=== PATIENT | male | born 1930 | race Caucasian/White ===

== ENCOUNTER 2016-10-24 12:21 | Inpatient (IN) ==
[2016-10-24] MEDS ORDERED: Ipratropium/Albuterol Neb 3 ML IH ONE (12:23)
--- NOTE | 2016-10-24 12:29 | Emergency Department Note ---
Disposition Clinical Impression: Community acquired pneumonia, Hypoxia Disposition: Admitted As Inpatient Condition: Fair Referrals: Erica Bennett MD [Primary Care Provider] - Forms: ED Satisfaction Letter Time of Disposition: 14:21 SOB HPI - General Chief Complaint: ED Shortness of Breath/Dyspnea Stated Complaint: weakness/cough Time Seen by Provider: 10/24/16 12:22 Source: patient, EMS Mode of arrival: EMS Limitations: no limitations Nursing Notes Reviewed: Yes Vital Signs Reviewed: Yes - History of Present Illness 86-year-old with progressive generalized weakness for last couple days has been falling and has had a productive cough. When squad arrived his pulse ox was in the mid 80s. Squad indicates that there is concern by the patient and family of pneumonia. Pt Subjective Complaint: shortness of breath, cough Context: recent illness Severity: moderate Consistency/Duration: constant Improves with: nothing Worsens with: exertion Associated symptoms: Reports: cough, wheezing Treatment prior to arrival: oxygen, bronchodilator Cough present: Yes Cough Description: Involuntary Cough Frequency: Intermittent Sputum production: Yes Sputum Color: Yellow, Green - Related Data Home Medications Medication Instructions Recorded Confirmed Alprazolam [Xanax 0.25 MG Tablet] 0.25 mg PO BID 02/27/16 02/27/16 Amlodipine [Norvasc] 10 mg PO DAILY 02/27/16 02/27/16 Atorvastatin [Lipitor] 10 mg PO HS 02/27/16 02/27/16 Clopidogrel [Plavix] 75 mg PO DAILY 02/27/16 02/27/16 Cyanocobalamin (B-12) [Vitamin B12] 1,000 mcg IM QMONTH 02/27/16 02/27/16 Gabapentin [Neurontin] 600 mg PO BID 02/27/16 02/27/16 Glimepiride [Amaryl] 4 mg PO DAILY 02/27/16 02/27/16 Lisinopril [Zestril] 20 mg PO DAILY 02/27/16 02/27/16 Metformin [Glucophage] 1,000 mg PO BIDWM 02/27/16 02/27/16 Pramipexole [Mirapex] 0.25 mg PO DAILY 02/27/16 02/27/16 Ranitidine HCl [Zantac 75] 150 mg PO BID 02/27/16 02/27/16 Tamsulosin [Flomax] 0.8 mg PO DAILY 02/27/16 02/27/16 Allergies Allergy/AdvReac Type Severity Reaction Status Date / Time Sulfa (Sulfonamide Allergy Rash Verified 02/27/16 07:55 Antibiotics) carbidopa AdvReac Gastrointestinal Verified 02/27/16 07:55 Upset clonazepam AdvReac Gastrointestinal Verified 02/27/16 07:55 Upset clotrimazole AdvReac Gastrointestinal Verified 02/27/16 07:55 Upset fexofenadine [From Brandy] AdvReac Gastrointestinal Verified 02/27/16 07:55 Upset guaifenesin [From Robitussin] AdvReac Gastrointestinal Verified 02/27/16 07:55 Upset hydrochlorothiazide AdvReac Rash Verified 02/27/16 07:55 levodopa [From Sinemet] AdvReac Gastrointestinal Verified 02/27/16 07:55 Upset pioglitazone [From Actos] AdvReac Gastrointestinal Verified 02/27/16 07:55 Upset ropinirole [From Requip] AdvReac Gastrointestinal Verified 02/27/16 07:55 Upset sertraline [From Zoloft] AdvReac Drowsy Verified 02/27/16 07:55 tamsulosin [From Flomax] AdvReac Gastrointestinal Verified 02/27/16 07:55 Upset Constitutional: Denies: fever, chills, weakness, weight change Eyes: Denies: eye pain, eye discharge, vision change ENT ED: Denies: ear pain, throat pain, dental pain, hearing loss, epistaxis, congestion, dysphagia Cardiovascular: Denies: chest pain, palpitations, dyspnea on exertion, edema, syncope Respiratory: Reports: cough, dyspnea, wheezes. Denies: hemoptysis, stridor Gastrointestinal: Denies: abdominal pain, nausea, vomiting, diarrhea, constipation, hematemesis, melena, hematochezia Genitourinary: Denies: urgency, dysuria, frequency, hematuria Musculoskeletal: Denies: back pain, neck pain, arthralgia, myalgia Integumentary: Denies: rash, abrasion, lesions Neurological: Denies: headache, weakness, numbness, paresthesias, confusion, abnormal gait, vertigo Psychiatric: Denies: anxiety, depression, suicidal thoughts, homicidal thoughts , auditory hallucinations, visual hallucinations Endocrine: Denies: fatigue Hematological/Lymphatic: Denies: easy bleeding, easy bruising Allergic/Immunologic: Denies: facial swelling, urticaria Past Medical History - Past Medical History Medical history: Reports: diabetes, glaucoma, hyperlipidemia, hypertension, renal disease, valvular heart disease Surgical history: Reports: cholecystectomy Psychiatric history: Reports: no psych history - Social History Smoking Status: Never smoker Alcohol use: Reports: none Drug use: Reports: none Physical Exam - General Limitations: no limitations General appearance: alert, in distress (Mild) - Head Head exam: atraumatic, normocephalic, normal inspection - Eye Eye exam: Present: normal appearance, PERRL, EOMI - ENT ENT exam: normal exam, normal oropharynx, mucous membranes moist - Neck Neck exam: Present: normal inspection, full ROM, trachea midline - Chest Chest inspection: Present: normal inspection, symmetric chest wall rise - Respiratory Respiratory exam: Present: wheezes, prolonged expiratory phase - Cardiovascular Cardiovascular exam: Present: regular rate, normal rhythm, normal heart sounds - Abdominal Exam Abdominal exam: Present: soft, Non-Tender. Absent: tenderness, distention, guarding, rebound, rigidity - Extremities Exam Extremities exam: Present: normal inspection, full ROM. Absent: tenderness, pedal edema - Expanded Lower Extremity Exam Neurovascular/Tendon exam: Absent: motor deficit, sensory deficit, tendon deficit Gait: not tested/not observed - Back Exam Back exam: Present: normal inspection, full ROM. Absent: tenderness - Neurological Exam Neurological exam: Present: alert, oriented X3 - Psychiatric Psychiatric exam: Present: normal affect, normal mood - Skin Skin exam: Present: warm, dry, intact, normal color Course - Reevaluation(s) Reevaluation #1: 86-year-old comes in with cough congestion. Patient was hypoxic. Chest x-ray shows pneumonia. Will admit for further evaluation and treatment. Time: 14:34 - Consultations Consultation #1: Discussed with , admit. Time: 14:33 Vital Signs Temperature 98.2 F 10/24/16 12:28 Pulse Rate 93 10/24/16 12:28 Respiratory Rate 20 10/24/16 12:28 Blood Pressure 106/57 10/24/16 12:28 O2 Sat by Pulse Oximetry 90 L 10/24/16 12:28 Temperature 98.2 F 10/24/16 12:28 Pulse Rate 76 10/24/16 14:03 Respiratory Rate 16 10/24/16 14:03 Blood Pressure 105/52 10/24/16 14:03 O2 Sat by Pulse Oximetry 96 10/24/16 14:03 Oxygen Delivery Oxygen Delivery Nasal Cannula Shortness of Breath/Dyspnea - Lab Data Result diagrams: 10/24/16 13:02 10/24/16 13:02 Lab Results 10/24/16 10/24/16 10/24/16 Range/Units 12:51 13:02 13:02 WBC 5.6 (4.3-11.1) K/mcL RBC 4.15 L (4.19-5.50) M/mcL Hgb 13.4 (12.9-16.9) g/dL Hct 41.1 (37.5-50.1) % MCV 99.0 (83.0-100.0) fL MCH 32.3 (28.0-33.3) pg MCHC 32.6 (31.6-35.5) g/dL RDW 12.7 (11.5-14.5) % Plt Count 137 L (140-400) K/mcL MPV 9.1 L (9.4-12.4) fL Immature Gran % 0.4 (0-4) % Seg Neutrophils % 75.5 % Lymphocytes % 14.2 % Monocytes % 7.7 % Eosinophils % 1.8 % Basophils % 0.4 % Neutrophils # 4.2 (1.6-8.9) K/mcL Lymphocytes # 0.8 (0.6-4.6) K/mcL Monocytes # 0.4 (0.0-1.3) K/mcL Eosinophils # 0.1 (0.0-0.6) K/mcL Basophils # 0.0 (0.0-0.2) K/mcL ABG pH 7.40 (7.32-7.45) pH Units ABG pCO2 44 (35-45) mmHg ABG pO2 66 L (85-104) mmHg ABG HCO3 27.3 H (21-27) mEQ/L ABG Total CO2 28.7 H (20-26) mEq/L ABG O2 Saturation 93 L (95-98) % ABG Base Excess 2.1 (-2.0 to 3.0) mEq/L Blood Gas Modality NC Inspired O2 26 % Sodium 139 (136-145) mEq/L Potassium 4.8 H (3.5-4.5) mEq/L Chloride 104 (98-109) mEq/L Carbon Dioxide 26 (19-29) mEq/L BUN 40 H (8-26) mg/dL Creatinine 1.45 H (0.72-1.25) mg/dL Est GFR ( Amer) 56 L (> 60) Est GFR (Non-Af Amer) 46 L (> 60) BUN/Creatinine Ratio 28 H (6-26) Glucose 144 H (70-99) mg/dL Calculated Osmolality 300 (280-300) Lactic Acid (0.5-2.2) mmol/L Calcium 9.3 (8.6-10.8) mg/dL Troponin I (0-0.03) ng/mL B-Natriuretic Peptide (0-100) pg/mL Specimen Rejected 10/24/16 10/24/16 10/24/16 Range/Units 13:02 13:02 13:02 WBC (4.3-11.1) K/mcL RBC (4.19-5.50) M/mcL Hgb (12.9-16.9) g/dL Hct (37.5-50.1) % MCV (83.0-100.0) fL MCH (28.0-33.3) pg MCHC (31.6-35.5) g/dL RDW (11.5-14.5) % Plt Count (140-400) K/mcL MPV (9.4-12.4) fL Immature Gran % (0-4) % Seg Neutrophils % % Lymphocytes % % Monocytes % % Eosinophils % % Basophils % % Neutrophils # (1.6-8.9) K/mcL Lymphocytes # (0.6-4.6) K/mcL Monocytes # (0.0-1.3) K/mcL Eosinophils # (0.0-0.6) K/mcL Basophils # (0.0-0.2) K/mcL ABG pH (7.32-7.45) pH Units ABG pCO2 (35-45) mmHg ABG pO2 (85-104) mmHg ABG HCO3 (21-27) mEQ/L ABG Total CO2 (20-26) mEq/L ABG O2 Saturation (95-98) % ABG Base Excess (-2.0 to 3.0) mEq/L Blood Gas Modality Inspired O2 % Sodium (136-145) mEq/L Potassium (3.5-4.5) mEq/L Chloride (98-109) mEq/L Carbon Dioxide (19-29) mEq/L BUN (8-26) mg/dL Creatinine (0.72-1.25) mg/dL Est GFR ( Amer) (> 60) Est GFR (Non-Af Amer) (> 60) BUN/Creatinine Ratio (6-26) Glucose (70-99) mg/dL Calculated Osmolality (280-300) Lactic Acid 1.7 (0.5-2.2) mmol/L Calcium (8.6-10.8) mg/dL Troponin I 0.04 H* (0-0.03) ng/mL B-Natriuretic Peptide 98 (0-100) pg/mL Specimen Rejected 10/24/16 Range/Units 14:02 WBC (4.3-11.1) K/mcL RBC (4.19-5.50) M/mcL Hgb (12.9-16.9) g/dL Hct (37.5-50.1) % MCV (83.0-100.0) fL MCH (28.0-33.3) pg MCHC (31.6-35.5) g/dL RDW (11.5-14.5) % Plt Count (140-400) K/mcL MPV (9.4-12.4) fL Immature Gran % (0-4) % Seg Neutrophils % % Lymphocytes % % Monocytes % % Eosinophils % % Basophils % % Neutrophils # (1.6-8.9) K/mcL Lymphocytes # (0.6-4.6) K/mcL Monocytes # (0.0-1.3) K/mcL Eosinophils # (0.0-0.6) K/mcL Basophils # (0.0-0.2) K/mcL ABG pH (7.32-7.45) pH Units ABG pCO2 (35-45) mmHg ABG pO2 (85-104) mmHg ABG HCO3 (21-27) mEQ/L ABG Total CO2 (20-26) mEq/L ABG O2 Saturation (95-98) % ABG Base Excess (-2.0 to 3.0) mEq/L Blood Gas Modality Inspired O2 % Sodium (136-145) mEq/L Potassium (3.5-4.5) mEq/L Chloride (98-109) mEq/L Carbon Dioxide (19-29) mEq/L BUN (8-26) mg/dL Creatinine (0.72-1.25) mg/dL Est GFR ( Amer) (> 60) Est GFR (Non-Af Amer) (> 60) BUN/Creatinine Ratio (6-26) Glucose (70-99) mg/dL Calculated Osmolality (280-300) Lactic Acid (0.5-2.2) mmol/L Calcium (8.6-10.8) mg/dL Troponin I (0-0.03) ng/mL B-Natriuretic Peptide (0-100) pg/mL Specimen Rejected Labelling - EKG Data EKG attestation: Yes I reviewed and interpreted this EKG. EKG shows normal: Reports: sinus rhythm Rate: Reports: normal Rhythm: Reports: NSR [place]/QRS: Reports: IVCD Heart block present: Reports: 1st Degree When compared to previous EKG there are: no significant changes (02/27/2016) Interpretation: Reports: no acute changes
[2016-10-24 12:58] LABS: ABG Base Excess 2.1 mEq/L (-2.0 to 3.0); ABG HCO3 27.3 mEQ/L (21-27); ABG Oxygen Saturation 93 % (95-98); ABG PCO2 44 mmHg (35-45); ABG PO2 66 mmHg (85-104); ABG TCO2 28.7 mEq/L (20-26); Blood Gas FiO2 26 %
[2016-10-24 13:10] LABS: Basophils % 0.4 %; Eosinophils # 0.1 K/mcL (0.0-0.6); Eosinophils % 1.8 %; Hematocrit 41.1 % (37.5-50.1); Hemoglobin 13.4 g/dL (12.9-16.9); Immature Granulocytes % 0.4 % (0-4); Lymphocytes # 0.8 K/mcL (0.6-4.6); Lymphocytes % 14.2 %; Mean Corpuscular HGB Conc 32.6 g/dL (31.6-35.5); Mean Corpuscular Hemoglobin 32.3 pg (28.0-33.3); Mean Platelet Volume 9.1 fL (9.4-12.4); Monocytes # 0.4 K/mcL (0.0-1.3); Monocytes % 7.7 %; Neutrophils # 4.2 K/mcL (1.6-8.9); Platelet Count 137 K/mcL (140-400); Red Blood Count 4.15 M/mcL (4.19-5.50); Red Cell Distribution Width 12.7 % (11.5-14.5); Segmented Neutrophils % 75.5 %
[2016-10-24 13:24] LABS: Calcium 9.3 mg/dL (8.6-10.8); Potassium 4.8 mEq/L (3.5-4.5)
[2016-10-24] MEDS ORDERED: Levofloxacin 750 MG/150 ML 750 MG/150 ML BAG IVPB ONE (13:53)
[2016-10-24] MEDS ORDERED: Ondansetron 4 MG/2 ML VIAL IVP PRN (15:01)
[2016-10-24] MEDS ORDERED: Naloxone 0.4 MG/ML INJ IVP PRN (15:01)
[2016-10-24] MEDS ORDERED: Acetaminophen 325 MG TABLET PO PRN (15:01)
[2016-10-24] MEDS ORDERED: D5% in Water 1,000 ML IV PRN (15:05)
[2016-10-24] MEDS ORDERED: Dextrose Gel 15 GM PO PRN ×2 (15:05)
[2016-10-24] MEDS ORDERED: *HR* Dextrose 50 % in Water (Syg) 50 ML SYRINGE IVP PRN (15:05)
--- NOTE | 2016-10-24 15:08 | Internal Med History&Physical ---
Date of Encounter: 10/24/16 Time of Encounter: 14:35 Internal Medicine - H&P: HPI Chief complaint: Shortness of breath, cough x 7 weeks, fall x 1 day Admitted From: Emergency Dept Plans for Post Hospital Care: Home History of present illness: Mr. Crowder is a 86 year old male with medical history significant for DM2, hyperlipidemia, hypertension, CKDIII, valvular heart disease, BPH, presents with cough of 7 weeks duration, progressive SOB and generalized weekness. He fell yesterday and had to crawl to get to the closest seat. He was brought by EMS. He COUGH IS INTERMITTENT PRODUCTIVE OF clear mucus. He reports lower chest wall and upper abdominal pain. No orthopnea, no PND, no leg swelling. No fever, no other constitutional symptoms. No reported history of heart failure. He had a loop monitor placed by Dr Velasquez to evaluate for arrhythmia, given a history of recurrent falls in the past. His falls resolved after institution of once month vitamin B12 SHOTS. EMS reports he was hypoxic (80s) in transit. The family had concern for pneumonia. He is FULL CODE as per discussion. He has a living will. He nominates his , Argelia Crowder as his NOK/POA ([phone]) . Medical history: Reports: DM2, glaucoma, hyperlipidemia, hypertension, CKDIII, valvular heart disease, BPH, carotid artery disease, RLS, GERD Surgical history: Reports: cholecystectomy Psychiatric history: Reports: anxiety Smoking Status: Never smoker Alcohol use: Reports: none Drug use: Reports: none Family history: Father: Parkinson's disease, mother: heart failure, son: multiple myeloma, brother: HTN ROS: Cough, abdominal soreness, chest pain from coughing, lethargy, SOB/FORRESTER, positive, he denies orthopea, PND, no hemoptysis, unchaged urinary symptoms ( poor urine streaming). no GI symptoms, no new-onset neurological symptoms. No constitutional symptoms. A 10-point ROS was performed, positives and relevant negatives are detailed, system-symptom not mentioned assumed negative unless otherwise stated. Vital Signs Temperature 98.2 F 10/24/16 12:28 Pulse Rate 93 10/24/16 12:28 Respiratory Rate 20 10/24/16 12:28 Blood Pressure 106/57 10/24/16 12:28 O2 Sat by Pulse Oximetry 90 L 10/24/16 12:28 Temperature 98.2 F 10/24/16 12:28 Pulse Rate 76 10/24/16 14:03 Respiratory Rate 16 10/24/16 14:03 Blood Pressure 105/52 10/24/16 14:03 O2 Sat by Pulse Oximetry 96 10/24/16 14:03 O/E: Not in distress,wearing oxygen, saturating at 95%. 2-3L/min HEENT: Not pale, anicteric, afebrile, acyanotic, no JND Chest: Bibasilar fine crackles., otherwise clear Heart: RRR, HS1/2, no murmur Abdomen: soft, mild distension (chronic), non-tender, no masses. 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 Lab Results 10/24/16 10/24/16 10/24/16 Range/Units 12:51 13:02 13:02 WBC 5.6 (4.3-11.1) K/mcL RBC 4.15 L (4.19-5.50) M/mcL Hgb 13.4 (12.9-16.9) g/dL Hct 41.1 (37.5-50.1) % MCV 99.0 (83.0-100.0) fL MCH 32.3 (28.0-33.3) pg MCHC 32.6 (31.6-35.5) g/dL RDW 12.7 (11.5-14.5) % Plt Count 137 L (140-400) K/mcL MPV 9.1 L (9.4-12.4) fL Immature Gran % 0.4 (0-4) % Seg Neutrophils % 75.5 % Lymphocytes % 14.2 % Monocytes % 7.7 % Eosinophils % 1.8 % Basophils % 0.4 % Neutrophils # 4.2 (1.6-8.9) K/mcL Lymphocytes # 0.8 (0.6-4.6) K/mcL Monocytes # 0.4 (0.0-1.3) K/mcL Eosinophils # 0.1 (0.0-0.6) K/mcL Basophils # 0.0 (0.0-0.2) K/mcL ABG pH 7.40 (7.32-7.45) pH Units ABG pCO2 44 (35-45) mmHg ABG pO2 66 L (85-104) mmHg ABG HCO3 27.3 H (21-27) mEQ/L ABG Total CO2 28.7 H (20-26) mEq/L ABG O2 Saturation 93 L (95-98) % ABG Base Excess 2.1 (-2.0 to 3.0) mEq/L Blood Gas Modality NC Inspired O2 26 % Sodium 139 (136-145) mEq/L Potassium 4.8 H (3.5-4.5) mEq/L Chloride 104 (98-109) mEq/L Carbon Dioxide 26 (19-29) mEq/L BUN 40 H (8-26) mg/dL Creatinine 1.45 H (0.72-1.25) mg/dL Est GFR ( Amer) 56 L (> 60) Est GFR (Non-Af Amer) 46 L (> 60) BUN/Creatinine Ratio 28 H (6-26) Glucose 144 H (70-99) mg/dL Calculated Osmolality 300 (280-300) Lactic Acid (0.5-2.2) mmol/L Calcium 9.3 (8.6-10.8) mg/dL Troponin I (0-0.03) ng/mL B-Natriuretic Peptide (0-100) pg/mL Specimen Rejected 10/24/16 10/24/16 10/24/16 Range/Units 13:02 13:02 13:02 WBC (4.3-11.1) K/mcL RBC (4.19-5.50) M/mcL Hgb (12.9-16.9) g/dL Hct (37.5-50.1) % MCV (83.0-100.0) fL MCH (28.0-33.3) pg MCHC (31.6-35.5) g/dL RDW (11.5-14.5) % Plt Count (140-400) K/mcL MPV (9.4-12.4) fL Immature Gran % (0-4) % Seg Neutrophils % % Lymphocytes % % Monocytes % % Eosinophils % % Basophils % % Neutrophils # (1.6-8.9) K/mcL Lymphocytes # (0.6-4.6) K/mcL Monocytes # (0.0-1.3) K/mcL Eosinophils # (0.0-0.6) K/mcL Basophils # (0.0-0.2) K/mcL ABG pH (7.32-7.45) pH Units ABG pCO2 (35-45) mmHg ABG pO2 (85-104) mmHg ABG HCO3 (21-27) mEQ/L ABG Total CO2 (20-26) mEq/L ABG O2 Saturation (95-98) % ABG Base Excess (-2.0 to 3.0) mEq/L Blood Gas Modality Inspired O2 % Sodium (136-145) mEq/L Potassium (3.5-4.5) mEq/L Chloride (98-109) mEq/L Carbon Dioxide (19-29) mEq/L BUN (8-26) mg/dL Creatinine (0.72-1.25) mg/dL Est GFR ( Amer) (> 60) Est GFR (Non-Af Amer) (> 60) BUN/Creatinine Ratio (6-26) Glucose (70-99) mg/dL Calculated Osmolality (280-300) Lactic Acid 1.7 (0.5-2.2) mmol/L Calcium (8.6-10.8) mg/dL Troponin I 0.04 H* (0-0.03) ng/mL B-Natriuretic Peptide 98 (0-100) pg/mL Specimen Rejected 10/24/16 Range/Units 14:02 WBC (4.3-11.1) K/mcL RBC (4.19-5.50) M/mcL Hgb (12.9-16.9) g/dL Hct (37.5-50.1) % MCV (83.0-100.0) fL MCH (28.0-33.3) pg MCHC (31.6-35.5) g/dL RDW (11.5-14.5) % Plt Count (140-400) K/mcL MPV (9.4-12.4) fL Immature Gran % (0-4) % Seg Neutrophils % % Lymphocytes % % Monocytes % % Eosinophils % % Basophils % % Neutrophils # (1.6-8.9) K/mcL Lymphocytes # (0.6-4.6) K/mcL Monocytes # (0.0-1.3) K/mcL Eosinophils # (0.0-0.6) K/mcL Basophils # (0.0-0.2) K/mcL ABG pH (7.32-7.45) pH Units ABG pCO2 (35-45) mmHg ABG pO2 (85-104) mmHg ABG HCO3 (21-27) mEQ/L ABG Total CO2 (20-26) mEq/L ABG O2 Saturation (95-98) % ABG Base Excess (-2.0 to 3.0) mEq/L Blood Gas Modality Inspired O2 % Sodium (136-145) mEq/L Potassium (3.5-4.5) mEq/L Chloride (98-109) mEq/L Carbon Dioxide (19-29) mEq/L BUN (8-26) mg/dL Creatinine (0.72-1.25) mg/dL Est GFR ( Amer) (> 60) Est GFR (Non-Af Amer) (> 60) BUN/Creatinine Ratio (6-26) Glucose (70-99) mg/dL Calculated Osmolality (280-300) Lactic Acid (0.5-2.2) mmol/L Calcium (8.6-10.8) mg/dL Troponin I (0-0.03) ng/mL B-Natriuretic Peptide (0-100) pg/mL Specimen Rejected Labelling CXR: Cardiomegaly with perihilar and interstitial prominence consistent with congestive heart failure vs interstitial pneumonia. No definitive infiltrates. EKG: NSR, first degree heart block, IVCD, no significant when compared to EKG of 02/27/2016. IMP Interstitial pneumonia vs decompensated diastolic heart failure, (failed out- patient treatment). Hypoxic respiratory failure related to the above Fall related to hypoxia and or deconditioning Marginal elevation of troponin likely related to diastolic heart failure Chronic morbidities HTN HLD Carotid artery disease CKDIII BPH Anxiety disorder Restless leg syndrome. PLAN Admit Obtain CT chest and 2D ECHO Lasix IVP 40 mg stat, then 20mg QD Urine for legionella antigen, rapid influenza test, serum for mycoplasma IgG & M. Levaquin IV 500 MG QD Oxygen supplentation by nasal cannula to keep pulse ox>94% Trend troponin Levonox 30mg SC for DVT prophylaxis Ranitidine 150mg po BID for GERD and GI prophylaxis Hold Glimepride and Metformin Low dose insulin sliding scale, accuchecks QAC/HS Hold Lisinopril Continue other medications of chronic morbidities I discussed my findings and assessment with the patient, his and his son are at bedside, they verbalized understanding and are agreeable to admission. He is admitted toto failed out-patient treatment, hypoxia. He needs further evaluation. Past Med Surg Social Fam HX - Past Medical History Medical history: diabetes, glaucoma, hyperlipidemia, hypertension, renal disease , valvular heart disease Psychiatric history: no psych history - Past Surgical History Surgical History: cholecystectomy - Social History Smoking Status: Never smoker Alcohol use: none Drug use: none Internal Medicine - H&P: Meds Alprazolam [Xanax 0.25 MG Tablet] 0.25 mg PO BID 02/27/16 [History] Amlodipine [Norvasc] 10 mg PO DAILY 02/27/16 [History] Atorvastatin [Lipitor] 10 mg PO HS 02/27/16 [History] Clopidogrel [Plavix] 75 mg PO DAILY 02/27/16 [History] Cyanocobalamin (B-12) [Vitamin B12] 1,000 mcg IM QMONTH 02/27/16 [History] Gabapentin [Neurontin] 600 mg PO BID 02/27/16 [History] Glimepiride [Amaryl] 4 mg PO DAILY 02/27/16 [History] Lisinopril [Zestril] 20 mg PO DAILY 02/27/16 [History] Metformin [Glucophage] 1,000 mg PO BIDWM 02/27/16 [History] Pramipexole [Mirapex] 0.25 mg PO DAILY 02/27/16 [History] Ranitidine HCl [Zantac 75] 150 mg PO BID 02/27/16 [History] Tamsulosin [Flomax] 0.8 mg PO DAILY 02/27/16 [History] Allergies Sulfa (Sulfonamide Antibiotics) Allergy (Verified 02/27/16 07:55) Rash carbidopa Adverse Reaction (Verified 02/27/16 07:55) Gastrointestinal Upset clonazepam Adverse Reaction (Verified 02/27/16 07:55) Gastrointestinal Upset clotrimazole Adverse Reaction (Verified 02/27/16 07:55) Gastrointestinal Upset fexofenadine [From Brandy] Adverse Reaction (Verified 02/27/16 07:55) Gastrointestinal Upset guaifenesin [From Robitussin] Adverse Reaction (Verified 02/27/16 07:55) Gastrointestinal Upset hydrochlorothiazide Adverse Reaction (Verified 02/27/16 07:55) Rash levodopa [From Sinemet] Adverse Reaction (Verified 02/27/16 07:55) Gastrointestinal Upset pioglitazone [From Actos] Adverse Reaction (Verified 02/27/16 07:55) Gastrointestinal Upset ropinirole [From Requip] Adverse Reaction (Verified 02/27/16 07:55) Gastrointestinal Upset sertraline [From Zoloft] Adverse Reaction (Verified 02/27/16 07:55) Drowsy tamsulosin [From Flomax] Adverse Reaction (Verified 02/27/16 07:55) Gastrointestinal Upset All Systems PM: A 10-system review of systems was performed and is negative for pertinent findings except as documented above in the HPI. - Constitutional Vitals: Temp Pulse Resp BP Pulse Ox 98.2 F 76 16 105/52 96 10/24/16 12:28 10/24/16 14:03 10/24/16 14:03 10/24/16 14:03 10/24/16 14:03 Internal Med - H&P Results - Labs CBC & Chem 7: 10/24/16 13:02 10/24/16 13:02 Labs: Short CBC 10/24/16 Range/Units 13:02 WBC 5.6 (4.3-11.1) K/mcL Hgb 13.4 (12.9-16.9) g/dL Hct 41.1 (37.5-50.1) % Plt Count 137 L (140-400) K/mcL Neutrophils # 4.2 (1.6-8.9) K/mcL BMP 10/24/16 13:02 Sodium 139 Potassium 4.8 H Chloride 104 Carbon Dioxide 26 BUN 40 H Creatinine 1.45 H Glucose 144 H Calcium 9.3 Cardiac Enzymes 10/24/16 Range/Units 13:02 Troponin I 0.04 H* (0-0.03) ng/mL - ABG Interpretation ABG results: 10/24/16 12:51 ABG pH 7.40 ABG pCO2 44 ABG pO2 66 L ABG HCO3 27.3 H ABG Total CO2 28.7 H ABG O2 Saturation 93 L ABG Base Excess 2.1 - Impressions ITS Impressions Chest X-Ray 10/24/16 12:23 IMPRESSION: Findings are most consistent with mild congestive heart failure. Superimposed basilar pneumonia is not excluded. D/ / Edgar Ramsey MD / Edgar Ramsey MD Interpreting Provider: Edgar Ramsey MD
[2016-10-24] MEDS ORDERED: Furosemide 40 MG/4 ML VIAL IVP ONE (15:16)
[2016-10-24] MEDS: Albuterol 2.5 MG/3 ML NEBULIZER IH SCH ×2 (15:49→22:09)
[2016-10-24] MEDS: Benzonatate 100 MG CAPSULE PO SCH ×2 (17:38→20:50)
[2016-10-24] MEDS: Insulin LISPRO 300 UNITS/3 ML VIAL SQ SCH ×2 (17:58→20:51)
[2016-10-24 19:55] LABS: Hemoglobin A1C 8.2 %
[2016-10-24] MEDS: ALPRAZolam 0.25 MG TABLET PO SCH (20:50)
[2016-10-24] MEDS: Famotidine 20 MG TABLET PO SCH (20:50)
[2016-10-24] MEDS: Gabapentin 300 MG CAPSULE PO SCH (20:50)
[2016-10-24] MEDS: Finasteride 5 MG TABLET PO SCH (20:50)
[2016-10-24] MEDS ORDERED: Budesonide/Formoterol 160/4.5 MDI IH SCH (22:00)
[2016-10-25] MEDS: Albuterol 2.5 MG/3 ML NEBULIZER IH SCH ×4 (04:42→23:18)
[2016-10-25 05:52] LABS: Calcium 8.8 mg/dL (8.6-10.8); Potassium 4.6 mEq/L (3.5-4.5)
[2016-10-25] MEDS ORDERED: *HR* Enoxaparin 40 MG/0.4 ML SYRINGE SQ SCH ×2 (06:00→09:38)
[2016-10-25] MEDS: Insulin LISPRO 300 UNITS/3 ML VIAL SQ SCH ×4 (08:03→20:14)
[2016-10-25] MEDS: Furosemide 20 MG/2 ML VIAL IVP SCH (08:04)
[2016-10-25] MEDS: Famotidine 20 MG TABLET PO SCH ×2 (08:04→20:14)
[2016-10-25] MEDS: Gabapentin 300 MG CAPSULE PO SCH ×2 (08:06→20:12)
[2016-10-25] MEDS: Benzonatate 100 MG CAPSULE PO SCH ×3 (08:06→20:13)
[2016-10-25] MEDS: ALPRAZolam 0.25 MG TABLET PO SCH ×2 (08:06→20:13)
[2016-10-25] MEDS: amLODIPine 5 MG TABLET PO SCH (08:08)
[2016-10-25] MEDS ORDERED: Finasteride 5 MG TABLET PO SCH (09:00)
[2016-10-25] MEDS: GuaiFENesin/Codeine Oral Soln 5 ML UDC PO PRN ×2 (09:30→18:20)
--- NOTE | 2016-10-25 09:52 | Internal Med Progress Note ---
Date of Encounter: 10/25/16 Time of Encounter: 09:49 - Assessment and plan (1) Acute respiratory failure with hypoxia Current Visit: Yes Status: Acute Assessment and plan: Chest x-ray is suggestive of mild cardiomegaly and pulmonary vascular condition along with bibasilar infiltrates. Likely secondary to pneumonia. Continue IV antibiotics and low-dose IV Lasix. Echocardiogram shows preserved ejection fraction, mild left ventricular diastolic dysfunction, mild pulmonary and tricuspid regurgitation along with mild pulmonary hypertension. Continue supplemental oxygen, improving oxygen requirements. (2) Community acquired pneumonia Current Visit: Yes Status: Acute Assessment and plan: Plan as above. Patient appears weak, physical and occupational therapy evaluation. (3) Essential hypertension Current Visit: Yes Status: Chronic (4) BPH (benign prostatic hyperplasia) Current Visit: Yes Status: Chronic Qualifiers: Prostatic enlargement morphology: unspecified morphology Lower urinary tract symptom presence: presence of symptoms unspecified Qualified Code(s): N40.0 - Benign prostatic hyperplasia without lower urinary tract symptoms (5) Diabetes mellitus Current Visit: Yes Status: Chronic Assessment and plan: Hemoglobin A1c noted to be 8.2%. Continue Accu-Chek blood glucose monitoring with sliding scale insulin. Diabetic diet. Qualifiers: Diabetes mellitus type: type 2 Diabetes mellitus complication status: with kidney complications Diabetes mellitus complication detail: with chronic kidney disease Diabetes mellitus termite 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 helper insulin use: without termite 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 helper use Chronic kidney disease stage: stage 3 (moderate) Qualified Code(s): E11.22 - Type 2 diabetes mellitus with diabetic chronic kidney disease; N18.3 - Chronic kidney disease, stage 3 (moderate) (6) CKD (chronic kidney disease) Current Visit: Yes Status: Chronic Assessment and plan: Patient noted to have acute on chronic renal failure likely related to underlying infection along with the use of IV diuretics. Serum creatinine currently trending down to his baseline. Continue to monitor, dose antibiotics according to current GFR. Qualifiers: Chronic kidney disease stage: stage 3 (moderate) Qualified Code(s): N18.3 - Chronic kidney disease, stage 3 (moderate) - Subjective Interval history: Noted to have hacking cough, mostly non-productive, with associated shortness of breath; no chest pain, palpitations, dizziness, nausea or vomiting; has implantable loop recorder in place for almost an year for unexplained syncope, which has been uneventful so far; - Constitutional Vitals: Temp Pulse Resp BP Pulse Ox 97.6 F 63 18 95/57 92 L 10/25/16 07:19 10/25/16 07:19 10/25/16 07:19 10/25/16 07:19 10/25/16 07:19 General appearance: Present: mild distress, A&O X 3, answers questions appropriately - Head Head exam: Present: atraumatic, normocephalic - Neck Neck exam general surgery: Present: supple, trachea midline. Absent: lymphadenopathy - Respiratory Respiratory exam: Present: rales (bibasal crepts+). Absent: accessory muscle use, rhonchi, wheezes - Cardiovascular Cardiovascular exam: Present: RRR, +S1, +S2. Absent: diastolic murmur, gallop, rubs, systolic murmur - GI/Abdominal GI/Abdominal exam: Present: normal bowel sounds, soft, no peritoneal signs. Absent: distended, tenderness - Extremities Exam Extremities exam: Present: full ROM, pedal edema (trace), warm, radial pulses palpable and symetrical. Absent: calf tenderness, cyanotic - Neurological Exam Neurological exam: Present: CN II-XII intact, oriented X3, no focal deficits. Absent: pronater drift, facial droop, speech deficit - Skin Skin exam: Present: dry, intact Internal Medicine: Result - Labs CBC & Chem 7: 10/24/16 13:02 10/25/16 04:31 Labs: BMP 10/25/16 04:31 Sodium 142 Potassium 4.6 H Chloride 104 Carbon Dioxide 28 BUN 37 H Creatinine 1.39 H Glucose 55 L Calcium 8.8 Cardiac Enzymes 10/24/16 10/25/16 Range/Units 19:39 04:31 Troponin I 0.03 0.03 (0-0.03) ng/mL - ABG Interpretation ABG results: ABG ABG pH 7.40 pH Units (7.32-7.45) 10/24/16 12:51 ABG pCO2 44 mmHg (35-45) 10/24/16 12:51 ABG pO2 66 mmHg (85-104) L 10/24/16 12:51 ABG O2 Saturation 93 % (95-98) L 10/24/16 12:51 Consult Discharge Plan - Plan Referrals: Erica Bennett MD [Primary Care Provider] -
--- NOTE | 2016-10-25 13:38 | ECHO - Doppler Report ---
Echocardiogram Name: Michael Crowder Date of Study: 10/25/2016 Date: 1930 Ht: 63.0 in Medical Record#: [id number] Age: 86 Wt: 143.0 lb Gender: Male BSA: 1.68 Order #: [id number] Location: [facility] Room #: 2A23 Reading Physician: Sagar Gomez DO, WILLIAM, EMILEE PARRA Medical Field Representative: [place] RDCS Ordering Physician: Chris Dunne MD Primary Physician: None Indications: Diastolic heart failure, Shortness of breath Impressions: LVEF 65%. Normal LV chamber size, wall thickness and function. Mild left ventricular diastolic dysfunction. Normal right ventricular structure and function. Mild tricuspid regurgitation. Mild pulmonic regurgitation. Borderline mild pulmonary hypertension. Estimated RVSP is 36 mmHg. No evidence of PFO with agitated saline contrast. Left Ventricular Wall Motion: Rest Echo Findings All wall segments showed normal motion. Findings: Study Quality * Technically adequate exam. ECG Findings * Normal sinus rhythm. Left Ventricle * LVEF 65%. * Normal LV chamber size, wall thickness and function. * Mild left ventricular diastolic dysfunction. Right Ventricle * Normal right ventricular structure and function. Left Atrium * Mildly dilated left atrium. Right Atrium * Normal right atrial size. Interatrial Septum * No evidence of PFO by color Doppler. * No evidence of PFO with agitated saline contrast. Aortic Valve * Trileaflet aortic valve. * Mildly sclerotic aortic valve leaflets. * No aortic regurgitation. * No aortic stenosis. Mitral Valve * Mildly thickened mitral valve leaflets. * Trace mitral regurgitation. * No mitral stenosis. Tricuspid Valve * Normal tricuspid valve structure. * Mild tricuspid regurgitation. * Borderline mild pulmonary hypertension. * Estimated RVSP is 36 mmHg. * Estimated RA pressure is 5 mmHg. Pulmonic Valve * Normal pulmonic valve structure. * Mild pulmonic regurgitation. Aorta * Normally sized aortic root. Pericardium * There is a trivial pericardial effusion present. IVC * Normal IVC dimensions and inspiratory collapse. Device lead * Device listed in history, but leads not well visualized. History Hypertension Diabetes Hypercholesteremia Family History of CAD History of CAD/PTCA Pacer/ICD Implant 01/28/16 a Previous Echo was performed. Measurements: BP: 95/ 57 2D Normal Values RVIDd: 2.70 cm <2.7 cm IVSd: .80 cm 0.6 - 1.0 cm LVIDd: 4.40 cm 3.7 - 5.6 cm LVPWd: 1.00 cm 0.6 - 1.1 cm LVIDs: 2.20 cm 1.5 - 3.6 cm AO: 2.70 cm < 4.0 cm LA: 3.50 cm 2.0 - 4.0cm %FS: 50.00 cm >25 % LA volume: 50 Mitral Valve Peak E:.77 m/sec Peak A:.89 m/sec E/A Ratio:0.9 Peak E' Lat Umair:5.07 cm/s Peak E' Med Umair:4.87 cm/s E/E' Lat Ratio:15.2 E/E' Med Ratio:15.8 Tricuspid Valve TV Regurg Peak Grad: 31.00mmHg TV Regurg Peak Umair: 2.79m/sec Updated by Sagar Gomez DO, WILLIAM, EMILEE PARRA on 10/25/2016 1:33:07 PM electronically signed on 10/25/2016 1:33:58 PM with status of Final Wall Motion Richter: 1=Normal, 2=Hypokinesis, 3=Akinesis, 4=Dyskinesis, 5=Aneurysmal, 6=Hyperkinetic, X=Not Visualized (Blank)=Missing
[2016-10-25 17:17] LABS: Bilirubin,Urine Negative (Negative); Blood,Urine Negative (Negative); Clarity,Urine Clear (Clear); Color,Urine Yellow (Yellow); Glucose,Urine (UA) Normal (Normal); Ketones,Urine Negative (Negative); Leukocyte Esterase,Urine Negative (Negative); Nitrite,Urine Negative (Negative); PH,Urine 5.5 pH Units (5.0-8.0); Protein,Urine Negative (Neg-Trace); Specific Gravity,Urine 1.016 (1.010-1.025); Urobilinogen,Urine Normal (Normal)
[2016-10-25] MEDS: *HR* Heparin 5,000 UNIT/ML VIAL SQ SCH (18:17)
--- NOTE | 2016-10-25 20:00 | Electrocardiograph Report ---
[facility] Test Date: 2016-10-24 Pat Name: Michael Crowder Department: 103 Room: 2A23 Gender: M Pay Station Collector: CARLYLE : 1930 Requested By: Sudhakar Yan Order Number: [id number] Reading MD: Sagar Gomez DO Measurements Intervals [place] Rate: 81 P: 62 MS: 262 QRS: -55 QRSD: 119 T: 28 QT: 347 QTc: 384 Interpretive Statements SINUS RHYTHM WITH FIRST DEGREE AV BLOCK MARKED LEFT AXIS DEVIATION INTRAVENTRICULAR CONDUCTION DELAY Electronically Signed On 10-25-16 19:59:54 EST by Sagar Gomez DO
[2016-10-25] MEDS: Finasteride 5 MG TABLET PO SCH (20:13)
[2016-10-26 05:13] LABS: Calcium 8.6 mg/dL (8.6-10.8); Potassium 4.5 mEq/L (3.5-4.5)
[2016-10-26] MEDS: Albuterol 2.5 MG/3 ML NEBULIZER IH SCH ×2 (05:58→10:21)
[2016-10-26] MEDS: *HR* Heparin 5,000 UNIT/ML VIAL SQ SCH ×2 (06:10→19:23)
[2016-10-26] MEDS: Insulin LISPRO 300 UNITS/3 ML VIAL SQ SCH ×4 (08:00→20:46)
[2016-10-26] MEDS: ALPRAZolam 0.25 MG TABLET PO SCH ×2 (08:38→20:44)
[2016-10-26] MEDS: amLODIPine 5 MG TABLET PO SCH (08:38)
[2016-10-26] MEDS: Furosemide 20 MG/2 ML VIAL IVP SCH (08:39)
[2016-10-26] MEDS: Benzonatate 100 MG CAPSULE PO SCH ×3 (08:39→20:43)
[2016-10-26] MEDS: Gabapentin 300 MG CAPSULE PO SCH ×2 (08:39→20:43)
[2016-10-26] MEDS: Famotidine 20 MG TABLET PO SCH ×2 (08:39→20:44)
[2016-10-26] MEDS ORDERED: Levofloxacin 750 MG/150 ML 750 MG/150 ML BAG IVPB SCH (09:00)
--- NOTE | 2016-10-26 09:08 | Internal Med Progress Note ---
Date of Encounter: 10/26/16 Time of Encounter: 09:06 - Assessment and plan (1) Acute respiratory failure with hypoxia Current Visit: Yes Status: Acute Assessment and plan: Chest x-ray is suggestive of mild cardiomegaly and pulmonary vascular congestion along with bibasilar infiltrates. Likely secondary to pneumonia. Improving. Continue IV antibiotics and hold IV Lasix. Echocardiogram shows preserved ejection fraction, mild left ventricular diastolic dysfunction, mild pulmonary and tricuspid regurgitation along with mild pulmonary hypertension. Continue supplemental oxygen, improving oxygen requirements. May need home oxygen evaluation prior to discharge. (2) Community acquired pneumonia Current Visit: Yes Status: Acute Assessment and plan: Plan as above. Blood cultures remain negative so far. Urine Legionella antigen negative. Influenza nasal swabs negative. Physical and occupational therapy evaluation pending. (3) Essential hypertension Current Visit: Yes Status: Chronic (4) BPH (benign prostatic hyperplasia) Current Visit: Yes Status: Chronic Qualifiers: Prostatic enlargement morphology: unspecified morphology Lower urinary tract symptom presence: presence of symptoms unspecified Qualified Code(s): N40.0 - Benign prostatic hyperplasia without lower urinary tract symptoms (5) Diabetes mellitus Current Visit: Yes Status: Chronic Assessment and plan: Hemoglobin A1c noted to be 8.2%. Continue Accu-Chek blood glucose monitoring with sliding scale insulin. Diabetic diet. Qualifiers: Diabetes mellitus type: type 2 Diabetes mellitus complication status: with kidney complications Diabetes mellitus complication detail: with chronic kidney disease Diabetes mellitus intermediate school teacher insulin use: without assisted use Chronic kidney disease stage: stage 3 (moderate) Qualified Code(s): E11.22 - Type 2 diabetes mellitus with diabetic chronic kidney disease; N18.3 - Chronic kidney disease, stage 3 (moderate) (6) CKD (chronic kidney disease) Current Visit: Yes Status: Chronic Assessment and plan: Serum creatinine noted to be between 1.3 and 1.4, which is his baseline. Discontinue diuretics today. Continue to monitor, dose antibiotics according to current GFR. Qualifiers: Chronic kidney disease stage: stage 3 (moderate) Qualified Code(s): N18.3 - Chronic kidney disease, stage 3 (moderate) - Subjective Interval history: Appears much better today. Able to sit up at the age of bed. Improved cough and shortness of breath. No chest pain, orthopnea or leg swelling. No fever or chills. Plan of care explained to the patient and at bedside. - Constitutional Vitals: Temp Pulse Resp BP Pulse Ox 98.2 F 86 18 120/71 96 10/26/16 07:29 10/26/16 07:29 10/26/16 07:29 10/26/16 07:29 10/26/16 07:29 General appearance: Present: A&O X 3, answers questions appropriately - Respiratory Respiratory exam: Present: CTAB. Absent: accessory muscle use, rales, rhonchi, wheezes - Cardiovascular Cardiovascular exam: Present: RRR, +S1, +S2. Absent: diastolic murmur, gallop, rubs, systolic murmur - GI/Abdominal GI/Abdominal exam: Present: normal bowel sounds, soft, no peritoneal signs. Absent: distended, tenderness - Extremities Exam Extremities exam: Present: full ROM, warm, radial pulses palpable and symetrical. Absent: calf tenderness, cyanotic, pedal edema - Neurological Exam Neurological exam: Present: CN II-XII intact, oriented X3, no focal deficits. Absent: pronater drift, facial droop, speech deficit - Skin Skin exam: Present: dry, intact Internal Medicine: Result - Labs CBC & Chem 7: 10/24/16 13:02 10/26/16 04:16 Labs: BMP 10/26/16 04:16 Sodium 140 Potassium 4.5 Chloride 105 Carbon Dioxide 28 BUN 33 H Creatinine 1.41 H Glucose 117 H Calcium 8.6 Urine 10/25/16 Range/Units 17:05 Urine Color Yellow (Yellow) Urine Clarity Clear (Clear) Urine pH 5.5 (5.0-8.0) pH Units Ur Specific [place] 1.016 (1.010-1.025) Urine Protein Negative (Neg-Trace) mg/dL Urine Glucose (UA) Normal (Normal) mg/dL - ABG Interpretation ABG results: ABG ABG pH 7.40 pH Units (7.32-7.45) 10/24/16 12:51 ABG pCO2 44 mmHg (35-45) 10/24/16 12:51 ABG pO2 66 mmHg (85-104) L 10/24/16 12:51 ABG O2 Saturation 93 % (95-98) L 10/24/16 12:51 Consult Discharge Plan - Plan Referrals: Erica Bennett MD [Primary Care Provider] -
[2016-10-26] MEDS ORDERED: Albuterol 2.5 MG/3 ML NEBULIZER IH PRN (12:47)
[2016-10-26] MEDS: Finasteride 5 MG TABLET PO SCH (20:43)
[2016-10-27 06:03] LABS: BUN/Creatinine Ratio 26 (6-26); Blood Urea Nitrogen 34 mg/dL (8-26); Calcium 8.4 mg/dL (8.6-10.8); Carbon Dioxide 30 mEq/L (19-29); Chloride 104 mEq/L (98-109); Glucose 126 mg/dL (70-99); Osmolality,Calculated 299 (280-300); Potassium 4.3 mEq/L (3.5-4.5); Sodium 140 mEq/L (136-145); eGFR For African Americans > 60 (> 60); eGFR For Non-African Americans 52 (> 60)
[2016-10-27] MEDS: Insulin LISPRO 300 UNITS/3 ML VIAL SQ SCH ×4 (07:43→22:48)
[2016-10-27] MEDS: ALPRAZolam 0.25 MG TABLET PO SCH ×2 (09:36→23:12)
[2016-10-27] MEDS: Gabapentin 300 MG CAPSULE PO SCH ×2 (09:36→23:12)
[2016-10-27] MEDS: *HR* Heparin 5,000 UNIT/ML VIAL SQ SCH ×2 (09:36→23:12)
[2016-10-27] MEDS: Benzonatate 100 MG CAPSULE PO SCH ×3 (09:36→23:12)
[2016-10-27] MEDS: Famotidine 20 MG TABLET PO SCH ×2 (09:36→23:13)
[2016-10-27] MEDS: amLODIPine 5 MG TABLET PO SCH (09:36)
--- NOTE | 2016-10-27 16:37 | Internal Med Progress Note ---
Date of Encounter: 10/27/16 Time of Encounter: 09:55 - Assessment and plan (1) Acute respiratory failure with hypoxia Current Visit: Yes Status: Acute Assessment and plan: Chest x-ray is suggestive of mild cardiomegaly and pulmonary vascular congestion along with bibasilar infiltrates. Likely secondary to pneumonia. Improving. Continue IV antibiotics Echocardiogram shows preserved ejection fraction, mild left ventricular diastolic dysfunction, mild pulmonary and tricuspid regurgitation along with mild pulmonary hypertension. Continue supplemental oxygen, improving oxygen requirements. Will requalify for home O2 a.m (2) Community acquired pneumonia Current Visit: Yes Status: Acute Assessment and plan: Plan as above. Blood cultures remain negative so far. Urine Legionella antigen negative. Influenza nasal swabs negative. Physical and occupational therapy evaluation pending. (3) BPH (benign prostatic hyperplasia) Current Visit: Yes Status: Chronic Qualifiers: Prostatic enlargement morphology: unspecified morphology Lower urinary tract symptom presence: presence of symptoms unspecified Qualified Code(s): N40.0 - Benign prostatic hyperplasia without lower urinary tract symptoms (4) CKD (chronic kidney disease) Current Visit: Yes Status: Chronic Assessment and plan: Serum creatinine noted to be between 1.3 and 1.4, which is his baseline. Continue to monitor, dose antibiotics according to current GFR. Qualifiers: Chronic kidney disease stage: stage 3 (moderate) Qualified Code(s): N18.3 - Chronic kidney disease, stage 3 (moderate) (5) Diabetes mellitus Current Visit: Yes Status: Chronic Assessment and plan: Hemoglobin A1c noted to be 8.2%. Continue Accu-Chek blood glucose monitoring with sliding scale insulin. Diabetic diet. Qualifiers: Diabetes mellitus type: type 2 Diabetes mellitus complication status: with kidney complications Diabetes mellitus complication detail: with chronic kidney disease Diabetes mellitus correction insulin use: without manager intermediate use Chronic kidney disease stage: stage 3 (moderate) Qualified Code(s): E11.22 - Type 2 diabetes mellitus with diabetic chronic kidney disease; N18.3 - Chronic kidney disease, stage 3 (moderate) (6) Essential hypertension Current Visit: Yes Status: Chronic Assessment and plan: BP running low Diuretics have been held Decrease norvasc to 2.5mg daily, will titrate up prn - Subjective Interval history: 86 Y/O M being managed for acute hypoxic respiratory failure secondary to bibasilar pneumonia, Pulmonary HTN and LVDD. BIBI on CKD ihc has resolved, as creatinine is back to abseline Blood culture, Urine legionella, Strep antigen are negative till date patient is awaiting PT review, and hoe O2 qualification Today he complained of dizziness upon ambulation. His O2 sat hovers around 90-92 % on room air Will keep patient for one more night and requalify him a.m BP is running low, will decrease amlodipine and will monitor - Constitutional Vitals: Temp Pulse Resp BP Pulse Ox 97.7 F 58 18 109/59 96 10/27/16 16:18 10/27/16 16:18 10/27/16 16:18 10/27/16 16:18 10/27/16 16:18 General appearance: Present: A&O X 3, pleasant, no acute distress, answers questions appropriately - Head Head exam: Present: atraumatic, normocephalic - Eye Eye exam: Present: PERRL, conjuntiva pink, sclera anicteric Pupils: Present: PERRL - Neck Neck exam general surgery: Present: supple, trachea midline. Absent: lymphadenopathy - Respiratory Respiratory exam: Present: rhonchi - Cardiovascular Cardiovascular exam: Present: RRR, +S1, +S2. Absent: diastolic murmur, gallop, rubs, systolic murmur - GI/Abdominal GI/Abdominal exam: Present: normal bowel sounds, soft, no peritoneal signs. Absent: distended, tenderness - Extremities Exam Extremities exam: Present: pedal edema - Neurological Exam Neurological exam: Present: CN II-XII intact, oriented X3, no focal deficits. Absent: pronater drift, facial droop, speech deficit - Skin Skin exam: Present: dry Internal Medicine: Result - Labs CBC & Chem 7: 10/24/16 13:02 10/27/16 05:30 Labs: BMP 10/27/16 05:30 Sodium 140 Potassium 4.3 Chloride 104 Carbon Dioxide 30 H BUN 34 H Creatinine 1.31 H Glucose 126 H Calcium 8.4 L - ABG Interpretation ABG results: ABG ABG pH 7.40 pH Units (7.32-7.45) 10/24/16 12:51 ABG pCO2 44 mmHg (35-45) 10/24/16 12:51 ABG pO2 66 mmHg (85-104) L 10/24/16 12:51 ABG O2 Saturation 93 % (95-98) L 10/24/16 12:51 Consult Discharge Plan - Plan Referrals: Erica Bennett MD [Primary Care Provider] - 10/30/16 11:15 am (Please follow up as schedule...)
[2016-10-27] MEDS: Finasteride 5 MG TABLET PO SCH (23:13)
[2016-10-28 05:43] LABS: Basophils % 0.3 %; Eosinophils # 0.1 K/mcL (0.0-0.6); Eosinophils % 3.9 %; Immature Granulocytes % 0.6 % (0-4); Lymphocytes # 1.1 K/mcL (0.6-4.6); Lymphocytes % 32.4 %; Mean Corpuscular HGB Conc 32.6 g/dL (31.6-35.5); Mean Platelet Volume 9.4 fL (9.4-12.4); Monocytes # 0.3 K/mcL (0.0-1.3); Monocytes % 9.7 %; Neutrophils # 1.8 K/mcL (1.6-8.9); Platelet Count 151 K/mcL (140-400); Red Blood Count 3.47 M/mcL (4.19-5.50); Segmented Neutrophils % 53.1 %
[2016-10-28 05:45] LABS: Hemoglobin 11.1 g/dL (12.9-16.9)
[2016-10-28 05:57] LABS: BUN/Creatinine Ratio 27 (6-26); Blood Urea Nitrogen 30 mg/dL (8-26); Calcium 8.5 mg/dL (8.6-10.8); Carbon Dioxide 27 mEq/L (19-29); Chloride 107 mEq/L (98-109); Glucose 101 mg/dL (70-99); Osmolality,Calculated 300 (280-300); Potassium 4.2 mEq/L (3.5-4.5); Sodium 142 mEq/L (136-145); eGFR For African Americans > 60 (> 60); eGFR For Non-African Americans > 60 (> 60)
[2016-10-28 06:21] LABS: Platelet Estimate Normal (Normal)
[2016-10-28] MEDS ORDERED: 0.9 % Sodium Chloride 500 ML IVC ONE (08:01)
[2016-10-28] MEDS: *HR* Heparin 5,000 UNIT/ML VIAL SQ SCH (08:07)
[2016-10-28] MEDS: Benzonatate 100 MG CAPSULE PO SCH (08:08)
[2016-10-28] MEDS: ALPRAZolam 0.25 MG TABLET PO SCH (08:08)
[2016-10-28] MEDS: Insulin LISPRO 300 UNITS/3 ML VIAL SQ SCH ×2 (08:08→11:30)
[2016-10-28] MEDS: Gabapentin 300 MG CAPSULE PO SCH (08:09)
[2016-10-28] MEDS: Famotidine 20 MG TABLET PO SCH (08:09)
[2016-10-28] MEDS ORDERED: amLODIPine 5 MG TABLET PO SCH (09:00)
[2016-10-28] MEDS ORDERED: levoFLOXacin 750 MG TABLET PO SCH (09:00)
[2016-10-28 10:41] VITALS: BP 107/67
--- NOTE | 2016-10-28 13:13 | Discharge Summary ---
Date of Encounter: 10/28/16 Time of Encounter: 09:25 - Discharge Diagnosis (1) Acute respiratory failure with hypoxia Priority: Primary Status: Resolved (2) Community acquired pneumonia Priority: Primary Status: Acute (3) BPH (benign prostatic hyperplasia) Priority: Secondary Status: Chronic Qualifiers: Prostatic enlargement morphology: unspecified morphology Lower urinary tract symptom presence: presence of symptoms unspecified Qualified Code(s): N40.0 - Benign prostatic hyperplasia without lower urinary tract symptoms (4) CKD (chronic kidney disease) Priority: Secondary Status: Chronic Qualifiers: Chronic kidney disease stage: stage 3 (moderate) Qualified Code(s): N18.3 - Chronic kidney disease, stage 3 (moderate) (5) Diabetes mellitus Priority: Secondary Status: Chronic Qualifiers: Diabetes mellitus type: type 2 Diabetes mellitus complication status: with kidney complications Diabetes mellitus complication detail: with chronic kidney disease Diabetes mellitus rodent 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 insulin use: without nursing home use Chronic kidney disease stage: stage 3 (moderate) Qualified Code(s): E11.22 - Type 2 diabetes mellitus with diabetic chronic kidney disease; N18.3 - Chronic kidney disease, stage 3 (moderate) (6) Essential hypertension Priority: Secondary Status: Chronic - Discharge Medications Prescriptions: GuaiFENesin/Codeine [ROBITUSSIN w/CODEINE] 10 ml PO Q6HR PRN #200 ml PRN Reason: Cough Levofloxacin 750 mg PO DAILY #4 tablet Home Medications: Alprazolam [Xanax 0.25 MG Tablet] 0.5 mg PO BID 02/27/16 [History] Atorvastatin [Lipitor] 10 mg PO QPM 02/27/16 [History] Clopidogrel [Plavix] 75 mg PO DAILY 02/27/16 [History] Cyanocobalamin (B-12) [Vitamin B12] 1,000 mcg IM QMONTH 02/27/16 [History] Gabapentin [Neurontin] 600 mg PO BID 02/27/16 [History] Glimepiride [Amaryl] 4 mg PO DAILY 02/27/16 [History] Metformin [Glucophage] 1,000 mg PO BID 02/27/16 [History] Pramipexole [Mirapex] 0.25 mg PO DAILY 02/27/16 [History] Ranitidine HCl [Zantac 75] 150 mg PO BID 02/27/16 [History] Tamsulosin [Flomax] 0.4 mg PO BID 02/27/16 [History] Finasteride [Proscar] 5 mg PO HS 10/24/16 [History] GuaiFENesin/Codeine [ROBITUSSIN w/CODEINE] 10 ml PO Q6HR PRN #200 ml 10/28/16 [ Rx] Levofloxacin 750 mg PO DAILY #4 tablet 10/28/16 [Rx] Allergies/Adverse Reactions: Allergies Sulfa (Sulfonamide Antibiotics) Allergy (Verified 02/27/16 07:55) Rash carbidopa Adverse Reaction (Verified 02/27/16 07:55) Gastrointestinal Upset clonazepam Adverse Reaction (Verified 02/27/16 07:55) Gastrointestinal Upset clotrimazole Adverse Reaction (Verified 02/27/16 07:55) Gastrointestinal Upset fexofenadine [From Brandy] Adverse Reaction (Verified 02/27/16 07:55) Gastrointestinal Upset guaifenesin [From Robitussin] Adverse Reaction (Verified 02/27/16 07:55) Gastrointestinal Upset hydrochlorothiazide Adverse Reaction (Verified 02/27/16 07:55) Rash levodopa [From Sinemet] Adverse Reaction (Verified 02/27/16 07:55) Gastrointestinal Upset pioglitazone [From Actos] Adverse Reaction (Verified 02/27/16 07:55) Gastrointestinal Upset ropinirole [From Requip] Adverse Reaction (Verified 02/27/16 07:55) Gastrointestinal Upset sertraline [From Zoloft] Adverse Reaction (Verified 02/27/16 07:55) Drowsy tamsulosin [From Flomax] Adverse Reaction (Verified 02/27/16 07:55) Gastrointestinal Upset Date of admission: 10/24/16 15:52 Primary care physician: Erica Meyer Discharging clinician: Luis Ferro Anticipated date of discharge: 10/28/16 - Patient Status Disposition: Home, Self-Care Condition: Fair Functional capacity at discharge: independent ambulation Overall status at discharge: patient is progressing back to baseline - Discharge Instructions Instructions: Levofloxacin (By mouth), Diabetes Mellitus Type 2 in Adults (DC) , Pneumonia (DC) Follow Up With: Erica Bennett MD [Primary Care Provider] - 10/30/16 11:15 am (Please follow up as schedule...) - Diet and Activity Activity: resume usual activities as tolerated Diet: advance to your usual diet Interval History: See below Hospital course: Mr. Crowder is a 86 year old male with PMH of HTN BPH, CKD II, DM Patient was admitted and managed for acute hypoxic respiratory failure secondary to bibasilar pneumonia, Pulmonary HTN and LVDD. His hospital stay was complicated by BIBI on CKD> He has since been weaned off oxygen, his renal function is back to baseline. He is seen at bedside with spouse He has no new complains , wanted cough syrup He has remained stable and afebrile for >48 hours and is stable to be discharged home with family. Blood cultures, Urine legonella and streptococcus antigen and respiratory panel has been negative He was walked with PT and did not require home O2 Significantly, he had low normal blood pressures in-patient and his BP meds were held. I have discussed with his about the goal blood pressure for him and the complications of hypotension. She will check his BP at home regularly He is discharged to compete 7 days of antibiotics at home His other chronic medical conditions remain stable He has received pneumococcal and Influenza vaccine Follow up with PCP - Time Spent with Patient Total time spent providing and/or coordinating discharge services: Less than 30 minutes - Constitutional Vitals: Temp Pulse Resp BP Pulse Ox 97.4 F L 60 16 107/67 95 10/28/16 10:33 10/28/16 10:33 10/28/16 10:33 10/28/16 10:33 10/28/16 10:33 General appearance: Present: A&O X 3, pleasant, no acute distress, answers questions appropriately - Head Head exam: Present: atraumatic, normocephalic - Eye Eye exam: Present: PERRL, conjuntiva pink, sclera anicteric Pupils: Present: PERRL - Neck Neck exam general surgery: Present: supple, trachea midline. Absent: lymphadenopathy - Respiratory Respiratory exam: Present: CTAB. Absent: accessory muscle use, rales, rhonchi, wheezes - Cardiovascular Cardiovascular exam: Present: RRR, +S1, +S2, systolic murmur. Absent: diastolic murmur, gallop, rubs - GI/Abdominal GI/Abdominal exam: Present: normal bowel sounds, soft, no peritoneal signs. Absent: distended, tenderness - Extremities Exam Extremities exam: Present: pedal edema (Trace), warm, radial pulses palpable and symetrical. Absent: calf tenderness, cyanotic - Neurological Exam Neurological exam: Present: CN II-XII intact, oriented X3, no focal deficits. Absent: pronater drift, facial droop, speech deficit - Skin Skin exam: Present: dry
[2016-10-29 07:41] LABS: Mycoplasma pneumoniae IgG 0.22 U/L (<=0.09)
== END 2016-10-28 14:20 | disposition home or self-care (01) | DRG 193 ==
LOC: 2ANU 12:21 → EMEROO 12:21 → SUATTDRO 15:52 → 2ANU 16:08
PROVIDERS: ADMIT Internal Medicine; ATTEND Internal Medicine

== ENCOUNTER 2016-11-20 16:08 | Inpatient (IN) ==
--- NOTE | 2016-11-20 16:36 | Emergency Department Note ---
Disposition Clinical Impression: Hospital-acquired pneumonia Dyspnea Qualifiers: Dyspnea type: other forms of dyspnea Qualified Code(s): R06.09 - Other forms of dyspnea Disposition: Admitted As Inpatient Condition: Fair Referrals: NO,PCP [Non-Partnered Physician] - Forms: ED Satisfaction Letter SOB HPI - General Chief Complaint: ED Shortness of Breath/Dyspnea Stated Complaint: pneumonia, ANDREY Time Seen by Provider: 11/20/16 16:18 Source: patient Limitations: no limitations Nursing Notes Reviewed: Yes Vital Signs Reviewed: Yes - History of Present Illness Patient is a 86-year-old male who approximately 1 month ago was negative for community acquired pneumonia. He was treated with IV and about X for several days discharged home and was doing well up until about a week ago. Last weekend he states had increased cough fevers chills he saw his PCP on Wednesday they ordered an outpatient CT scan that showed a right lower lobe pneumonia he was placed on Levaquin. He continues taking antibiotics and inhalers and prednisone and today has just felt increasingly worse. He's short of breath, weak states he has no energy is unable to walk without assistance Pt Subjective Complaint: shortness of breath Severity: moderate Consistency/Duration: gradually worsening Improves with: oxygen, rest, upright position Worsens with: lying flat, exertion Known history of: recurrent pneumonia Associated symptoms: Reports: fever, cough, sputum production Treatment prior to arrival: bronchodilator Cough present: Yes Cough Description: Involuntary Cough Frequency: Intermittent Sputum production: Yes Sputum Amount: Scant - Related Data Home Medications Medication Instructions Recorded Confirmed Alprazolam [Xanax 0.25 MG Tablet] 0.5 mg PO BID 02/27/16 10/24/16 Atorvastatin [Lipitor] 10 mg PO QPM 02/27/16 10/24/16 Clopidogrel [Plavix] 75 mg PO DAILY 02/27/16 10/24/16 Cyanocobalamin (B-12) [Vitamin B12] 1,000 mcg IM QMONTH 02/27/16 10/24/16 Gabapentin [Neurontin] 600 mg PO BID 02/27/16 10/24/16 Glimepiride [Amaryl] 4 mg PO DAILY 02/27/16 10/24/16 Metformin [Glucophage] 1,000 mg PO BID 02/27/16 10/24/16 Pramipexole [Mirapex] 0.25 mg PO DAILY 02/27/16 10/24/16 Ranitidine HCl [Zantac 75] 150 mg PO BID 02/27/16 10/24/16 Tamsulosin [Flomax] 0.4 mg PO BID 02/27/16 10/24/16 Finasteride [Proscar] 5 mg PO HS 10/24/16 10/24/16 Allergies Allergy/AdvReac Type Severity Reaction Status Date / Time Sulfa (Sulfonamide Allergy Rash Verified 02/27/16 07:55 Antibiotics) carbidopa AdvReac Gastrointestinal Verified 02/27/16 07:55 Upset clonazepam AdvReac Gastrointestinal Verified 02/27/16 07:55 Upset clotrimazole AdvReac Gastrointestinal Verified 02/27/16 07:55 Upset fexofenadine [From Brandy] AdvReac Gastrointestinal Verified 02/27/16 07:55 Upset guaifenesin [From Robitussin] AdvReac Gastrointestinal Verified 02/27/16 07:55 Upset hydrochlorothiazide AdvReac Rash Verified 02/27/16 07:55 levodopa [From Sinemet] AdvReac Gastrointestinal Verified 02/27/16 07:55 Upset pioglitazone [From Actos] AdvReac Gastrointestinal Verified 02/27/16 07:55 Upset ropinirole [From Requip] AdvReac Gastrointestinal Verified 02/27/16 07:55 Upset sertraline [From Zoloft] AdvReac Drowsy Verified 02/27/16 07:55 tamsulosin [From Flomax] AdvReac Gastrointestinal Verified 02/27/16 07:55 Upset All systems ED: reviewed and negative except as stated. Constitutional: Reports: fever, chills, weakness Respiratory: Reports: dyspnea, wheezes Gastrointestinal: Denies: abdominal pain, nausea, vomiting Past Medical History - Past Medical History Source: patient, old records reviewed, obtained from family (), nursing notes reviewed Medical history: Reports: diabetes, glaucoma, hyperlipidemia, hypertension, renal disease, valvular heart disease Surgical history: Reports: cholecystectomy Psychiatric history: Reports: no psych history - Social History Smoking Status: Never smoker Smokeless Tobacco Status: No Alcohol use: Reports: none Drug use: Reports: none Physical Exam - General Limitations: no limitations General appearance: alert, other (Patient looks ill) - Head Head exam: atraumatic, normocephalic, normal inspection - Eye Eye exam: Present: normal appearance, PERRL, EOMI - Expanded Eye Exam Pupils: Left: reactive - ENT ENT exam: normal exam, normal oropharynx, mucous membranes moist - Expanded ENT Exam External ear exam: Present: normal external inspection Mouth exam: Present: normal external inspection Teeth exam: Present: normal inspection Throat exam: Present: normal inspection - Neck Neck exam: Present: normal inspection, full ROM, trachea midline - Chest Chest inspection: Present: normal inspection, symmetric chest wall rise - Respiratory Respiratory exam: Present: other (Patient has bilateral scattered wheezes and rhonchi with mild tachypnea and rhonchorous cough) - Cardiovascular Cardiovascular exam: Present: normal rhythm, tachycardia - Abdominal Exam Abdominal exam: Present: soft, Non-Tender. Absent: tenderness, distention, guarding, rebound, rigidity - Extremities Exam Extremities exam: Present: normal inspection, full ROM. Absent: tenderness, pedal edema - Expanded Upper Extremity Exam Shoulder exam: Present: normal inspection, full ROM Arm exam: Present: normal inspection, full ROM Elbow exam: Present: normal inspection, full ROM Forearm/Wrist exam: Present: normal inspection, full ROM Hand exam: Present: normal inspection, full ROM Vascular exam: Normal: capillary refill, radial pulse - Expanded Lower Extremity Exam Hip/Pelvis exam: Present: normal inspection, full ROM Upper leg exam: Present: normal inspection, full ROM Knee exam: Present: normal inspection, full ROM Lower leg exam: Present: normal inspection, full ROM Ankle exam: Present: normal inspection, full ROM Foot/toe exam: Present: normal inspection, full ROM Neurovascular/Tendon exam: Absent: motor deficit, sensory deficit, tendon deficit - Back Exam Back exam: Present: normal inspection, full ROM. Absent: tenderness - Neurological Exam Neurological exam: Present: alert, oriented X3 - Expanded Neurological Exam Patient oriented to: Present: person, place, time Coma Scale Eye Opening: Spontaneous Coma Scale Motor Response: Obeys Commands Coma Scale Verbal Response: Oriented Coma Scale Total: 15 - Psychiatric Psychiatric exam: Present: normal affect, normal mood - Skin Skin exam: Present: warm, dry, intact, normal color Course Vital Signs Temperature 97.3 F L 11/20/16 16:15 Pulse Rate 103 11/20/16 16:15 Respiratory Rate 18 11/20/16 16:15 Blood Pressure 149/61 11/20/16 16:15 O2 Sat by Pulse Oximetry 94 L 11/20/16 16:15 Temperature 97.3 F L 11/20/16 16:15 Pulse Rate 103 11/20/16 16:15 Respiratory Rate 18 11/20/16 17:07 Blood Pressure 149/61 11/20/16 16:15 O2 Sat by Pulse Oximetry 95 11/20/16 17:07 Oxygen Delivery Oxygen Delivery Room Air Shortness of Breath/Dyspnea - Differential Diagnosis Likely: acute exacerbation of chronic obstructive airways disease, congestive heart failure, pneumonia, asthma with exacerbation, pulmonary embolism, pneumothorax, arrhythmia - Medical Records Medical records reviewed: Yes I reviewed the patient's medical records. - Lab Data Lab results reviewed: Yes I reviewed the patient's lab results. Result diagrams: 11/20/16 17:07 11/20/16 17:07 Lab Results 11/20/16 11/20/16 11/20/16 Range/Units 17:07 17:07 17:07 WBC 5.6 (4.3-11.1) K/mcL RBC 4.04 L (4.19-5.50) M/mcL Hgb 13.0 (12.9-16.9) g/dL Hct 38.3 (37.5-50.1) % MCV 94.8 (83.0-100.0) fL MCH 32.2 (28.0-33.3) pg MCHC 33.9 (31.6-35.5) g/dL RDW 13.1 (11.5-14.5) % Plt Count 151 (140-400) K/mcL MPV 9.6 (9.4-12.4) fL Immature Gran % 1.1 (0-4) % Seg Neutrophils % 81.7 % Lymphocytes % 10.7 % Monocytes % 6.3 % Eosinophils % 0.0 % Basophils % 0.2 % Neutrophils # 4.6 (1.6-8.9) K/mcL Lymphocytes # 0.6 (0.6-4.6) K/mcL Monocytes # 0.4 (0.0-1.3) K/mcL Eosinophils # 0.0 (0.0-0.6) K/mcL Basophils # 0.0 (0.0-0.2) K/mcL PT 11.9 (9.4-12.1) Seconds INR 1.1 APTT 24.9 L (26.0-36.0) Seconds Sodium 139 (136-145) mEq/L Potassium 4.0 (3.5-4.5) mEq/L Chloride 101 (98-109) mEq/L Carbon Dioxide 23 (19-29) mEq/L BUN 36 H (8-26) mg/dL Creatinine 1.43 H (0.72-1.25) mg/dL Est GFR ( Amer) 57 L (> 60) Est GFR (Non-Af Amer) 47 L (> 60) BUN/Creatinine Ratio 25 (6-26) Glucose 392 H (70-99) mg/dL Calculated Osmolality 313 H (280-300) Calcium 9.5 (8.6-10.8) mg/dL Troponin I (0-0.03) ng/mL B-Natriuretic Peptide (0-100) pg/mL 11/20/16 11/20/16 Range/Units 17:07 17:07 WBC (4.3-11.1) K/mcL RBC (4.19-5.50) M/mcL Hgb (12.9-16.9) g/dL Hct (37.5-50.1) % MCV (83.0-100.0) fL MCH (28.0-33.3) pg MCHC (31.6-35.5) g/dL RDW (11.5-14.5) % Plt Count (140-400) K/mcL MPV (9.4-12.4) fL Immature Gran % (0-4) % Seg Neutrophils % % Lymphocytes % % Monocytes % % Eosinophils % % Basophils % % Neutrophils # (1.6-8.9) K/mcL Lymphocytes # (0.6-4.6) K/mcL Monocytes # (0.0-1.3) K/mcL Eosinophils # (0.0-0.6) K/mcL Basophils # (0.0-0.2) K/mcL PT (9.4-12.1) Seconds INR APTT (26.0-36.0) Seconds Sodium (136-145) mEq/L Potassium (3.5-4.5) mEq/L Chloride (98-109) mEq/L Carbon Dioxide (19-29) mEq/L BUN (8-26) mg/dL Creatinine (0.72-1.25) mg/dL Est GFR ( Amer) (> 60) Est GFR (Non-Af Amer) (> 60) BUN/Creatinine Ratio (6-26) Glucose (70-99) mg/dL Calculated Osmolality (280-300) Calcium (8.6-10.8) mg/dL Troponin I 0.01 (0-0.03) ng/mL B-Natriuretic Peptide 399 H (0-100) pg/mL - Radiology Data Radiology results reviewed: Yes I reviewed the patient's radiology results.
[2016-11-20] MEDS ORDERED: Piperacillin/Tazobactam 3.375 GM in D5% in Water (Mini-Bag+) 100 ML IVPB ONE (16:40)
[2016-11-20] MEDS ORDERED: Ipratropium/Albuterol Neb 3 ML IH ONE (16:41)
[2016-11-20 17:27] LABS: Basophils % 0.2 %; Hematocrit 38.3 % (37.5-50.1); Immature Granulocytes % 1.1 % (0-4); Lymphocytes # 0.6 K/mcL (0.6-4.6); Lymphocytes % 10.7 %; Mean Corpuscular HGB Conc 33.9 g/dL (31.6-35.5); Mean Corpuscular Hemoglobin 32.2 pg (28.0-33.3); Mean Corpuscular Volume 94.8 fL (83.0-100.0); Mean Platelet Volume 9.6 fL (9.4-12.4); Monocytes # 0.4 K/mcL (0.0-1.3); Monocytes % 6.3 %; Neutrophils # 4.6 K/mcL (1.6-8.9); Platelet Count 151 K/mcL (140-400); Red Blood Count 4.04 M/mcL (4.19-5.50); Red Cell Distribution Width 13.1 % (11.5-14.5); Segmented Neutrophils % 81.7 %
[2016-11-20 17:32] LABS: INR 1.1; Prothrombin Time 11.9 Seconds (9.4-12.1)
[2016-11-20 17:35] LABS: Activated Partial Thrombo Time 24.9 Seconds (26.0-36.0)
[2016-11-20 17:41] LABS: Calcium 9.5 mg/dL (8.6-10.8)
[2016-11-20] MEDS ORDERED: Vancomycin 1,000 MG in D5% in Water 250 ML IVPB ONE (17:56)
[2016-11-20] MEDS ORDERED: Dextrose Gel 15 GM PO PRN ×2 (20:13)
[2016-11-20] MEDS ORDERED: *HR* Dextrose 50 % in Water (Syg) 50 ML SYRINGE IVP PRN (20:13)
[2016-11-20] MEDS ORDERED: Pantoprazole 40 MG VIAL IVP STA (20:13)
[2016-11-20] MEDS ORDERED: Acetaminophen 325 MG TABLET PO PRN (20:13)
[2016-11-20] MEDS ORDERED: methylPREDNISolone 125 MG/2 ML VIAL IVP STA (20:13)
[2016-11-20] MEDS ORDERED: D5% in Water 1,000 ML IV PRN (20:13)
[2016-11-20] MEDS ORDERED: Ondansetron 4 MG/2 ML VIAL IVP PRN (20:13)
[2016-11-20] MEDS ORDERED: *HR* OxyCODONE Immed Rel 5 MG TABLET PO PRN (20:13)
[2016-11-20] MEDS ORDERED: Naloxone 0.4 MG/ML INJ IVP PRN (20:13)
[2016-11-20] MEDS ORDERED: *HR* Morphine 2 MG/ML SYRINGE IVP PRN (20:13)
[2016-11-20] MEDS ORDERED: Albuterol 2.5 MG/3 ML NEBULIZER IH PRN (20:13)
[2016-11-20] MEDS ORDERED: Benzonatate 100 MG CAPSULE PO PRN (20:25)
--- NOTE | 2016-11-20 20:39 | Internal Med History&Physical ---
Date of Encounter: 11/20/16 Time of Encounter: 20:00 Assessment and Plan (1) Acute kidney injury superimposed on chronic kidney disease Status: Acute . (2) CKD (chronic kidney disease) stage 3, GFR 30-59 ml/min Status: Chronic . (3) Hyperosmolar non-ketotic state in patient with type 2 diabetes mellitus Status: Acute . (4) SIRS due to infectious process with acute organ dysfunction Status: Acute . (5) Sepsis Status: Acute . Qualifiers: Sepsis type: sepsis due to unspecified organism Qualified Code(s): A41.9 - Sepsis, unspecified organism (6) Diastolic CHF, acute on chronic Status: Acute . (7) Hospital-acquired pneumonia Status: Acute . (8) Diabetes mellitus Status: Chronic . 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 (10) Acute respiratory failure with hypoxia Status: Acute . (11) At risk for accident in home Status: Acute . (12) At risk for acid-base imbalance Status: Acute . (13) At risk for activity intolerance Status: Acute . (14) At risk for acute confusion Status: Acute . (15) At risk for acute ischemic cardiac event Status: Acute . (16) Hearing deficit Status: Chronic . Qualifiers: Laterality: bilateral Qualified Code(s): H91.93 - Unspecified hearing loss , bilateral Internal Medicine - H&P: HPI Chief complaint: Difficulty breathing Admitted From: Emergency Dept Plans for Post Hospital Care: Home History of present illness: Mr. Crowder is a 86 year old male with history significant for type II DM, BPH/ prostatism, dyslipidemia, hypertension, CKD III, valvular heart disease, diastolic CHF, PAD/carotid artery disease, H/O P arrhythmia-associated syncopes , RLS, osteoarthritis, osteopenia, B12 deficiency, peripheral neuropathy, GERD, hearing loss, anxiety disorder, glaucoma, nonsmoker. The patient was visited and interviewed and examined. Patient is admitted to [facility] via the emergency department with reports of difficulty in breathing. She was previously evaluated. One month earlier for community-acquired pneumonia. He was initially treated with intravenous antibody coverage had not discharge home with completion of antibiotic coverage. Patient recently well until one week prior to this presentation we began once again to have symptoms of chest congestion and shortness of air malaise. He can prior to admission he reported increasing cough. Subjective fevers chills. Saw his primary care physician on Wednesday and ordered an outpatient CT scan that showed a right lower lobe pneumonia. At that time he was placed on Levaquin plus metered-dose inhaler and a prednisone taper. However in spite of these therapies patient felt worse on the day of present ER. Generalized weakness and shortness of air accentuated with activity and with recumbency. Weakness has progressed to the point of needing assistance completing daily activities of normal living including assisted ambulation due to increasing of ALT. Reports feverishness productive cough. Denies hemoptysis. Sputum production scant but present. No wheezing. She does not acknowledge any additional sick contacts other than most recent hospital stay and treatment. He is a nonsmoker. Findings in the ED: Temperature 97.3 pulse 103 respirations 18 BP 149/61. O2 saturation 94% room air. WBC 5.6 hemoglobin 13 platelets 551,000. Differential normal. PT 11.9 INR 1.1 PTT 24.9. Metabolic panel notes BUN 36 creatinine 1.43. GFR 47. Glucose 392. Osmolality 313. Troponin 0.01 BNP 399. Portable chest x-ray demonstrates subtle patchy consolidation within the right lower lobe corresponding findings on prior CT 11/17/2016. Cardiac silhouette stable. Lungs otherwise clear without evidence of pleural effusion or pneumothorax. Osseous structures without acute abnormality. Degenerative changes bilateral shoulders noted. (11/17/16 CT chest without contrast demonstrated right lower lobe pneumonia with small right pleural effusion. Improvement in aeration of left lung base suggesting some resolving atelectasis or infiltrate. Small mediastinal lymph nodes suggesting benign reactive lymphadenopathy. Atherosclerotic vascular calcifications present. Right lower lobe with transient blood appearance to the lung parenchyma. This has developed since prior exam of 10/24/2016. Fibrosis or atelectasis in posterior costophrenic sulcus on the left improved with empiric 3 weeks earlier. No other pulmonary process seen. Cleocin prior cholecystectomy. No upper abdominal mass seen. No bony destructive process or acute osseous injury seen. Cardiac monitoring device seen in chest wall on the left. Arthritis of both shoulders evident.). EKG showed sinus rhythm. 71 bpm. First-degree AV block. Occasional ventricular premature complexes. Pattern consistent with pulmonary disease left axis deviation. Early transition in V2 progression V3 rule out age -indeterminate anterior wall injury. Fish criteria for LVH. Nonspecific ST-T wave changes. Possible biatrial abnormalities. Mild demand ischemia is a potential presentation at this time with slight increase in BNP, normal troponin and EKG suggesting mild anteroseptal/anterior wall ischemia. Patient presents at risk of further acute clinical decline and morbidity given his presenting chief complaint, findings, frailty and comorbidities. Preliminary impression suggest hospital/healthcare associated pneumonia of the right lower lobe. Presenting with acute hypoxic respiratory failure patient is acute/ subacutely ill with labored respirations. Studies suggest a tree-in-bud quality to infiltrate implying possible early mucus impaction with adjacent peribronchial inflammation. SIRS/sepsis criteria not overtly filled at the time of this admission due to this outpatient treatments. Work up and treatments will proceed comprehensively. Cumulative laboratory and radiographic data base was reviewed, considered and discussed. Pertinent ancillary medical records including ECW and PCI documentation was reviewed and considered. Given the patient's presenting concerns, past medical history, clinical findings and symptoms, he is admitted at this time will undergo further evaluation and disposition. Orders were written as per the computerized physician order caller system.......................................................................... .................... Consultative opinion and will be sought as clinical circumstances justify. Pain management needs will be addressed. Laboratory and radiographic data base will be updated as appropriate. Studies include: Cultures blood, urine and sputum, Ddimer, PT/INR,APTT, cardiac injury panel, BNP, CPK, metabolic and hematologic panel, magnesium, phosphorus, ionized calcium, thyroid panel, lipid profile, A1c, C-peptide, CRP sedimentation rate, respiratory infection profile, respiratory virus panel, blood gas, UA, lactic acid, serologies, etc. Precautions: Aspiration, fall, delirium protocol/surveillance initiated. Telemetry with continuous hemodynamic monitoring and pulse oximetry initiated. OrthoStatic vital signs. Empiric antibiotic coverage: Intravenous vancomycin, Zosyn and Levaquin pending culture data. Special studies: CT/CTA chest, chest x-ray, telemetry, EKG, bladder scan, postvoid, echocardiogram. Pulmonary toilet: Incentive spirometry, aerosol bronchodilator, mucolytic, antitussive, supplemental oxygen. Corticosteroid therapy. CPAP/BiPAP supplemental oxygen delivery. Aerosol Mucomyst therapy. Fluid and electrolyte repletion efforts will proceed. Careful attention to fluid balance and renal recovery will be emphasized. Avoidance of nephrotoxic exposure and adverse drug drug interaction in the setting of impaired renal function will be monitored closely. Acute coronary syndrome protocol/surveillance initiated. DVT and PUD prophylaxis initiated: PPI therapy, intermittent pneumatic cuffs. Subcutaneous heparin. Early ambulation will be encouraged. Immunization updates recommended. Influenza and pneumococcal vaccinations as part of ongoing preventative healthcare recommendations strongly recommended. Smoking cessation counseling briefly addressed. Patient is a nonsmoker. Advanced care directive discussion briefly addressed. Patient does not declare any healthcare restrictions at this time. Cardiovascular risk appraisal and cardiovascular risk reduction efforts will be emphasized. Physical and occupational therapy may be consulted to evaluate patient's functional capacity and progress mobility as circumstances justify. Sliding scale insulin coverage, ADA dietary restraint and schedule an as-needed basis fingerstick glucose assessments were initiated. Nutrition/diabetes education counseling may be considered as circumstances justify. Outpatient medication schedules will be reviewed, confirmed and facilitated as appropriate. Reconciliation of home treatments including adjustments, substitutions and reintroduction into the treatment regimen will address necessary maintenance therapies for chronic pre-existing medical conditions. Plan of care has been reviewed and discussed in detail with the patient. Questions addressed. Hospital course dictated by clinical findings, treatment response and potential consultative interventions. Patient is at risk for further acute clinical decline and morbidity due to his advanced age, presenting chief complaints, findings and comorbid conditions. Condition is serious. Prognosis is guarded. CODE STATUS is full. 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 BPH s/p TURP. H/O shingles of left arm.), syncope, valvular heart disease (Mitral valve prolapse with some associated mitral regurgitation.), other (Erectile dysfunction. Restless leg syndrome.) Psychiatric history: anxiety - Past Surgical History Surgical History: cholecystectomy, prostatectomy (Laser directed TURP.), other ( Colonoscopy.) - Social History Smoking Status: Never smoker Smokeless Tobacco Status: No Alcohol use: none Drug use: none Occupational status: retired Current living situation: With Family Activity Level: Independent ambulation, Mostly sedentary Recent Out of Country Travel Within the Last 8 Weeks: No Exposure or Possible Exposure to Illness During Travel: No - Family History Son Hx Family Cancer: Yes Internal Medicine - H&P: Meds Alprazolam [Xanax 0.25 MG Tablet] 0.5 mg PO BID 02/27/16 [History] Atorvastatin [Lipitor] 10 mg PO QPM 02/27/16 [History] Clopidogrel [Plavix] 75 mg PO DAILY 02/27/16 [History] Cyanocobalamin (B-12) [Vitamin B12] 1,000 mcg IM QMONTH 02/27/16 [History] Gabapentin [Neurontin] 600 mg PO BID 02/27/16 [History] Glimepiride [Amaryl] 4 mg PO DAILY 02/27/16 [History] Metformin [Glucophage] 1,000 mg PO BID 02/27/16 [History] Pramipexole [Mirapex] 0.25 mg PO DAILY 02/27/16 [History] Ranitidine HCl [Zantac 75] 150 mg PO BID 02/27/16 [History] Tamsulosin [Flomax] 0.4 mg PO BID 02/27/16 [History] Finasteride [Proscar] 5 mg PO HS 10/24/16 [History] Amoxicillin/Clavulanate [Augmentin] 875 mg PO BIDWM #10 tablet 11/24/16 [Rx] Docusate [Colace] 100 mg PO BID PRN #60 capsule 11/24/16 [Rx] Ergocalciferol (VITAMIN D2) [Drisdol (50,000 Unit)] 50,000 unit PO QWEEK #15 capsule 11/24/16 [Rx] Ferrous Sulfate 325 mg PO DAILY #90 tablet.dr 11/24/16 [Rx] HydrALAZINE 25 mg PO TIDAC #90 tablet 11/24/16 [Rx] Isosorbide DInitrate [Isordil] 5 mg PO TIDAC #90 tablet 11/24/16 [Rx] Polyethylene Glycol 3350 [MiraLAX] 17 gm PO DAILY #30 powd.pack 11/24/16 [Rx] Sennosides/Docusate Sodium [Senna Plus] 1 each PO BID PRN #60 tablet 11/24/16 [ Rx] Allergies Sulfa (Sulfonamide Antibiotics) Allergy (Verified 02/27/16 07:55) Rash carbidopa Adverse Reaction (Verified 02/27/16 07:55) Gastrointestinal Upset clonazepam Adverse Reaction (Verified 02/27/16 07:55) Gastrointestinal Upset clotrimazole Adverse Reaction (Verified 02/27/16 07:55) Gastrointestinal Upset fexofenadine [From Brandy] Adverse Reaction (Verified 02/27/16 07:55) Gastrointestinal Upset guaifenesin [From Robitussin] Adverse Reaction (Verified 02/27/16 07:55) Gastrointestinal Upset hydrochlorothiazide Adverse Reaction (Verified 02/27/16 07:55) Rash levodopa [From Sinemet] Adverse Reaction (Verified 02/27/16 07:55) Gastrointestinal Upset pioglitazone [From Actos] Adverse Reaction (Verified 02/27/16 07:55) Gastrointestinal Upset ropinirole [From Requip] Adverse Reaction (Verified 02/27/16 07:55) Gastrointestinal Upset sertraline [From Zoloft] Adverse Reaction (Verified 02/27/16 07:55) Drowsy tamsulosin [From Flomax] Adverse Reaction (Verified 02/27/16 07:55) Gastrointestinal Upset All Systems PM: A 10-system review of systems was performed and is negative for pertinent findings except as documented above in the HPI. - Constitutional Constitutional: as per HPI, chills, fatigue, fever(s), malaise, weakness, no night sweats - EENT Eyes: as per HPI, no change in vision, no discharge, no pain, no photophobia Ears: as per HPI, decreased hearing, no ear discharge, no ear pain, no tinnitus Nose, mouth and throat: as per HPI, no dysphagia, no nasal discharge, no neck pain, no sore throat - Cardiovascular Cardiovascular ROS IM: as per HPI, dyspnea, dyspnea on exertion, other, no chest pain, no diaphoresis, no lightheadedness, no palpitations, no syncope - Respiratory Respiratory: as per HPI, cough, dyspnea, dyspnea on exertion, wheezing, chest congestion, no hemoptysis, no excessive phlegm production - Gastrointestinal Gastrointestinal: as per HPI, no abdominal pain, no diarrhea, no hematemesis, no hematochezia, no melena, no nausea, no vomiting - Genitourinary Genitourinary ROS male: as per HPI - Musculoskeletal Musculoskeletal ROS IM: as per HPI, no numbness, no tingling - Integumentary Integumentary IM: as per HPI, no rash, no unusual bruising - Neurological Neurological ROS: as per HPI, no confusion, no convulsions, no focal weakness, no numbness, no tingling, no tremor(s) - Psychiatric Psychiatric: as per HPI - Endocrine Endocrine IM: as per HPI - Hematologic/Lymphatic Hematologic/Lymphatic: as per HPI, no easy bruising - Allergic/Immunologic Allergic/Immunologic: as per HPI - Constitutional Vitals: Temp Pulse Resp BP Pulse Ox 97.3 F L 68 18 141/67 96 11/20/16 16:15 11/20/16 18:11 11/20/16 19:23 11/20/16 19:23 11/20/16 18:11 General appearance: Present: mild distress, A&O X 3, answers questions appropriately - Head Head exam: Present: atraumatic, normocephalic - Eye Eye exam: Present: EOMI, PERRL, conjuntiva pink, sclera anicteric Pupils: Present: normal accommodation, PERRL - ENT ENT exam: Present: mucous membranes moist, normal oropharynx - Neck Neck exam general surgery: Present: full ROM, supple, trachea midline. Absent: lymphadenopathy - Respiratory Respiratory exam: Present: chest wall tenderness, decreased breath sounds, rhonchi, wheezes. Absent: accessory muscle use, rales - Cardiovascular Cardiovascular exam: Present: distant heart sounds, RRR, +S1, +S2. Absent: diastolic murmur, gallop, rubs, systolic murmur - GI/Abdominal GI/Abdominal exam: Present: normal bowel sounds, soft, no peritoneal signs. Absent: distended, tenderness - Extremities Exam Extremities exam: Present: full ROM, warm, radial pulses palpable and symetrical. Absent: calf tenderness, cyanotic, pedal edema - Neurological Exam Neurological exam: Present: alert, altered, CN II-XII intact, oriented X3, no focal deficits. Absent: pronater drift, facial droop, speech deficit - Psychiatric Psychiatric exam: Present: normal affect, normal mood - Skin Skin exam: Present: dry, intact, warm. Absent: petechiae, rash, urticaria, vesicles Internal Med - H&P Results - Labs CBC & Chem 7: 11/24/16 05:18 11/24/16 05:18 - Impressions Vital Signs Temp Pulse Resp BP Pulse Ox 11/20/16 19:23 18 141/67 11/20/16 18:11 68 18 127/54 96 11/20/16 17:07 18 95 11/20/16 16:15 97.3 F L 103 18 149/61 94 L Intake and Output 11/20/16 11/20/16 11/20/16 07:59 15:59 23:59 Other: Weight 68.039 kg Patient Weight 11/20/16 23:59 Weight 68.039 kg Short CBC 11/20/16 Range/Units 17:07 WBC 5.6 (4.3-11.1) K/mcL Hgb 13.0 (12.9-16.9) g/dL Hct 38.3 (37.5-50.1) % Plt Count 151 (140-400) K/mcL Neutrophils # 4.6 (1.6-8.9) K/mcL BMP 11/20/16 Range/Units 17:07 Sodium 139 (136-145) mEq/L Potassium 4.0 (3.5-4.5) mEq/L Chloride 101 (98-109) mEq/L Carbon Dioxide 23 (19-29) mEq/L BUN 36 H (8-26) mg/dL Creatinine 1.43 H (0.72-1.25) mg/dL Glucose 392 H (70-99) mg/dL Calcium 9.5 (8.6-10.8) mg/dL Cardiac Enzymes 11/20/16 Range/Units 17:07 Troponin I 0.01 (0-0.03) ng/mL Abnormal lab results RBC 4.04 M/mcL (4.19-5.50) L 11/20/16 17:07 APTT 24.9 Seconds (26.0-36.0) L 11/20/16 17:07 BUN 36 mg/dL (8-26) H 11/20/16 17:07 Creatinine 1.43 mg/dL (0.72-1.25) H 11/20/16 17:07 Est GFR ( Amer) 57 (> 60) L 11/20/16 17:07 Est GFR (Non-Af Amer) 47 (> 60) L 11/20/16 17:07 Glucose 392 mg/dL (70-99) H 11/20/16 17:07 Calculated Osmolality 313 (280-300) H 11/20/16 17:07 B-Natriuretic Peptide 399 pg/mL (0-100) H 11/20/16 17:07 Allergies Allergy/AdvReac Type Severity Reaction Status Date / Time Sulfa (Sulfonamide Allergy Rash Verified 02/27/16 07:55 Antibiotics) carbidopa AdvReac Gastrointestinal Verified 02/27/16 07:55 Upset clonazepam AdvReac Gastrointestinal Verified 02/27/16 07:55 Upset clotrimazole AdvReac Gastrointestinal Verified 02/27/16 07:55 Upset fexofenadine [From Brandy] AdvReac Gastrointestinal Verified 02/27/16 07:55 Upset guaifenesin [From Robitussin] AdvReac Gastrointestinal Verified 02/27/16 07:55 Upset hydrochlorothiazide AdvReac Rash Verified 02/27/16 07:55 levodopa [From Sinemet] AdvReac Gastrointestinal Verified 02/27/16 07:55 Upset pioglitazone [From Actos] AdvReac Gastrointestinal Verified 02/27/16 07:55 Upset ropinirole [From Requip] AdvReac Gastrointestinal Verified 02/27/16 07:55 Upset sertraline [From Zoloft] AdvReac Drowsy Verified 02/27/16 07:55 tamsulosin [From Flomax] AdvReac Gastrointestinal Verified 02/27/16 07:55 Upset Laboratory Results WBC 5.6 K/mcL (4.3-11.1) 11/20/16 17:07 RBC 4.04 M/mcL (4.19-5.50) L 11/20/16 17:07 Hgb 13.0 g/dL (12.9-16.9) 11/20/16 17:07 Hct 38.3 % (37.5-50.1) 11/20/16 17:07 MCV 94.8 fL (83.0-100.0) 11/20/16 17:07 MCH 32.2 pg (28.0-33.3) 11/20/16 17:07 MCHC 33.9 g/dL (31.6-35.5) 11/20/16 17:07 RDW 13.1 % (11.5-14.5) 11/20/16 17:07 Plt Count 151 K/mcL (140-400) 11/20/16 17:07 MPV 9.6 fL (9.4-12.4) 11/20/16 17:07 Immature Gran % 1.1 % (0-4) 11/20/16 17:07 Seg Neutrophils % 81.7 % 11/20/16 17:07 Lymphocytes % 10.7 % 11/20/16 17:07 Monocytes % 6.3 % 11/20/16 17:07 Eosinophils % 0.0 % 11/20/16 17:07 Basophils % 0.2 % 11/20/16 17:07 Neutrophils # 4.6 K/mcL (1.6-8.9) 11/20/16 17:07 Lymphocytes # 0.6 K/mcL (0.6-4.6) 11/20/16 17:07 Monocytes # 0.4 K/mcL (0.0-1.3) 11/20/16 17:07 Eosinophils # 0.0 K/mcL (0.0-0.6) 11/20/16 17:07 Basophils # 0.0 K/mcL (0.0-0.2) 11/20/16 17:07 PT 11.9 Seconds (9.4-12.1) 11/20/16 17: INR 1.1 11/20/16 17:07 APTT 24.9 Seconds (26.0-36.0) L 11/20/16 17:07 Sodium 139 mEq/L (136-145) 11/20/16 17:07 Potassium 4.0 mEq/L (3.5-4.5) 11/20/16 17:07 Chloride 101 mEq/L (98-109) 11/20/16 17:07 Carbon Dioxide 23 mEq/L (19-29) 11/20/16 17:07 BUN 36 mg/dL (8-26) H 11/20/16 17:07 Creatinine 1.43 mg/dL (0.72-1.25) H 11/20/16 17:07 Est GFR ( Amer) 57 (> 60) L 11/20/16 17:07 Est GFR (Non-Af Amer) 47 (> 60) L 11/20/16 17:07 BUN/Creatinine Ratio 25 (6-26) 11/20/16 17:07 Glucose 392 mg/dL (70-99) H 11/20/16 17:07 Calculated Osmolality 313 (280-300) H 11/20/16 17:07 Calcium 9.5 mg/dL (8.6-10.8) 11/20/16 17:07 Troponin I 0.01 ng/mL (0-0.03) 11/20/16 17:07 B-Natriuretic Peptide 399 pg/mL (0-100) H 11/20/16 17:07 Impressions Chest X-Ray 11/20/16 16:34 IMPRESSION: Subtle patchy consolidation within the right lower lobe corresponding to findings on prior CT chest dated November 17, 2016. D/ / Michael Blanton MD / Michael Blanton MD Interpreting Provider: Michael Blanton MD
[2016-11-20] MEDS ORDERED: Vancomycin 1,000 MG in D5% in Water 250 ML IVPB SCH (21:00)
[2016-11-20] MEDS ORDERED: Insulin DETEMIR 100 UNIT/ML X5UNITS SQ SCH (21:00)
[2016-11-20] MEDS ORDERED: Levofloxacin 500 MG/100 ML 500 MG/100 ML BAG IVPB SCH (21:00)
[2016-11-20 21:41] LABS: VBG HCO3 31.9 mEq/L (21-27); VBG PH 7.38 pH Units (7.32-7.42)
[2016-11-20] MEDS: Finasteride 5 MG TABLET PO SCH (21:54)
[2016-11-20] MEDS: Melatonin 3 MG TABLET PO SCH (21:55)
[2016-11-20] MEDS: Benzonatate 100 MG CAPSULE PO SCH (21:56)
[2016-11-20] MEDS: ALPRAZolam 0.25 MG TABLET PO SCH (21:56)
[2016-11-20] MEDS: Gabapentin 300 MG CAPSULE PO SCH (21:56)
[2016-11-20] MEDS: Famotidine 20 MG TABLET PO SCH (21:57)
[2016-11-20] MEDS: Insulin LISPRO 300 UNITS/3 ML VIAL SQ SCH (21:58)
[2016-11-20] MEDS: Piperacillin/Tazobactam 3.375 GM in D5% in Water (Mini-Bag+) 100 ML IVPB SCH (23:44)
[2016-11-21] MEDS: Ipratropium/Albuterol Neb 3 ML IH SCH ×5 (01:19→22:53)
[2016-11-21 04:08] LABS: Bilirubin,Urine Negative (Negative); Blood,Urine Trace (Negative); Clarity,Urine Clear (Clear); Color,Urine Yellow (Yellow); Glucose,Urine (UA) >=1000 mg/dL (Normal); Ketones,Urine Negative (Negative); Leukocyte Esterase,Urine Negative (Negative); Nitrite,Urine Negative (Negative); Protein,Urine 100 mg/dL (Neg-Trace); Specific Gravity,Urine 1.026 (1.010-1.025); Urobilinogen,Urine Normal (Normal)
[2016-11-21 04:11] LABS: Bacteria,Urine None Seen per hpf (None-Few); Hyaline Casts,Urine None Seen per lpf (None-Few); RBC,Urine 0-3 per hpf (0-3); Squamous Epithelial Cell,Urine Few per lpf (None-Few); WBC,Urine 0-3 per hpf (0-3)
[2016-11-21 04:14] LABS: Hematocrit 36.4 % (37.5-50.1); Hemoglobin 12.1 g/dL (12.9-16.9); Mean Corpuscular HGB Conc 33.2 g/dL (31.6-35.5); Mean Corpuscular Hemoglobin 31.5 pg (28.0-33.3); Mean Corpuscular Volume 94.8 fL (83.0-100.0); Mean Platelet Volume 9.5 fL (9.4-12.4); Platelet Count 154 K/mcL (140-400); Red Blood Count 3.84 M/mcL (4.19-5.50); Red Cell Distribution Width 12.9 % (11.5-14.5)
[2016-11-21 04:30] LABS: Ionized Calcium 1.17 mmol/L (1.15-1.35)
[2016-11-21 04:48] LABS: Albumin 3.2 g/dL (3.5-5.0); Bilirubin,Total 0.4 mg/dL (0.2-1.2); Calcium 8.9 mg/dL (8.6-10.8); Magnesium 1.6 mg/dL (1.6-2.6); Phosphorous 3.3 mg/dL (2.3-4.7); Potassium 4.4 mEq/L (3.5-4.5); Total Protein 6.1 g/dL (6.0-8.3)
[2016-11-21 04:49] LABS: Albumin/Globulin Ratio 1.1 (1.1-2.2); Chol/HDL Ratio 3.2 (0-4.9); Globulin 2.9 g/dL (2.4-3.5)
[2016-11-21 05:12] LABS: Thyroid Stimulating Hormone 0.234 mcIU/mL (0.350-4.840)
[2016-11-21] MEDS: *HR* Heparin 5,000 UNIT/ML VIAL SQ SCH ×2 (05:55→19:55)
[2016-11-21] MEDS: predniSONE 20 MG TABLET PO SCH (09:36)
[2016-11-21] MEDS: Loratadine 10 MG TABLET PO SCH (09:37)
[2016-11-21] MEDS: Gabapentin 300 MG CAPSULE PO SCH ×2 (09:37→19:55)
[2016-11-21] MEDS: ALPRAZolam 0.25 MG TABLET PO SCH ×2 (09:37→19:55)
[2016-11-21] MEDS: Famotidine 20 MG TABLET PO SCH (09:37)
[2016-11-21] MEDS: Insulin LISPRO 300 UNITS/3 ML VIAL SQ SCH ×4 (09:38→20:06)
[2016-11-21] MEDS: Benzonatate 100 MG CAPSULE PO SCH (09:50)
--- NOTE | 2016-11-21 09:56 | Internal Med Progress Note ---
Date of Encounter: 11/21/16 Time of Encounter: 09:54 - Assessment and plan (1) Pneumonia Current Visit: Yes Status: Acute Assessment and plan: CT chest shows right lower lobe pneumonia. Patient presented with hypoxemia, respiratory distress. No fever or leukocytosis. Noted to have very minimal troponin elevation, which is likely related to underlying hypoxemia and pneumonia. Continue telemetry monitoring and trend serial troponins. Hold IV Levaquin for now as he has been treated with oral Levaquin course recently with no improvement in symptoms. Continue IV Zosyn and vancomycin due to recent hospital admission. Continue IV hydration, supportive care. Follow blood cultures, urine for Legionella and strep pneumonia antigens. We will discuss with pulmonology due to recurrent pneumonias, for possible bronchoscopy. When necessary antitussives. (2) Acute respiratory failure with hypoxia Current Visit: Yes Status: Acute Assessment and plan: Likely related to underlying pneumonia. Continue supplemental oxygen as needed. Physical therapy evaluation. (3) Anxiety Current Visit: Yes Status: Chronic (4) CKD (chronic kidney disease) stage 3, GFR 30-59 ml/min Current Visit: Yes Status: Chronic Assessment and plan: Serum creatinine and GFR noted to be at his baseline. Continue to monitor closely. Continue IV hydration and dose antibiotics according to current GFR. Avoid new nephrotoxic agents. (5) Diabetes mellitus Current Visit: Yes Status: Chronic Assessment and plan: Patient is noted to have well-controlled blood sugars at home, according to his and noted to be not on insulin at home. Presented with hyperosmolar hyperglycemic state, likely related to steroid use. Discontinue steroids for now. Increase basal insulin and continue sliding scale insulin. IV hydration with normal saline. Hemoglobin A1c noted to be 8%. Continue Accu-Chek blood glucose monitoring. Diabetic diet. Qualifiers: Diabetes mellitus type: type 2 Diabetes mellitus complication status: with hyperglycemia Diabetes mellitus spanisher insulin use: without spanisher use Qualified Code(s): E11.65 - Type 2 diabetes mellitus with hyperglycemia (6) Essential hypertension Current Visit: Yes Status: Chronic (7) BPH (benign prostatic hyperplasia) Current Visit: Yes Status: Chronic Qualifiers: Prostatic enlargement morphology: unspecified morphology Lower urinary tract symptom presence: presence of symptoms unspecified Qualified Code(s): N40.0 - Benign prostatic hyperplasia without lower urinary tract symptoms - Subjective Interval history: Reports some productive cough, yellowish sputum which is improving today. No chest pain, shortness of breath. Feels better since admission. Plan of care discussed with patient and at bedside. - Constitutional Vitals: Temp Pulse Resp BP Pulse Ox 97.6 F 55 20 161/64 95 11/21/16 00:44 11/21/16 00:44 11/21/16 05:10 11/21/16 00:44 11/21/16 05:10 General appearance: Present: A&O X 3, answers questions appropriately - Head Head exam: Present: atraumatic, normocephalic - Neck Neck exam general surgery: Present: supple, trachea midline. Absent: lymphadenopathy - Respiratory Respiratory exam: Present: CTAB. Absent: accessory muscle use, rales, rhonchi, wheezes - Cardiovascular Cardiovascular exam: Present: RRR, +S1, +S2. Absent: diastolic murmur, gallop, rubs, systolic murmur - GI/Abdominal GI/Abdominal exam: Present: normal bowel sounds, soft, no peritoneal signs. Absent: distended, tenderness - Extremities Exam Extremities exam: Present: full ROM, pedal edema (Trace edema in bilateral lower legs), warm, radial pulses palpable and symetrical. Absent: calf tenderness, cyanotic - Neurological Exam Neurological exam: Present: CN II-XII intact, oriented X3, no focal deficits. Absent: pronater drift, facial droop, speech deficit - Skin Skin exam: Present: dry, intact Internal Medicine: Result - Labs CBC & Chem 7: 11/21/16 03:54 11/21/16 03:54 Labs: Short CBC 11/21/16 Range/Units 03:54 WBC 6.3 (4.3-11.1) K/mcL Hgb 12.1 L (12.9-16.9) g/dL Hct 36.4 L (37.5-50.1) % Plt Count 154 (140-400) K/mcL BMP 11/21/16 03:54 Sodium 139 Potassium 4.4 Chloride 101 Carbon Dioxide 26 BUN 31 H Creatinine 1.45 H Glucose 244 H Calcium 8.9 Cardiac Enzymes 11/20/16 11/21/16 Range/Units 21:29 03:54 Troponin I 0.03 0.04 H* (0-0.03) ng/mL Liver Function 11/21/16 Range/Units 03:54 Total Bilirubin 0.4 (0.2-1.2) mg/dL AST 12 (5-34) Units/L ALT 10 (0-55) Units/L Alkaline Phosphatase 65 (38-126) Units/L Albumin 3.2 L (3.5-5.0) g/dL Urine 11/21/16 Range/Units 04:00 Urine Color Yellow (Yellow) Urine Clarity Clear (Clear) Urine pH 6.0 (5.0-8.0) pH Units Ur Specific [place] 1.026 H (1.010-1.025) Urine Protein 100 H (Neg-Trace) mg/dL Urine Glucose (UA) >=1000 H (Normal) mg/dL - ABG Interpretation ABG results: PT/INR, D-dimer PT 11.9 Seconds (9.4-12.1) 11/20/16 17:07 Consult Discharge Plan - Plan Referrals: Erica Bennett MD [Primary Care Provider] -
[2016-11-21] MEDS: Insulin DETEMIR 100 UNIT/ML X5UNITS SQ SCH ×2 (10:40→20:06)
[2016-11-21] MEDS: 0.9 % Sodium Chloride 1,000 ML IVC SCH (10:40)
[2016-11-21] MEDS: Piperacillin/Tazobactam 3.375 GM in D5% in Water (Mini-Bag+) 100 ML IVPB SCH (12:31)
[2016-11-21] MEDS: Finasteride 5 MG TABLET PO SCH (19:55)
[2016-11-21] MEDS: Melatonin 3 MG TABLET PO SCH (19:55)
[2016-11-21] MEDS ORDERED: Vancomycin 1,000 MG in D5% in Water 250 ML IVPB ONE (22:00)
[2016-11-21] MEDS ORDERED: hydrALAZINE 25 MG TABLET PO STA (22:44)
[2016-11-22] MEDS: Piperacillin/Tazobactam 3.375 GM in D5% in Water (Mini-Bag+) 100 ML IVPB SCH ×2 (00:55→11:56)
[2016-11-22] MEDS: Ipratropium/Albuterol Neb 3 ML IH SCH ×4 (03:57→22:28)
[2016-11-22] MEDS: 0.9 % Sodium Chloride 1,000 ML IVC SCH ×2 (05:06→19:54)
[2016-11-22] MEDS: predniSONE 20 MG TABLET PO SCH (07:15)
[2016-11-22] MEDS: Famotidine 20 MG TABLET PO SCH (07:15)
[2016-11-22] MEDS: Insulin LISPRO 300 UNITS/3 ML VIAL SQ SCH ×4 (07:16→22:31)
[2016-11-22] MEDS: ALPRAZolam 0.25 MG TABLET PO SCH ×2 (07:16→19:53)
[2016-11-22] MEDS: hydrALAZINE 25 MG TABLET PO SCH ×3 (07:16→16:08)
[2016-11-22] MEDS: Gabapentin 300 MG CAPSULE PO SCH ×2 (07:16→19:53)
[2016-11-22] MEDS: Loratadine 10 MG TABLET PO SCH (07:16)
[2016-11-22] MEDS: *HR* Heparin 5,000 UNIT/ML VIAL SQ SCH ×2 (07:18→17:57)
[2016-11-22] MEDS ORDERED: Dextrose Gel 15 GM PO PRN ×2 (07:50)
[2016-11-22] MEDS ORDERED: predniSONE 20 MG TABLET PO SCH (07:50)
[2016-11-22] MEDS ORDERED: *HR* Dextrose 50 % in Water (Syg) 50 ML SYRINGE IVP PRN (07:50)
[2016-11-22] MEDS ORDERED: D5% in Water 1,000 ML IV PRN (07:50)
--- NOTE | 2016-11-22 08:07 | Internal Med Progress Note ---
Date of Encounter: 11/22/16 Time of Encounter: 08:05 - Assessment and plan (1) Pneumonia Current Visit: Yes Status: Acute Assessment and plan: CT chest shows right lower lobe pneumonia. Patient presented with hypoxemia, respiratory distress. Noted to have very minimal troponin elevation, which is likely related to underlying hypoxemia and pneumonia. Troponins currently normalized. Continue IV Zosyn and vancomycin due to recent hospital admission. supportive care. Preliminary blood cultures are negative. Continues to require low flow oxygen. Case discussed with pulmonology who recommended to continue current management and there is no indication for bronchoscopy at this time given that his CT chest did not show any mucus plugging or mass. When necessary antitussives. Physical therapy evaluation noted, patient has no PT needs at this time. (2) Acute respiratory failure with hypoxia Current Visit: Yes Status: Acute Assessment and plan: Likely related to underlying pneumonia. Continue supplemental oxygen as needed. Physical therapy evaluation as above. (3) Anxiety Current Visit: Yes Status: Chronic (4) CKD (chronic kidney disease) stage 3, GFR 30-59 ml/min Current Visit: Yes Status: Chronic (5) Diabetes mellitus Current Visit: Yes Status: Chronic Assessment and plan: Blood sugars noted to be better controlled than yesterday. We will increase sliding scale insulin. Continue basal bolus insulin regimen with diabetic diet. Continue Accu-Chek blood glucose monitoring. Qualifiers: Diabetes mellitus type: type 2 Diabetes mellitus complication status: with hyperglycemia Diabetes mellitus prison insulin use: without long term care social worker use Qualified Code(s): E11.65 - Type 2 diabetes mellitus with hyperglycemia (6) Essential hypertension Current Visit: Yes Status: Chronic (7) BPH (benign prostatic hyperplasia) Current Visit: Yes Status: Chronic Qualifiers: Prostatic enlargement morphology: unspecified morphology Lower urinary tract symptom presence: presence of symptoms unspecified Qualified Code(s): N40.0 - Benign prostatic hyperplasia without lower urinary tract symptoms - Subjective Interval history: Feels better today but had some anxiety last night and was unable to sleep. He received a medication to help him sleep after which he fell into deep sleep. Improving cough. No reported chest pain, shortness of breath. Physical therapy has seen the patient and deemed he has no needs. Continues to require low flow supplemental oxygen. - Constitutional Vitals: Temp Pulse Resp BP Pulse Ox 98.5 F 80 17 164/92 94 L 11/22/16 07:10 11/22/16 07:10 11/22/16 07:10 11/22/16 07:10 11/22/16 07:31 General appearance: Present: A&O X 3, answers questions appropriately - Respiratory Respiratory exam: Present: CTAB. Absent: accessory muscle use, rales, rhonchi, wheezes - Cardiovascular Cardiovascular exam: Present: RRR, +S1, +S2. Absent: diastolic murmur, gallop, rubs, systolic murmur - GI/Abdominal GI/Abdominal exam: Present: normal bowel sounds, soft, no peritoneal signs. Absent: distended, tenderness - Extremities Exam Extremities exam: Present: full ROM, warm, radial pulses palpable and symetrical. Absent: calf tenderness, cyanotic, pedal edema - Skin Skin exam: Present: dry, intact Internal Medicine: Result - Labs CBC & Chem 7: 11/21/16 03:54 11/21/16 03:54 Labs: Cardiac Enzymes 11/21/16 Range/Units 09:42 Troponin I 0.02 (0-0.03) ng/mL - ABG Interpretation ABG results: PT/INR, D-dimer PT 11.9 Seconds (9.4-12.1) 11/20/16 17:07 Consult Discharge Plan - Plan Referrals: Erica Bennett MD [Primary Care Provider] -
[2016-11-22 08:33] LABS: BUN/Creatinine Ratio 22 (6-26); Blood Urea Nitrogen 27 mg/dL (8-26); Calcium 8.5 mg/dL (8.6-10.8); Carbon Dioxide 26 mEq/L (19-29); Chloride 103 mEq/L (98-109); Glucose 302 mg/dL (70-99); Magnesium 1.6 mg/dL (1.6-2.6); Osmolality,Calculated 300 (280-300); Potassium 3.7 mEq/L (3.5-4.5); Sodium 137 mEq/L (136-145); eGFR For African Americans > 60 (> 60); eGFR For Non-African Americans 56 (> 60)
[2016-11-22] MEDS: Insulin DETEMIR 100 UNIT/ML X5UNITS SQ SCH ×2 (10:17→22:31)
[2016-11-22] MEDS: Melatonin 3 MG TABLET PO SCH (19:53)
[2016-11-22] MEDS: Finasteride 5 MG TABLET PO SCH (19:54)
[2016-11-23] MEDS: Piperacillin/Tazobactam 3.375 GM in D5% in Water (Mini-Bag+) 100 ML IVPB SCH ×3 (00:06→19:00)
[2016-11-23] MEDS ORDERED: Vancomycin 1,500 MG in D5% in Water 250 ML IVPB ONE (00:30)
[2016-11-23] MEDS: Ipratropium/Albuterol Neb 3 ML IH SCH ×4 (05:14→23:27)
[2016-11-23] MEDS: Gabapentin 300 MG CAPSULE PO SCH ×2 (07:34→21:06)
[2016-11-23] MEDS: Famotidine 20 MG TABLET PO SCH (07:34)
[2016-11-23] MEDS: Loratadine 10 MG TABLET PO SCH (07:36)
[2016-11-23] MEDS: ALPRAZolam 0.25 MG TABLET PO SCH ×2 (07:36→21:06)
[2016-11-23] MEDS: hydrALAZINE 25 MG TABLET PO SCH ×3 (07:36→15:34)
[2016-11-23] MEDS: *HR* Heparin 5,000 UNIT/ML VIAL SQ SCH ×2 (07:51→18:58)
[2016-11-23] MEDS: Insulin LISPRO 300 UNITS/3 ML VIAL SQ SCH ×4 (07:52→21:07)
--- NOTE | 2016-11-23 08:04 | Internal Med Progress Note ---
Date of Encounter: 11/23/16 Time of Encounter: 08:04 - Assessment and plan (1) Pneumonia Current Visit: Yes Status: Acute Assessment and plan: CT chest shows right lower lobe pneumonia. Patient presented with hypoxemia, respiratory distress. Noted to have very minimal troponin elevation, which is likely related to underlying hypoxemia and pneumonia. Troponins currently normalized. Continue IV Zosyn and vancomycin due to recent hospital admission. supportive care. Preliminary blood cultures are negative. Preliminary sputum culture shows Danelle species, unsure if this is colonization due to recent hospitalization. We will discuss with pulmonary. Continues to require low flow oxygen. When necessary antitussives. We will start acetylcysteine inhalation. Needs home O2 evaluation prior to discharge. Physical therapy evaluation noted, patient has no PT needs at this time. However patient appears weak today, will continue to monitor. (2) Acute respiratory failure with hypoxia Current Visit: Yes Status: Acute Assessment and plan: Likely related to underlying pneumonia. Continue supplemental oxygen as needed. Patient carries no diagnosis of COPD and his steroids have been held. We will continue bronchodilators. Physical therapy evaluation as above. (3) Anxiety Current Visit: Yes Status: Chronic (4) CKD (chronic kidney disease) stage 3, GFR 30-59 ml/min Current Visit: Yes Status: Chronic (5) Diabetes mellitus Current Visit: Yes Status: Chronic Assessment and plan: Blood sugars noted to be improving with discontinuation of steroids. Noted to have 1 episode of hypoglycemia last night. We will hold basal insulin and continue sliding scale insulin at this time. Continue Accu-Chek blood glucose monitoring. Qualifiers: Diabetes mellitus type: type 2 Diabetes mellitus complication status: with hyperglycemia Diabetes mellitus molder sweep insulin use: without correction use Qualified Code(s): E11.65 - Type 2 diabetes mellitus with hyperglycemia (6) Essential hypertension Current Visit: Yes Status: Chronic (7) BPH (benign prostatic hyperplasia) Current Visit: Yes Status: Chronic Qualifiers: Prostatic enlargement morphology: unspecified morphology Lower urinary tract symptom presence: presence of symptoms unspecified Qualified Code(s): N40.0 - Benign prostatic hyperplasia without lower urinary tract symptoms (8) Constipation Current Visit: Yes Status: Chronic Assessment and plan: Start MiraLAX and senna plus twice daily. Qualifiers: Constipation type: slow transit constipation Qualified Code(s): K59.01 - Slow transit constipation - Subjective Interval history: Does not appear well today; reports he could not sleep last night and has been restless. Unable to bring up his cough and feels congested. No chest pain. Continues to require 2 L/m oxygen via nasal cannula. Also reports severe constipation, no bowel movement since 4 days. - Constitutional Vitals: Temp Pulse Resp BP Pulse Ox 97.4 F L 89 18 106/55 94 L 11/23/16 06:51 11/23/16 06:51 11/23/16 06:51 11/23/16 06:51 11/23/16 06:51 General appearance: Present: A&O X 3, answers questions appropriately - Respiratory Respiratory exam: Present: decreased breath sounds (At bilateral bases), CTAB. Absent: accessory muscle use, rales, rhonchi, wheezes - Cardiovascular Cardiovascular exam: Present: RRR, +S1, +S2. Absent: diastolic murmur, gallop, rubs, systolic murmur - GI/Abdominal GI/Abdominal exam: Present: normal bowel sounds, soft, no peritoneal signs. Absent: distended, tenderness - Extremities Exam Extremities exam: Present: warm, radial pulses palpable and symetrical. Absent : calf tenderness, cyanotic, pedal edema Internal Medicine: Result - Labs CBC & Chem 7: 11/21/16 03:54 11/22/16 07:20 Labs: BMP 11/22/16 07:20 Sodium 137 Potassium 3.7 Chloride 103 Carbon Dioxide 26 BUN 27 H Creatinine 1.23 Glucose 302 H Calcium 8.5 L - ABG Interpretation ABG results: PT/INR, D-dimer PT 11.9 Seconds (9.4-12.1) 11/20/16 17:07 Consult Discharge Plan - Plan Referrals: Erica Bennett MD [Primary Care Provider] -
[2016-11-23] MEDS: Acetylcysteine 10% 2 ML INHSOL IH SCH ×3 (09:46→23:27)
[2016-11-23] MEDS: Sennosides/Docusate Sodium TABLET PO SCH ×2 (11:09→21:06)
--- NOTE | 2016-11-23 15:00 | Electrocardiograph Report ---
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
[2016-11-23] MEDS: Finasteride 5 MG TABLET PO SCH (21:05)
[2016-11-23] MEDS: Melatonin 3 MG TABLET PO SCH (21:06)
[2016-11-23] MEDS ORDERED: Vancomycin 1,500 MG in D5% in Water 250 ML IVPB SCH (23:30)
[2016-11-24] MEDS: Piperacillin/Tazobactam 3.375 GM in D5% in Water (Mini-Bag+) 100 ML IVPB SCH ×2 (02:42→11:37)
[2016-11-24] MEDS: Ipratropium/Albuterol Neb 3 ML IH SCH ×2 (04:33→10:45)
[2016-11-24] MEDS: Acetylcysteine 10% 2 ML INHSOL IH SCH (04:42)
[2016-11-24 05:52] LABS: Basophils # 0.1 K/mcL (0.0-0.2); Basophils % 0.9 %; Eosinophils # 0.2 K/mcL (0.0-0.6); Eosinophils % 2.4 %; Hematocrit 38.6 % (37.5-50.1); Hemoglobin 12.5 g/dL (12.9-16.9); Immature Granulocytes % 4.9 % (0-4); Lymphocytes # 1.6 K/mcL (0.6-4.6); Lymphocytes % 24.9 %; Mean Corpuscular HGB Conc 32.4 g/dL (31.6-35.5); Mean Corpuscular Hemoglobin 31.9 pg (28.0-33.3); Mean Corpuscular Volume 98.5 fL (83.0-100.0); Mean Platelet Volume 9.8 fL (9.4-12.4); Monocytes # 0.4 K/mcL (0.0-1.3); Monocytes % 6.5 %; Neutrophils # 3.8 K/mcL (1.6-8.9); Nucleated Red Blood Cells 0.3 /100 WBC (0); Platelet Count 160 K/mcL (140-400); Red Blood Count 3.92 M/mcL (4.19-5.50); Red Cell Distribution Width 13.5 % (11.5-14.5); Segmented Neutrophils % 60.4 %
[2016-11-24 06:06] LABS: BUN/Creatinine Ratio 19 (6-26); Blood Urea Nitrogen 24 mg/dL (8-26); Calcium 9.1 mg/dL (8.6-10.8); Carbon Dioxide 31 mEq/L (19-29); Chloride 104 mEq/L (98-109); Glucose 130 mg/dL (70-99); Osmolality,Calculated 304 (280-300); Potassium 4.3 mEq/L (3.5-4.5); Sodium 144 mEq/L (136-145); eGFR For African Americans > 60 (> 60); eGFR For Non-African Americans 53 (> 60)
[2016-11-24] MEDS: *HR* Heparin 5,000 UNIT/ML VIAL SQ SCH (06:22)
[2016-11-24] MEDS: Insulin LISPRO 300 UNITS/3 ML VIAL SQ SCH ×2 (08:12→11:43)
[2016-11-24] MEDS: Sennosides/Docusate Sodium TABLET PO SCH (08:13)
[2016-11-24] MEDS: ALPRAZolam 0.25 MG TABLET PO SCH (08:13)
[2016-11-24] MEDS: Loratadine 10 MG TABLET PO SCH (08:13)
[2016-11-24] MEDS: Famotidine 20 MG TABLET PO SCH (08:14)
[2016-11-24] MEDS: hydrALAZINE 25 MG TABLET PO SCH ×2 (08:14→11:37)
[2016-11-24] MEDS: Gabapentin 300 MG CAPSULE PO SCH (08:14)
[2016-11-24] MEDS ORDERED: Acetylcysteine 10% 2 ML INHSOL IH SCH (10:00)
[2016-11-24 11:36] VITALS: BP 149/75
--- NOTE | 2016-11-24 13:44 | Discharge Summary ---
Date of Encounter: 11/24/16 Time of Encounter: 13:37 - Discharge Diagnosis (1) Acute kidney injury superimposed on chronic kidney disease Priority: Secondary Status: Acute (2) Acute respiratory failure with hypoxia Priority: Primary Status: Acute (3) Dyspnea Priority: Secondary Status: Acute Qualifiers: Dyspnea type: other forms of dyspnea Qualified Code(s): R06.09 - Other forms of dyspnea (4) Diabetes mellitus Priority: Secondary Status: Chronic Qualifiers: Diabetes mellitus type: type 2 Diabetes mellitus complication status: with hyperglycemia Diabetes mellitus fdc insulin use: without 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 helper use Qualified Code(s): E11.65 - Type 2 diabetes mellitus with hyperglycemia - Discharge Medications Prescriptions: Amoxicillin/Clavulanate [Augmentin] 875 mg PO BIDWM #10 tablet Docusate [Colace] 100 mg PO BID PRN #60 capsule PRN Reason: Constipation Ergocalciferol (VITAMIN D2) [Drisdol (50,000 Unit)] 50,000 unit PO QWEEK #15 capsule Ferrous Sulfate 325 mg PO DAILY #90 tablet. HydrALAZINE 25 mg PO TIDAC #90 tablet Isosorbide DInitrate [Isordil] 5 mg PO TIDAC #90 tablet Polyethylene Glycol 3350 [MiraLAX] 17 gm PO DAILY #30 powd.pack Sennosides/Docusate Sodium [Senna Plus] 1 each PO BID PRN #60 tablet PRN Reason: Constipation Home Medications: Alprazolam [Xanax 0.25 MG Tablet] 0.5 mg PO BID 02/27/16 [History] Atorvastatin [Lipitor] 10 mg PO QPM 02/27/16 [History] Clopidogrel [Plavix] 75 mg PO DAILY 02/27/16 [History] Cyanocobalamin (B-12) [Vitamin B12] 1,000 mcg IM QMONTH 02/27/16 [History] Gabapentin [Neurontin] 600 mg PO BID 02/27/16 [History] Glimepiride [Amaryl] 4 mg PO DAILY 02/27/16 [History] Metformin [Glucophage] 1,000 mg PO BID 02/27/16 [History] Pramipexole [Mirapex] 0.25 mg PO DAILY 02/27/16 [History] Ranitidine HCl [Zantac 75] 150 mg PO BID 02/27/16 [History] Tamsulosin [Flomax] 0.4 mg PO BID 02/27/16 [History] Finasteride [Proscar] 5 mg PO HS 10/24/16 [History] Amoxicillin/Clavulanate [Augmentin] 875 mg PO BIDWM #10 tablet 11/24/16 [Rx] Docusate [Colace] 100 mg PO BID PRN #60 capsule 11/24/16 [Rx] Ergocalciferol (VITAMIN D2) [Drisdol (50,000 Unit)] 50,000 unit PO QWEEK #15 capsule 11/24/16 [Rx] Ferrous Sulfate 325 mg PO DAILY #90 tablet.dr 11/24/16 [Rx] HydrALAZINE 25 mg PO TIDAC #90 tablet 11/24/16 [Rx] Isosorbide DInitrate [Isordil] 5 mg PO TIDAC #90 tablet 11/24/16 [Rx] Polyethylene Glycol 3350 [MiraLAX] 17 gm PO DAILY #30 powd.pack 11/24/16 [Rx] Sennosides/Docusate Sodium [Senna Plus] 1 each PO BID PRN #60 tablet 11/24/16 [ Rx] Allergies/Adverse Reactions: Allergies Sulfa (Sulfonamide Antibiotics) Allergy (Verified 02/27/16 07:55) Rash carbidopa Adverse Reaction (Verified 02/27/16 07:55) Gastrointestinal Upset clonazepam Adverse Reaction (Verified 02/27/16 07:55) Gastrointestinal Upset clotrimazole Adverse Reaction (Verified 02/27/16 07:55) Gastrointestinal Upset fexofenadine [From Brandy] Adverse Reaction (Verified 02/27/16 07:55) Gastrointestinal Upset guaifenesin [From Robitussin] Adverse Reaction (Verified 02/27/16 07:55) Gastrointestinal Upset hydrochlorothiazide Adverse Reaction (Verified 02/27/16 07:55) Rash levodopa [From Sinemet] Adverse Reaction (Verified 02/27/16 07:55) Gastrointestinal Upset pioglitazone [From Actos] Adverse Reaction (Verified 02/27/16 07:55) Gastrointestinal Upset ropinirole [From Requip] Adverse Reaction (Verified 02/27/16 07:55) Gastrointestinal Upset sertraline [From Zoloft] Adverse Reaction (Verified 05/26/16 07:55) Drowsy tamsulosin [From Flomax] Adverse Reaction (Verified 02/27/16 07:55) Gastrointestinal Upset Date of admission: 11/20/16 20:13 Primary care physician: Erica Meyer Discharging clinician: Adry Jones - Patient Status Disposition: Home, Self-Care Condition: Good - Discharge Instructions Follow Up With: Erica Bennett MD [Primary Care Provider] - 11/27/16 1:30 pm Cali Koenig [Non-Partnered Physician] - 12/01/16 - Diet and Activity Activity: resume usual activities as tolerated Diet: low fat, low cholesterol Hospital course: 86-year-old male recently admitted to the hospital for community-acquired pneumonia treated patient was discharged home. Had recurrent symptoms about one week ago treated as an outpatient with Levaquin and steroid aerosol treatment as an outpatient was mild improvement of his symptom patient came to the hospital for further evaluation. CT scan showed right lower lobe pneumonia. For possible healthcare district pneumonia patient was started on vancomycin and Zosyn, will continue to monitor the patient during hospitalization, marked improvement of patient's symptom. Patient was feeling back to his baseline. I discussed with patient and at bedside. Patient denies any chest pain any shortness of breath, patient denies any nausea vomiting. Patient denies any fever or chills. Patient discharged home in stable condition. On admission patient had uncontrolled blood sugars secondary to recent use of steroids. Last hemoglobin A1c was 8. Had volume depletion, Marked improvement of patient's symptom with the IV hydration. Patient needs to follow-up with family doctor may need a fear for pulmonary as an outpatient .For evaluation for recurrent pneumonia - Time Spent with Patient Total time spent providing and/or coordinating discharge services: Less than 30 minutes - Constitutional Vitals: Temp Pulse Resp BP Pulse Ox 98.0 F 68 16 149/75 93 L 11/24/16 11:29 11/24/16 11:29 11/24/16 11:29 11/24/16 11:29 11/24/16 11:29 General appearance: Present: A&O X 3, answers questions appropriately
[2016-11-24 14:27] LABS: Triiodothyronine (T3) Free 2.15 pg/mL (1.71-3.71)
[2016-11-24] MEDS ORDERED: Aminoglycoside Consult 1 EACH MC ONE (15:06)
== END 2016-11-24 15:07 | disposition home or self-care (01) | DRG 193 ==
LOC: EMEROO 16:08 → 3ANU 16:08
PROVIDERS: ADMIT Internal Medicine; ATTEND Internal Medicine

== ENCOUNTER 2017-09-13 17:39 | Inpatient (IN) ==
--- NOTE | 2017-09-13 18:07 | Emergency Department Note ---
Disposition Clinical Impression: Dizziness Syncope Qualifiers: Syncope type: unspecified Qualified Code(s): R55 - Syncope and collapse Fall Qualifiers: Encounter type: initial encounter Qualified Code(s): W19.XXXA - Unspecified fall, initial encounter Disposition: Admitted As Inpatient Condition: Undetermined Fall HPI - General Stated Complaint: SYNCOPE Time Seen by Provider: 09/13/17 17:42 Source: patient, family () Mode of arrival: ambulatory Limitations: no limitations Nursing Notes Reviewed: Yes Vital Signs Reviewed: Yes - History of Present Illness HPI Narrative: 86-year-old male history of a loop recorder on Plavix for known right vertebral artery occlusion presents to the ED for dizziness, syncope, and fall. This is his 2nd fall in the past 3 weeks. Last night states he was sitting in his chair we turned around got up and fell forward. He denies any prodromal symptoms such as chest pain, shortness of breath, nausea, vomiting or headache. She does not recall the events afterwards. His was in the kitchen and hurt aside and came to him. He appeared slightly confused. Since then he has been complaining of some right-sided neck pain. Denies any other complaints at this time such as confusion, chest pain, shortness of breath, abdominal pain, extremity pain. Since the fall 3 weeks ago he states the room has been spinning. He is on Plavix. During that incident he was sent to [facility] for further evaluation as he was unresponsive. Today he presents with similar complaints. Review of his [facility] medical records provided by showed that he had a right for tuber artery occlusion and some elevation to his troponin. CT of the head was unremarkable for bleed. He was discharged and has appointment with neurology September [address] Sky. Pt Subjective Complaint: fall - Related Data Home Medications Medication Instructions Recorded Confirmed ALPRAZolam [Xanax 0.25 MG Tablet] 0.5 mg PO HS 02/27/16 09/13/17 Atorvastatin [Lipitor] 10 mg PO HS 02/27/16 09/13/17 Clopidogrel [Plavix] 75 mg PO DAILY 02/27/16 09/13/17 Cyanocobalamin (B-12) [Vitamin B12] 1,000 mcg IM QMONTH 02/27/16 09/13/17 Gabapentin [Neurontin] 600 mg PO BID 02/27/16 09/13/17 Glimepiride [Amaryl] 2 - 4 mg PO QAM 02/27/16 09/13/17 Pramipexole [Mirapex] 0.25 mg PO HS 02/27/16 09/13/17 Ranitidine HCl [Zantac 75] 150 mg PO BID 02/27/16 09/13/17 Tamsulosin [Flomax] 0.4 mg PO BID 02/27/16 09/13/17 metFORMIN [Glucophage] 1,000 mg PO BID 02/27/16 09/13/17 Finasteride [Proscar] 5 mg PO HS 10/24/16 09/13/17 Amlodipine Besylate [Amlodipine 10 mg PO DAILY 09/13/17 09/13/17 Besylate] Allergies Allergy/AdvReac Type Severity Reaction Status Date / Time Sulfa (Sulfonamide Allergy Rash Verified 08/25/17 21:48 Antibiotics) carbidopa AdvReac Gastrointestinal Verified 08/25/17 21:48 Upset clonazepam AdvReac Gastrointestinal Verified 08/25/17 21:48 Upset clotrimazole AdvReac Gastrointestinal Verified 08/25/17 21:48 Upset fexofenadine [From Brandy] AdvReac Gastrointestinal Verified 08/25/17 21:48 Upset guaifenesin [From Robitussin] AdvReac Gastrointestinal Verified 08/25/17 21:48 Upset hydrochlorothiazide AdvReac Rash Verified 08/25/17 21:48 levodopa [From Sinemet] AdvReac Gastrointestinal Verified 08/25/17 21:48 Upset pioglitazone [From Actos] AdvReac Gastrointestinal Verified 08/25/17 21:48 Upset ropinirole [From Requip] AdvReac Gastrointestinal Verified 08/25/17 21:48 Upset sertraline [From Zoloft] AdvReac Drowsy Verified 08/25/17 21:48 tamsulosin [From Flomax] AdvReac Gastrointestinal Verified 08/25/17 21:48 Upset All systems ED: reviewed and negative except as stated. Review of Systems: As Per HPI Constitutional: Denies: fever, chills Eyes: Denies: eye pain, vision change ENT ED: Reports: other (Hard of hearing). Denies: congestion, dysphagia Cardiovascular: Denies: chest pain, dyspnea on exertion Respiratory: Denies: cough, dyspnea Gastrointestinal: Denies: abdominal pain, nausea, vomiting Genitourinary: Denies: urgency, dysuria Musculoskeletal: Reports: neck pain. Denies: back pain Integumentary: Reports: abrasion. Denies: rash, lesions Neurological: Reports: headache, vertigo. Denies: weakness, confusion Psychiatric: Denies: anxiety, depression Fall PMH - Past Medical History Medical history: Reports: arthritis, cardiomyopathy, diabetes, GERD, glaucoma, hyperlipidemia, hypertension, osteoporosis, peripheral artery disease, renal disease, syncope, valvular heart disease, other Surgical history: Reports: cholecystectomy, prostatectomy (Laser directed TURP.) , other (Colonoscopy.) Psychiatric history: Reports: anxiety - Social History Smoking Status: Never smoker Alcohol use: Reports: none Drug use: Reports: none Physical Exam - General Limitations: no limitations General appearance: alert, in no apparent distress - Head Head exam: atraumatic, normocephalic, normal inspection - Expanded Head Exam Head exam physicial: Present: abrasion (Left parietal, circular). Absent: laceration, contusion 1 - Abrasion - Eye Eye exam: Present: normal appearance, PERRL, EOMI - ENT ENT exam: normal exam, normal oropharynx, mucous membranes moist - Neck Neck exam: Present: normal inspection, trachea midline, tenderness, other ( Limited right rotation) - Expanded Neck Exam Neck exam focused ED: Present: paraspinal tenderness (Right). Absent: midline tenderness - Chest Chest inspection: Present: normal inspection, symmetric chest wall rise - Respiratory Respiratory exam: Present: normal lung sounds bilaterally. Absent: respiratory distress, wheezes - Cardiovascular Cardiovascular exam: Present: regular rate, normal rhythm, normal heart sounds. Absent: systolic murmur, diastolic murmur - Abdominal Exam Abdominal exam: Present: soft, Non-Tender, normal bowel sounds. Absent: tenderness, distention, guarding, rebound, rigidity - Extremities Exam Extremities exam: Present: normal inspection, full ROM, normal capillary refill. Absent: tenderness, pedal edema - Back Exam Back exam: Present: normal inspection, full ROM. Absent: tenderness, vertebral tenderness - Neurological Exam Neurological exam: Present: alert, oriented X3, CN II-XII intact - Expanded Neurological Exam Patient oriented to: Present: person, place, time Speech: Present: fluid speech Cranial nerves: EOM function (II, III, IV, ): Normal, facial sensation (V): Normal, facial palsy (VII): Normal, gag reflex (IX): Normal, spinal accessory function (XI): Normal, tongue deviation (XII): Normal Motor strength - LUE: 5/5 Motor strength - RUE: 5/5 Motor strength - LLE: 5/5 Motor strength - RLE: 5/5 Upper motor neuron exam: dayday neglect: Absent bilaterally Sensory exam upper extremity: light touch: Normal Sensory exam lower extremity: light touch: Normal Coma Scale Eye Opening: Spontaneous Coma Scale Motor Response: Obeys Commands Coma Scale Verbal Response: Oriented Coma Scale Total: 15 - Skin Skin exam: Present: warm, dry, intact, normal color. Absent: rash, diaphoresis - Expanded Skin Exam Type of lesion: Present: abrasion Distribution: head Course Course Narrative: 86-year-old male presents with frequent fall and dizziness. Has a known vertebral occlusion from 2 years ago. She has a box bender here Dr. Velasquez. On exam he appears in no acute distress. No midline tenderness. Neurologic exam is normal without any focal neural deficits. No nystagmus seen on examination. Will obtain a MRI of the brain and neck due to his dizziness to evaluate for central vertigo. Patient will be signed out to nighttime physicians Dr. Guzman and Dr. Chacon pending images and reevaluation. Suspect this patient will benefit from admission into his persistent symptoms. Vital Signs Temperature 97.7 F 09/13/17 17:52 Pulse Rate 64 09/13/17 17:52 Respiratory Rate 16 09/13/17 17:52 Blood Pressure 179/79 09/13/17 17:52 O2 Sat by Pulse Oximetry 93 09/13/17 17:52 Temperature 97.8 F 09/15/17 06:45 Pulse Rate 63 09/15/17 06:45 Respiratory Rate 15 09/15/17 06:45 Blood Pressure 166/83 09/15/17 06:45 O2 Sat by Pulse Oximetry 91 09/15/17 06:45 Oxygen Delivery Oxygen Delivery Room Air Fall - [facility] Narrative Medical decision making narrative: Patient was discussed with my attending physician who agrees with ED management and final disposition. They independently evaluated the patient. Please refer to their attestation to this encounter for additional information. This note was generated by [employer] voice recognition software and as a result grammatical or spelling errors may occur using this program. - Differential Diagnosis Likely: syncope, traumatic injury, seizure - Medical Records Medical records reviewed: Yes I reviewed the patient's medical records. - Lab Data Lab results reviewed: Yes I reviewed the patient's lab results. Result diagrams: 09/15/17 05:16 09/15/17 05:16 Lab Results 09/13/17 09/13/17 09/13/17 Range/Units 17:55 17:55 17:55 WBC 6.3 (4.3-11.1) K/mcL RBC 4.35 (4.19-5.50) M/mcL Hgb 14.4 (12.9-16.9) g/dL Hct 42.2 (37.5-50.1) % MCV 97.0 (83.0-100.0) fL MCH 33.1 (28.0-33.3) pg MCHC 34.1 (31.6-35.5) g/dL RDW 13.2 (11.5-14.5) % Plt Count 196 (140-400) K/mcL MPV 9.2 L (9.4-12.4) fL Immature Gran % 0.2 (0-4) % Seg Neutrophils % 71.9 % Lymphocytes % 16.2 % Monocytes % 6.5 % Eosinophils % 4.6 % Basophils % 0.6 % Neutrophils # 4.6 (1.6-8.9) K/mcL Lymphocytes # 1.0 (0.6-4.6) K/mcL Monocytes # 0.4 (0.0-1.3) K/mcL Eosinophils # 0.3 (0.0-0.6) K/mcL Basophils # 0.0 (0.0-0.2) K/mcL PT 10.1 (9.4-12.1) Seconds INR 0.9 APTT 28.2 (26.0-36.0) Seconds Sodium 141 (136-145) mEq/L Potassium 4.4 (3.5-4.5) mEq/L Chloride 103 (98-109) mEq/L Carbon Dioxide 31 H (19-29) mEq/L BUN 21 (8-26) mg/dL Creatinine 1.22 (0.72-1.25) mg/dL Est GFR ( Amer) > 60 (> 60) Est GFR (Non-Af Amer) 56 L (> 60) BUN/Creatinine Ratio 17 (6-26) Glucose 187 H (70-99) mg/dL POC Glucose (58-89) Calculated Osmolality 300 (280-300) Calcium 9.7 (8.6-10.8) mg/dL Troponin I (0-0.03) ng/mL Urine Color (Yellow) Urine Clarity (Clear) Urine pH (5.0-8.0) pH Units Ur Specific [place] (1.010-1.025) Urine Protein (Neg-Trace) mg/dL Urine Glucose (UA) (Normal) mg/dL Urine Ketones (Negative) mg/dL Urine Blood (Negative) Urine Nitrite (Negative) Urine Bilirubin (Negative) Urine Urobilinogen (Normal) mg/dL Ur Leukocyte Esterase (Negative) Urine Microscopic RBC (0-3) per hpf Urine Microscopic WBC (0-3) per hpf Ur Squamous Epith Cells (None-Few) per lpf Urine Bacteria (None-Few) per hpf Hyaline Casts (None-Few) per lpf Ur Culture Indicated? (NO) 09/13/17 09/13/17 09/13/17 Range/Units 17:55 19:44 23:21 WBC (4.3-11.1) K/mcL RBC (4.19-5.50) M/mcL Hgb (12.9-16.9) g/dL Hct (37.5-50.1) % MCV (83.0-100.0) fL MCH (28.0-33.3) pg MCHC (31.6-35.5) g/dL RDW (11.5-14.5) % Plt Count (140-400) K/mcL MPV (9.4-12.4) fL Immature Gran % (0-4) % Seg Neutrophils % % Lymphocytes % % Monocytes % % Eosinophils % % Basophils % % Neutrophils # (1.6-8.9) K/mcL Lymphocytes # (0.6-4.6) K/mcL Monocytes # (0.0-1.3) K/mcL Eosinophils # (0.0-0.6) K/mcL Basophils # (0.0-0.2) K/mcL PT (9.4-12.1) Seconds INR APTT (26.0-36.0) Seconds Sodium (136-145) mEq/L Potassium (3.5-4.5) mEq/L Chloride (98-109) mEq/L Carbon Dioxide (19-29) mEq/L BUN (8-26) mg/dL Creatinine (0.72-1.25) mg/dL Est GFR ( Amer) (> 60) Est GFR (Non-Af Amer) (> 60) BUN/Creatinine Ratio (6-26) Glucose (70-99) mg/dL POC Glucose 270 H (58-89) Calculated Osmolality (280-300) Calcium (8.6-10.8) mg/dL Troponin I 0.01 (0-0.03) ng/mL Urine Color Yellow (Yellow) Urine Clarity Clear (Clear) Urine pH 7.0 (5.0-8.0) pH Units Ur Specific [place] 1.013 (1.010-1.025) Urine Protein 30 H (Neg-Trace) mg/dL Urine Glucose (UA) 100 H (Normal) mg/dL Urine Ketones Negative (Negative) mg/dL Urine Blood Negative (Negative) Urine Nitrite Negative (Negative) Urine Bilirubin Negative (Negative) Urine Urobilinogen Normal (Normal) mg/dL Ur Leukocyte Esterase Negative (Negative) Urine Microscopic RBC 0-3 (0-3) per hpf Urine Microscopic WBC 0-3 (0-3) per hpf Ur Squamous Epith Cells Moderate H (None-Few) per lpf Urine Bacteria None Seen (None-Few) per hpf Hyaline Casts None Seen (None-Few) per lpf Ur Culture Indicated? NO (NO) - EKG Data EKG attestation: Yes I reviewed and interpreted this EKG. EKG results narrative: EKG performed 1746 normal sinus rhythm 62 bpm, prolonged VA interval 307, left axis deviation with left bundle branch block, no Sgarbossa criteria. Compared to old EKG performed 08/25/2017 shows old left bundle branch block no acute ischemic changes. S.B.AMarly. - S.B.A.R. Situation: Demographics, MOA Background: Presenting Complaint, Relevant PMH, Meds, & Allergies Assessment: Vital Signs, Course and respsone to treatment, Exam Concerns, Patient/Family Expectation, Pertinant Lab Results, Outstanding Labs Recommendation: Barrier(s) to disposition, Recommendation based on pending studies, treatments, or consults S.B.A.R. Report Given to: Anthony Jones Repor Time: 19:01 Attestation Statement - Attestation Attestation: I examined this patient and my medical decision-making was reviewed with the Resident Physician. I agree with the documented findings, disposition and treatment plan as described except to the extent set forth below. Patient presents to the ED with a chief complaint of dizziness. Patient states he has not felt well for a couple weeks. He was evaluated here at the end of August after a fall. Patient apparently hit his head and was unconscious. He was transferred to [place] and had a negative workup there. Per patient and his is continued have dizziness. He is falling. On examination he has horizontal nystagmus to both sides. Otherwise neurologically intact. Moves all extremities. Awake alert and oriented. Cranial nerves intact. Plan. Patient has a history of a vertebral artery blockage. This has not been evaluated for couple years. Will check MRI head with MRA head and neck. Will be signed out to night supervisor pending these results along with cardiac workup.
[2017-09-13 18:12] LABS: Basophils % 0.6 %; Eosinophils # 0.3 K/mcL (0.0-0.6); Eosinophils % 4.6 %; Hematocrit 42.2 % (37.5-50.1); Hemoglobin 14.4 g/dL (12.9-16.9); Immature Granulocytes % 0.2 % (0-4); Lymphocytes % 16.2 %; Mean Corpuscular HGB Conc 34.1 g/dL (31.6-35.5); Mean Corpuscular Hemoglobin 33.1 pg (28.0-33.3); Mean Platelet Volume 9.2 fL (9.4-12.4); Monocytes # 0.4 K/mcL (0.0-1.3); Monocytes % 6.5 %; Neutrophils # 4.6 K/mcL (1.6-8.9); Platelet Count 196 K/mcL (140-400); Red Blood Count 4.35 M/mcL (4.19-5.50); Red Cell Distribution Width 13.2 % (11.5-14.5); Segmented Neutrophils % 71.9 %
[2017-09-13 18:24] LABS: INR 0.9; Prothrombin Time 10.1 Seconds (9.4-12.1)
[2017-09-13 18:26] LABS: Activated Partial Thrombo Time 28.2 Seconds (26.0-36.0)
[2017-09-13 18:27] LABS: BUN/Creatinine Ratio 17 (6-26); Blood Urea Nitrogen 21 mg/dL (8-26); Calcium 9.7 mg/dL (8.6-10.8); Carbon Dioxide 31 mEq/L (19-29); Chloride 103 mEq/L (98-109); Glucose 187 mg/dL (70-99); Osmolality,Calculated 300 (280-300); Potassium 4.4 mEq/L (3.5-4.5); Sodium 141 mEq/L (136-145); eGFR For African Americans > 60 (> 60); eGFR For Non-African Americans 56 (> 60)
[2017-09-13 19:54] LABS: Bilirubin,Urine Negative (Negative); Blood,Urine Negative (Negative); Clarity,Urine Clear (Clear); Color,Urine Yellow (Yellow); Glucose,Urine (UA) 100 mg/dL (Normal); Ketones,Urine Negative (Negative); Leukocyte Esterase,Urine Negative (Negative); Nitrite,Urine Negative (Negative); Protein,Urine 30 mg/dL (Neg-Trace); Specific Gravity,Urine 1.013 (1.010-1.025); Urobilinogen,Urine Normal (Normal)
[2017-09-13 19:55] LABS: Bacteria,Urine None Seen per hpf (None-Few); Hyaline Casts,Urine None Seen per lpf (None-Few); RBC,Urine 0-3 per hpf (0-3); Squamous Epithelial Cell,Urine Moderate per lpf (None-Few); WBC,Urine 0-3 per hpf (0-3)
--- NOTE | 2017-09-13 21:10 | Emergency Department Note ---
Disposition Clinical Impression: Dizziness Syncope Qualifiers: Syncope type: unspecified Qualified Code(s): R55 - Syncope and collapse Fall Qualifiers: Encounter type: initial encounter Qualified Code(s): W19.XXXA - Unspecified fall, initial encounter Disposition: Admitted As Inpatient Condition: Undetermined Referrals: Erica Bennett MD [Primary Care Provider] - Time of Disposition: 21:35 Syncope HPI - General Chief Complaint: ED Syncope Stated Complaint: SYNCOPE Time Seen by Provider: 09/13/17 17:42 Source: patient, family () Mode of arrival: ambulatory Limitations: no limitations Nursing Notes Reviewed: Yes Vital Signs Reviewed: Yes - History of Present Illness HPI Narrative: 86-year-old male who was a signout from the day team arrives to the emergency department after having a syncopal/falling episode just prior to arrival. The patient had an episode roughly 2 weeks ago when the patient was transported to [facility]. He was admitted there but did not receive a workup with regards to this. The patient states that he is continued experiencing intermittent episodes of dizziness. 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 MRI of the patient's head and neck here at [facility] emergency department today demonstrate no acute process. The patient's lab work or is otherwise unremarkable. The patient does take Plavix and I am concerned about the patient's continued falling that has been intermittent. After speaking with the patient's she is also concerned, we will admit the patient to the hospitalist with likely admission to a rehabilitation facility. The patient was made aware as well as the and agrees to plan. 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 Duration: second(s) Prodromal Symptoms: lightheaded Witnessed: yes - by other () Context: at rest Injuries Sustained Associated with Event: none Current Symptoms: back to baseline History: none Treatments prior to arrival: none Associated trauma secondary to event: No - Related Data Home Medications Medication Instructions Recorded Confirmed ALPRAZolam [Xanax 0.25 MG Tablet] 0.5 mg PO BID 02/27/16 11/20/16 Atorvastatin [Lipitor] 10 mg PO QPM 02/27/16 11/20/16 Clopidogrel [Plavix] 75 mg PO DAILY 02/27/16 11/20/16 Cyanocobalamin (B-12) [Vitamin B12] 1,000 mcg IM QMONTH 02/27/16 11/20/16 Gabapentin [Neurontin] 600 mg PO BID 02/27/16 11/20/16 Glimepiride [Amaryl] 4 mg PO DAILY 02/27/16 11/20/16 Pramipexole [Mirapex] 0.25 mg PO DAILY 02/27/16 11/20/16 Ranitidine HCl [Zantac 75] 150 mg PO BID 02/27/16 11/20/16 Tamsulosin [Flomax] 0.4 mg PO BID 02/27/16 11/20/16 metFORMIN [Glucophage] 1,000 mg PO BID 02/27/16 11/20/16 Finasteride [Proscar] 5 mg PO HS 10/24/16 11/20/16 Previous Rx's Medication Instructions Recorded Amoxicillin/Clavulanate [Augmentin] 875 mg PO BIDWM #10 tablet 11/24/16 Docusate [Colace] 100 mg PO BID PRN #60 capsule 11/24/16 Ergocalciferol (VITAMIN D2) 50,000 unit PO QWEEK #15 capsule 11/24/16 [Drisdol (50,000 Unit)] Ferrous Sulfate 325 mg PO DAILY #90 tablet.dr 11/24/16 Isosorbide DInitrate [Isordil] 5 mg PO TIDAC #90 tablet 11/24/16 Polyethylene Glycol 3350 [MiraLAX] 17 gm PO DAILY #30 powd.pack 11/24/16 Sennosides/Docusate Sodium [Senna 1 each PO BID PRN #60 tablet 11/24/16 Plus] hydrALAZINE [HydrALAZINE] 25 mg PO TIDAC #90 tablet 11/24/16 Allergies Allergy/AdvReac Type Severity Reaction Status Date / Time Sulfa (Sulfonamide Allergy Rash Verified 08/25/17 21:48 Antibiotics) carbidopa AdvReac Gastrointestinal Verified 08/25/17 21:48 Upset clonazepam AdvReac Gastrointestinal Verified 08/25/17 21:48 Upset clotrimazole AdvReac Gastrointestinal Verified 08/25/17 21:48 Upset fexofenadine [From Branyd] AdvReac Gastrointestinal Verified 08/25/17 21:48 Upset guaifenesin [From Robitussin] AdvReac Gastrointestinal Verified 08/25/17 21:48 Upset hydrochlorothiazide AdvReac Rash Verified 08/25/17 21:48 levodopa [From Sinemet] AdvReac Gastrointestinal Verified 08/25/17 21:48 Upset pioglitazone [From Actos] AdvReac Gastrointestinal Verified 08/25/17 21:48 Upset ropinirole [From Requip] AdvReac Gastrointestinal Verified 08/25/17 21:48 Upset sertraline [From Zoloft] AdvReac Drowsy Verified 08/25/17 21:48 tamsulosin [From Flomax] AdvReac Gastrointestinal Verified 08/25/17 21:48 Upset All systems ED: reviewed and negative except as stated. Constitutional: Denies: fever, chills Eyes: Denies: eye pain, vision change ENT ED: Reports: other (Hard of hearing). Denies: congestion, dysphagia Cardiovascular: Denies: chest pain, dyspnea on exertion Respiratory: Denies: cough, dyspnea Gastrointestinal: Denies: abdominal pain, nausea, vomiting Genitourinary: Denies: urgency, dysuria Musculoskeletal: Reports: neck pain. Denies: back pain Integumentary: Reports: abrasion. Denies: rash, lesions Neurological: Reports: headache, vertigo. Denies: weakness, confusion Psychiatric: Denies: anxiety, depression Past Medical History - Past Medical History Attestation: Yes The following information was validated with the patient. Source: patient, obtained from family Medical history: Reports: arthritis, cardiomyopathy, diabetes, GERD, glaucoma, hyperlipidemia, hypertension, osteoporosis, peripheral artery disease, renal disease, syncope, valvular heart disease, other Surgical history: Reports: cholecystectomy, prostatectomy (Laser directed TURP.) , other (Colonoscopy.) Psychiatric history: Reports: anxiety - Social History Smoking Status: Never smoker Smokeless Tobacco Status: No Alcohol use: Reports: none Drug use: Reports: none Physical Exam - General Limitations: no limitations General appearance: alert, in no apparent distress - Head Head exam: atraumatic, normocephalic, normal inspection - Eye Eye exam: Present: normal appearance, PERRL, EOMI - ENT ENT exam: normal exam, normal oropharynx, mucous membranes moist - Neck Neck exam: Present: normal inspection, full ROM, trachea midline - Chest Chest inspection: Present: normal inspection, symmetric chest wall rise - Respiratory Respiratory exam: Present: normal lung sounds bilaterally - Cardiovascular Cardiovascular exam: Present: regular rate, normal rhythm, normal heart sounds - Abdominal Exam Abdominal exam: Present: soft, Non-Tender. Absent: tenderness, distention, guarding, rebound, rigidity - Extremities Exam Extremities exam: Present: normal inspection, full ROM. Absent: tenderness, pedal edema - Neurological Exam Neurological exam: Present: alert, oriented X3, CN II-XII intact - Skin Skin exam: Present: warm, dry, intact, normal color Course Vital Signs Temperature 97.7 F 09/13/17 17:52 Pulse Rate 64 09/13/17 17:52 Respiratory Rate 16 09/13/17 17:52 Blood Pressure 179/79 09/13/17 17:52 O2 Sat by Pulse Oximetry 93 09/13/17 17:52 Temperature 97.7 F 09/13/17 17:52 Pulse Rate 54 09/13/17 20:48 Respiratory Rate 14 09/13/17 20:48 Blood Pressure 168/66 09/13/17 20:48 O2 Sat by Pulse Oximetry 96 09/13/17 20:48 Oxygen Delivery Oxygen Delivery Room Air Syncope - MDM Narrative Medical decision making narrative: Patient accepted to the hospitalist, Dr. Tanner. - Lab Data Lab results reviewed: Yes I reviewed the patient's lab results. Result diagrams: 09/13/17 17:55 09/13/17 17:55 Lab Results 09/13/17 09/13/17 09/13/17 Range/Units 17:55 17:55 17:55 WBC 6.3 (4.3-11.1) K/mcL RBC 4.35 (4.19-5.50) M/mcL Hgb 14.4 (12.9-16.9) g/dL Hct 42.2 (37.5-50.1) % MCV 97.0 (83.0-100.0) fL MCH 33.1 (28.0-33.3) pg MCHC 34.1 (31.6-35.5) g/dL RDW 13.2 (11.5-14.5) % Plt Count 196 (140-400) K/mcL MPV 9.2 L (9.4-12.4) fL Immature Gran % 0.2 (0-4) % Seg Neutrophils % 71.9 % Lymphocytes % 16.2 % Monocytes % 6.5 % Eosinophils % 4.6 % Basophils % 0.6 % Neutrophils # 4.6 (1.6-8.9) K/mcL Lymphocytes # 1.0 (0.6-4.6) K/mcL Monocytes # 0.4 (0.0-1.3) K/mcL Eosinophils # 0.3 (0.0-0.6) K/mcL Basophils # 0.0 (0.0-0.2) K/mcL PT 10.1 (9.4-12.1) Seconds INR 0.9 APTT 28.2 (26.0-36.0) Seconds Sodium 141 (136-145) mEq/L Potassium 4.4 (3.5-4.5) mEq/L Chloride 103 (98-109) mEq/L Carbon Dioxide 31 H (19-29) mEq/L BUN 21 (8-26) mg/dL Creatinine 1.22 (0.72-1.25) mg/dL Est GFR ( Amer) > 60 (> 60) Est GFR (Non-Af Amer) 56 L (> 60) BUN/Creatinine Ratio 17 (6-26) Glucose 187 H (70-99) mg/dL Calculated Osmolality 300 (280-300) Calcium 9.7 (8.6-10.8) mg/dL Troponin I (0-0.03) ng/mL Urine Color (Yellow) Urine Clarity (Clear) Urine pH (5.0-8.0) pH Units Ur Specific Donie (1.010-1.025) Urine Protein (Neg-Trace) mg/dL Urine Glucose (UA) (Normal) mg/dL Urine Ketones (Negative) mg/dL Urine Blood (Negative) Urine Nitrite (Negative) Urine Bilirubin (Negative) Urine Urobilinogen (Normal) mg/dL Ur Leukocyte Esterase (Negative) Urine Microscopic RBC (0-3) per hpf Urine Microscopic WBC (0-3) per hpf Ur Squamous Epith Cells (None-Few) per lpf Urine Bacteria (None-Few) per hpf Hyaline Casts (None-Few) per lpf Ur Culture Indicated? (NO) 09/13/17 09/13/17 Range/Units 17:55 19:44 WBC (4.3-11.1) K/mcL RBC (4.19-5.50) M/mcL Hgb (12.9-16.9) g/dL Hct (37.5-50.1) % MCV (83.0-100.0) fL MCH (28.0-33.3) pg MCHC (31.6-35.5) g/dL RDW (11.5-14.5) % Plt Count (140-400) K/mcL MPV (9.4-12.4) fL Immature Gran % (0-4) % Seg Neutrophils % % Lymphocytes % % Monocytes % % Eosinophils % % Basophils % % Neutrophils # (1.6-8.9) K/mcL Lymphocytes # (0.6-4.6) K/mcL Monocytes # (0.0-1.3) K/mcL Eosinophils # (0.0-0.6) K/mcL Basophils # (0.0-0.2) K/mcL PT (9.4-12.1) Seconds INR APTT (26.0-36.0) Seconds Sodium (136-145) mEq/L Potassium (3.5-4.5) mEq/L Chloride (98-109) mEq/L Carbon Dioxide (19-29) mEq/L BUN (8-26) mg/dL Creatinine (0.72-1.25) mg/dL Est GFR ( Amer) (> 60) Est GFR (Non-Af Amer) (> 60) BUN/Creatinine Ratio (6-26) Glucose (70-99) mg/dL Calculated Osmolality (280-300) Calcium (8.6-10.8) mg/dL Troponin I 0.01 (0-0.03) ng/mL Urine Color Yellow (Yellow) Urine Clarity Clear (Clear) Urine pH 7.0 (5.0-8.0) pH Units Ur Specific Donie 1.013 (1.010-1.025) Urine Protein 30 H (Neg-Trace) mg/dL Urine Glucose (UA) 100 H (Normal) mg/dL Urine Ketones Negative (Negative) mg/dL Urine Blood Negative (Negative) Urine Nitrite Negative (Negative) Urine Bilirubin Negative (Negative) Urine Urobilinogen Normal (Normal) mg/dL Ur Leukocyte Esterase Negative (Negative) Urine Microscopic RBC 0-3 (0-3) per hpf Urine Microscopic WBC 0-3 (0-3) per hpf Ur Squamous Epith Cells Moderate H (None-Few) per lpf Urine Bacteria None Seen (None-Few) per hpf Hyaline Casts None Seen (None-Few) per lpf Ur Culture Indicated? NO (NO) - Radiology Data Radiology results reviewed: Yes I reviewed the patient's radiology results.
[2017-09-14] MEDS ORDERED: Naloxone 0.4 MG/ML INJ IVP PRN (01:01)
[2017-09-14] MEDS ORDERED: Acetaminophen 325 MG TABLET PO PRN (01:01)
[2017-09-14] MEDS ORDERED: Aspirin 81 MG TAB.CHEW PO ONE (01:05)
--- NOTE | 2017-09-14 01:08 | Internal Med History&Physical ---
Date of Encounter: 09/14/17 Time of Encounter: 00:45 Assessment and Plan (1) Syncope Current visit: Yes Status: Acute Syncope with fall and contusion to head - possibly due to arrhythmias and possible deconditioning - with history of right vertebral artery occlusion Continue Plavix, Lipitor Chest x-ray - cardiomegaly MRI brain - subacute infarct and left corpus callosum, no evidence of acute infarct, chronic ischemic changes MRA head - no significant flow related enhancement in the right vertebral artery , otherwise unremarkable MRA neck - occlusion of the right vertebral artery, mild to moderate focal stenosis in the left foot artery EKG - sinus rhythm with no acute ST-T changes Troponin - 0.01 Echocardiogram - pending PT/OT consult to orthostatic vitals Cardiac telemetry, labs in a.m., monitor closely Qualifiers: Syncope type: unspecified Qualified Code(s): R55 - Syncope and collapse (2) Frequent falls Current visit: Yes Status: Acute Patient presents with complaints of frequent falls with syncope - possibly due to arrhythmias and possibly deconditioning PT/OT consult Plan as above (3) Vertebral artery disease Current visit: Yes Status: Chronic Chronic vertebral artery disease/occlusion Continue Plavix, Lipitor (4) Essential hypertension Current visit: Yes Status: Chronic Essential hypertension, controlled, monitor Continue home dose of Norvasc (5) Diabetes mellitus Current visit: Yes Status: Chronic Type 2 diabetes mellitus, [id number], hyperglycemia Continue insulin sliding scale, glucose checks Qualifiers: Diabetes mellitus type: type 2 Diabetes mellitus complication status: with hyperglycemia Diabetes mellitus penitentiary insulin use: without longitudinal float operator use Qualified Code(s): E11.65 - Type 2 diabetes mellitus with hyperglycemia (6) DVT prophylaxis Current visit: Yes Status: Acute Heparin subcutaneous Internal Medicine - H&P: HPI Chief complaint: Syncope, fall Admitted From: Emergency Dept Plans for Post Hospital Care: Home History of present illness: Mr. Crowder is a 86 year old male with past medical history of cardiomyopathy, diabetes, peripheral vascular disease, renal disease, hyperlipidemia, hypertension, GERD, vertebral artery occlusion and anxiety. Examined in the room. Patient is awake and alert. Not in any distress. Able to provide history. He is hard of hearing. No family members at bedside. Patient states he had a fall earlier today. He seems to have had a syncopal episode. Patient seems to fall backwards and has injured his head. Patient complains of pain in the back of his head and also right-sided neck pain. He denies chest pain or shortness of breath. He was initially confused when he came in, but now seems back to baseline. Denies fever or dizziness or abdominal pain or vomiting. No aggravating or alleviating factors. No other associated symptoms. No other acute complaints at this time. Patient did have a fall about 3 weeks ago and was taken to [facility]. Patient does have a history of vertebral artery occlusion at the time. He is on Plavix and statin. Initial workup in the ED revealed a subacute lacunar infarct of the corpus callosum. No evidence of acute infarct. MRA of the head and neck revealed occlusion of right vertebral artery, otherwise unremarkable. EKG shows normal sinus rhythm with no acute ST-T changes. Troponin is negative. Patient is being admitted for syncope and frequent falls. He will need echocardiogram. Patient has been explained about his condition and plan of care in detail. He understood and agreed. No unanswered questions. CODE STATUS full code. Past Med Surg Social Fam HX - Past Medical History Medical history: arthritis, cardiomyopathy, diabetes, GERD, glaucoma, hyperlipidemia, hypertension, osteoporosis, peripheral artery disease, renal disease, syncope, valvular heart disease, other Psychiatric history: anxiety - Past Surgical History Surgical History: cholecystectomy, other - Social History Smoking Status: Never smoker Smokeless Tobacco Status: No Alcohol use: none Drug use: none - Family History Son Hx Family Cancer: Yes Mother Living Status: Age at : 93 Cause of : natural causes Father Living Status: Age at : 82 Hx Family Neurologic Disorders: Yes (Parkinsons) Internal Medicine - H&P: Meds ALPRAZolam [Xanax 0.25 MG Tablet] 0.5 mg PO HS 02/27/16 [History] Atorvastatin [Lipitor] 10 mg PO HS 02/27/16 [History] Clopidogrel [Plavix] 75 mg PO DAILY 02/27/16 [History] Cyanocobalamin (B-12) [Vitamin B12] 1,000 mcg IM QMONTH 02/27/16 [History] Gabapentin [Neurontin] 600 mg PO BID 02/27/16 [History] Glimepiride [Amaryl] 2 - 4 mg PO QAM 02/27/16 [History] Pramipexole [Mirapex] 0.25 mg PO HS 02/27/16 [History] Ranitidine HCl [Zantac 75] 150 mg PO BID 02/27/16 [History] Tamsulosin [Flomax] 0.4 mg PO BID 02/27/16 [History] metFORMIN [Glucophage] 1,000 mg PO BID 02/27/16 [History] Finasteride [Proscar] 5 mg PO HS 10/24/16 [History] Amlodipine Besylate [Amlodipine Besylate] 10 mg PO DAILY 09/13/17 [History] 3 Allergy/AdvReac Type Severity Reaction Status Date / Time Sulfa (Sulfonamide Allergy Rash Verified 08/25/17 21:48 Antibiotics) carbidopa AdvReac Gastrointestinal Verified 08/25/17 21:48 Upset clonazepam AdvReac Gastrointestinal Verified 08/25/17 21:48 Upset clotrimazole AdvReac Gastrointestinal Verified 08/25/17 21:48 Upset fexofenadine [From Brandy] AdvReac Gastrointestinal Verified 08/25/17 21:48 Upset guaifenesin [From Robitussin] AdvReac Gastrointestinal Verified 08/25/17 21:48 Upset hydrochlorothiazide AdvReac Rash Verified 08/25/17 21:48 levodopa [From Sinemet] AdvReac Gastrointestinal Verified 08/25/17 21:48 Upset pioglitazone [From Actos] AdvReac Gastrointestinal Verified 08/25/17 21:48 Upset ropinirole [From Requip] AdvReac Gastrointestinal Verified 08/25/17 21:48 Upset sertraline [From Zoloft] AdvReac Drowsy Verified 08/25/17 21:48 tamsulosin [From Flomax] AdvReac Gastrointestinal Verified 08/25/17 21:48 Upset All Systems PM: A 10-system review of systems was performed and is negative for pertinent findings except as documented above in the HPI. - Constitutional Constitutional: fatigue, falls, weakness, no fever(s) - EENT Eyes: no blurry vision, no change in vision Nose, mouth and throat: no dry mouth - Cardiovascular Cardiovascular ROS IM: syncope, no chest pain, no diaphoresis, no dyspnea, no dyspnea on exertion, no edema, no lightheadedness, no orthopnea, no palpitations - Respiratory Respiratory: no cough, no dyspnea, no hemoptysis, no dyspnea on exertion, no wheezing, no chest congestion - Gastrointestinal Gastrointestinal: no abdominal pain, no bloating, no cramping, no diarrhea, no hematemesis, no hematochezia, no loose stools, no melena, no nausea, no vomiting - Genitourinary Genitourinary ROS male: no dysuria - Musculoskeletal Musculoskeletal ROS IM: no back pain - Neurological Neurological ROS: dizziness, frequent falls, no abnormal gait, no abnormal movements, no abnormal speech, no confusion, no convulsions, no disequilibrium, no loss of vision, no numbness, no tingling - Constitutional Vitals: Temp Pulse Resp BP Pulse Ox 97.5 F L 59 18 153/72 95 09/13/17 23:18 09/13/17 23:18 09/13/17 23:18 09/13/17 23:18 09/13/17 23:18 General appearance: Present: cooperative, A&O X 3, pleasant, no acute distress, answers questions appropriately Exam: Patient is hard of hearing. Awake and alert. Able to answer all questions appropriately. - Head Additional comments: Contusion over her left parieto-occipital region - Eye Eye exam: Present: EOMI - ENT ENT exam: Present: mucous membranes dry - Respiratory Respiratory exam: Present: CTAB. Absent: accessory muscle use, rales, respiratory distress, rhonchi, wheezes, tachypnea - Cardiovascular Cardiovascular exam: Present: RRR, +S1, +S2 - GI/Abdominal GI/Abdominal exam: Present: soft. Absent: distended, firm, guarding, tenderness - Extremities Exam Extremities exam: Present: radial pulses palpable and symmetrical. Absent: calf tenderness, cyanotic, pedal edema - Neurological Exam Neurological exam: Present: alert, CN II-XII intact, oriented X3, no focal deficits. Absent: facial droop, speech deficit Internal Med - H&P Results - Labs CBC & Chem 7: 09/14/17 04:16 09/13/17 17:55
[2017-09-14] MEDS ORDERED: *HR* Dextrose 50 % in Water (Syg) 50 ML SYRINGE IVP PRN (01:16)
[2017-09-14] MEDS ORDERED: Dextrose Gel 15 GM PO PRN ×2 (01:16)
[2017-09-14] MEDS ORDERED: D5% in Water 1,000 ML IVC PRN (01:16)
[2017-09-14] MEDS: 0.9 % Sodium Chloride 1,000 ML IVC SCH (01:54)
[2017-09-14 05:22] LABS: Basophils % 0.6 %; Eosinophils # 0.2 K/mcL (0.0-0.6); Eosinophils % 4.6 %; Immature Granulocytes % 0.2 % (0-4); Lymphocytes # 1.2 K/mcL (0.6-4.6); Lymphocytes % 23.1 %; Mean Corpuscular HGB Conc 34.7 g/dL (31.6-35.5); Mean Corpuscular Hemoglobin 33.5 pg (28.0-33.3); Mean Corpuscular Volume 96.5 fL (83.0-100.0); Mean Platelet Volume 9.4 fL (9.4-12.4); Monocytes # 0.4 K/mcL (0.0-1.3); Monocytes % 8.2 %; Neutrophils # 3.1 K/mcL (1.6-8.9); Platelet Count 163 K/mcL (140-400); Red Blood Count 3.73 M/mcL (4.19-5.50); Red Cell Distribution Width 13.1 % (11.5-14.5); Segmented Neutrophils % 63.3 %
[2017-09-14 05:28] LABS: Hemoglobin 12.5 g/dL (12.9-16.9)
[2017-09-14 05:51] LABS: Chol/HDL Ratio 2.4 (0-4.9); Magnesium 1.5 mg/dL (1.6-2.6)
[2017-09-14 05:53] LABS: BUN/Creatinine Ratio 20 (6-26); Blood Urea Nitrogen 21 mg/dL (8-26); Calcium 8.6 mg/dL (8.6-10.8); Carbon Dioxide 29 mEq/L (19-29); Chloride 107 mEq/L (98-109); Glucose 131 mg/dL (70-99); Osmolality,Calculated 301 (280-300); Sodium 143 mEq/L (136-145); eGFR For African Americans > 60 (> 60); eGFR For Non-African Americans > 60 (> 60)
[2017-09-14] MEDS: *HR* Heparin 5,000 UNIT/ML VIAL SQ SCH ×2 (06:46→18:14)
[2017-09-14] MEDS: Insulin LISPRO 300 UNITS/3 ML VIAL SQ SCH ×4 (07:18→20:55)
[2017-09-14] MEDS ORDERED: Famotidine 20 MG TABLET PO SCH (09:00)
[2017-09-14] MEDS: Gabapentin 300 MG CAPSULE PO SCH ×2 (09:37→21:03)
[2017-09-14] MEDS: amLODIPine 5 MG TABLET PO SCH (09:38)
--- NOTE | 2017-09-14 12:02 | Event Note ---
Date of Encounter: 09/14/17 Time of Encounter: 12:02 Patient seen and evaluated at bedside HE is admitted following a fall, as per patient's , he did not have syncope , he was awake at time of fall, and awake when she went to attend t him He did sustain a Left parietal scalp injury Work up on admission negative They are refusing in-patient rehab, regardless of PTOT eval PTOT eval is pending Physical exam is unremarkable Orthostats are positive, continue gentle hydration Continue telemetry High fall risk
--- NOTE | 2017-09-14 17:49 | Electrocardiograph Report ---
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
--- NOTE | 2017-09-14 17:52 | Electrocardiograph Report ---
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
[2017-09-14] MEDS: Finasteride 5 MG TABLET PO SCH (21:03)
[2017-09-14] MEDS ORDERED: Melatonin 3 MG TABLET PO PRN (21:17)
[2017-09-15] MEDS: 0.9 % Sodium Chloride 1,000 ML IVC SCH (02:16)
[2017-09-15 05:45] LABS: Basophils % 0.6 %; Eosinophils # 0.2 K/mcL (0.0-0.6); Eosinophils % 3.8 %; Hematocrit 36.3 % (37.5-50.1); Hemoglobin 12.4 g/dL (12.9-16.9); Immature Granulocytes % 0.2 % (0-4); Lymphocytes % 20.6 %; Mean Corpuscular HGB Conc 34.2 g/dL (31.6-35.5); Mean Corpuscular Hemoglobin 33.1 pg (28.0-33.3); Mean Corpuscular Volume 96.8 fL (83.0-100.0); Mean Platelet Volume 9.4 fL (9.4-12.4); Monocytes # 0.3 K/mcL (0.0-1.3); Neutrophils # 3.5 K/mcL (1.6-8.9); Platelet Count 170 K/mcL (140-400); Red Blood Count 3.75 M/mcL (4.19-5.50); Segmented Neutrophils % 68.8 %
[2017-09-15 05:59] LABS: BUN/Creatinine Ratio 21 (6-26); Blood Urea Nitrogen 23 mg/dL (8-26); Calcium 8.5 mg/dL (8.6-10.8); Carbon Dioxide 25 mEq/L (19-29); Chloride 105 mEq/L (98-109); Glucose 143 mg/dL (70-99); Osmolality,Calculated 296 (280-300); Sodium 140 mEq/L (136-145); eGFR For African Americans > 60 (> 60); eGFR For Non-African Americans > 60 (> 60)
[2017-09-15] MEDS: *HR* Heparin 5,000 UNIT/ML VIAL SQ SCH ×2 (06:21→17:18)
[2017-09-15] MEDS: Insulin LISPRO 300 UNITS/3 ML VIAL SQ SCH ×4 (07:41→20:32)
[2017-09-15] MEDS: Famotidine 20 MG TABLET PO SCH (10:05)
[2017-09-15] MEDS: amLODIPine 5 MG TABLET PO SCH (10:05)
[2017-09-15] MEDS: Gabapentin 300 MG CAPSULE PO SCH ×2 (10:05→20:38)
--- NOTE | 2017-09-15 13:02 | Discharge Summary ---
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 insulin use: without [place] [facility] use Qualified Code(s): E11.65 - Type 2 diabetes mellitus with hyperglycemia (4) CKD (chronic kidney disease) stage 3, GFR 30-59 ml/min Priority: Secondary Status: Chronic (5) Hearing deficit Priority: Secondary Status: Chronic Qualifiers: Laterality: bilateral Qualified Code(s): H91.93 - Unspecified hearing loss , bilateral (6) Anxiety Priority: Secondary Status: Chronic (7) Vertebral artery disease Priority: Secondary Status: Chronic (8) DVT prophylaxis Priority: Secondary Status: Acute - Discharge Medications Home Medications: ALPRAZolam [Xanax 0.25 MG Tablet] 0.5 mg PO HS 02/27/16 [History] Atorvastatin [Lipitor] 10 mg PO HS 02/27/16 [History] Clopidogrel [Plavix] 75 mg PO DAILY 02/27/16 [History] Cyanocobalamin (B-12) [Vitamin B12] 1,000 mcg IM QMONTH 02/27/16 [History] Gabapentin [Neurontin] 600 mg PO BID 02/27/16 [History] Glimepiride [Amaryl] 2 - 4 mg PO QAM 02/27/16 [History] Pramipexole [Mirapex] 0.25 mg PO HS 02/27/16 [History] Ranitidine HCl [Zantac 75] 150 mg PO BID 02/27/16 [History] Tamsulosin [Flomax] 0.4 mg PO BID 02/27/16 [History] metFORMIN [Glucophage] 1,000 mg PO BID 02/27/16 [History] Finasteride [Proscar] 5 mg PO HS 10/24/16 [History] Amlodipine Besylate [Amlodipine Besylate] 10 mg PO DAILY 09/13/17 [History] Allergies/Adverse Reactions: 3 Allergy/AdvReac Type Severity Reaction Status Date / Time Sulfa (Sulfonamide Allergy Rash Verified 08/25/17 21:48 Antibiotics) carbidopa AdvReac Gastrointestinal Verified 08/25/17 21:48 Upset clonazepam AdvReac Gastrointestinal Verified 08/25/17 21:48 Upset clotrimazole AdvReac Gastrointestinal Verified 08/25/17 21:48 Upset fexofenadine [From Brandy] AdvReac Gastrointestinal Verified 08/25/17 21:48 Upset guaifenesin [From Robitussin] AdvReac Gastrointestinal Verified 08/25/17 21:48 Upset hydrochlorothiazide AdvReac Rash Verified 08/25/17 21:48 levodopa [From Sinemet] AdvReac Gastrointestinal Verified 08/25/17 21:48 Upset pioglitazone [From Actos] AdvReac Gastrointestinal Verified 08/25/17 21:48 Upset ropinirole [From Requip] AdvReac Gastrointestinal Verified 08/25/17 21:48 Upset sertraline [From Zoloft] AdvReac Drowsy Verified 08/25/17 21:48 tamsulosin [From Flomax] AdvReac Gastrointestinal Verified 08/25/17 21:48 Upset Date of admission: 09/14/17 01:01 Primary care physician: Erica Meyer Consults: 09/14/17 01:05 Consult to Occupational Therapy [CONS] Routine Comment: Evaluate, develop and implement POC Reason for Consult: OT eval Consult to Physical Therapy [CONS] Routine Comment: Evaluate, develop and implement POC Reason for Consult: PT eval 09/14/17 01:08 Consult to Modeling Instructor [CONS] Routine Reason for SW Consult: d/c planning Discharging clinician: Luis Ferro Anticipated date of discharge: 09/15/17 - Patient Status Disposition: Home Health Service Condition: Fair Functional capacity at discharge: uses cane/walker Overall status at discharge: patient is progressing back to baseline - Discharge Instructions Follow Up With: Erica Bennett MD [Primary Care Provider] - Forms: ED Satisfaction Letter - Diet and Activity Activity: increase activity as tolerated Diet: low fat, low cholesterol, low salt diet Interval History: See below Hospital course: Mr. Crowder is a 86 year old male HE is admitted following a fall, as per patient's , he did not have syncope , he was awake at time of fall, and awake when she went to attend t him He did sustain a Left parietal scalp injury Work up on admission negative They are refusing in-patient rehab, regardless of PTOT eval PTOT evaluation this morning recommends outpatient therapy. 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 His last echocardiogram in October 2016 did not show any valvular abnormalities. Repeat echocardiogram ordered 09/14, showed EF 55%, no valvular abnormalities, no WMA, evidence of BBB which is chronic Patient is seen and evaluated at the bedside with his , they have no new complaints and asking to be discharged home. He has an appointment with neurology on Wednesday for his chronic vertebral artery occlusion. He is encouraged to follow for primary care physician, and neurologist. Prescription for out-patient therapy filled Patient and his verbalize understanding of the high risk of falls and risk of fractures and head injury. - Time Spent with Patient Total time spent providing and/or coordinating discharge services: Greater than 30 minutes - Constitutional Vitals: Temp Pulse Resp BP Pulse Ox 97.6 F 54 15 133/69 92 09/15/17 10:58 09/15/17 10:58 09/15/17 10:58 09/15/17 10:58 09/15/17 10:58 General appearance: Present: cooperative, A&O X 3, pleasant, no acute distress, answers questions appropriately - Head Head exam: Present: atraumatic, normocephalic - Eye Eye exam: Present: PERRL, conjuntiva pink, sclera anicteric Pupils: Present: PERRL - Neck Neck exam general surgery: Present: supple, trachea midline. Absent: lymphadenopathy - Respiratory Respiratory exam: Present: CTAB. Absent: accessory muscle use, rales, rhonchi, wheezes - Cardiovascular Cardiovascular exam: Present: RRR, +S1, +S2. Absent: diastolic murmur, gallop, rubs, systolic murmur - GI/Abdominal GI/Abdominal exam: Present: normal bowel sounds, soft, no peritoneal signs. Absent: distended, tenderness - Extremities Exam Extremities exam: Present: warm, radial pulses palpable and symmetrical. Absent : calf tenderness, cyanotic, pedal edema - Neurological Exam Neurological exam: Present: alert, CN II-XII intact, oriented X3, no focal deficits. Absent: pronater drift, facial droop, speech deficit - Skin Skin exam: Present: dry, intact
--- NOTE | 2017-09-15 13:11 | Physician Discharge Referral ---
Home Health/Hosp Referral Info Transfer to: Home Health Attending Provider: Vikash Ferro Provider in Charge Post Discharge: PCP - Diagnosis (1) Frequent falls Priority: Primary Status: Acute (2) Essential hypertension Priority: Secondary Status: Chronic (3) BPH (benign prostatic hyperplasia) Priority: Secondary Status: Chronic (4) Diabetes mellitus Priority: Secondary Status: Chronic (5) CKD (chronic kidney disease) stage 3, GFR 30-59 ml/min Priority: Secondary Status: Chronic (6) Hearing deficit Priority: Secondary Status: Chronic (7) Anxiety Priority: Secondary Status: Chronic (8) Vertebral artery disease Priority: Secondary Status: Chronic (9) DVT prophylaxis Priority: Secondary Status: Acute - Respiratory Orders Smoking Cessation: Smoking cessation has been advised. For more information, call the [employer] Tobacco Quit Line at 3-540-QOLW-NOW. - Diet/Nutrition Diet/Nutrition Orders: Cardiac, No Concentrated Sweets - Activity Activity Orders: Ambulate (Per PT orders) - Services Needed Following services are medically necessary services: Physical Therapy (as out- patient therapy) - Transfer Medications Home Medications: ALPRAZolam [Xanax 0.25 MG Tablet] 0.5 mg PO HS 02/27/16 [History] Atorvastatin [Lipitor] 10 mg PO HS 02/27/16 [History] Clopidogrel [Plavix] 75 mg PO DAILY 02/27/16 [History] Cyanocobalamin (B-12) [Vitamin B12] 1,000 mcg IM QMONTH 02/27/16 [History] Gabapentin [Neurontin] 600 mg PO BID 02/27/16 [History] Glimepiride [Amaryl] 2 - 4 mg PO QAM 02/27/16 [History] Pramipexole [Mirapex] 0.25 mg PO HS 02/27/16 [History] Ranitidine HCl [Zantac 75] 150 mg PO BID 02/27/16 [History] Tamsulosin [Flomax] 0.4 mg PO BID 02/27/16 [History] metFORMIN [Glucophage] 1,000 mg PO BID 02/27/16 [History] Finasteride [Proscar] 5 mg PO HS 10/24/16 [History] Amlodipine Besylate [Amlodipine Besylate] 10 mg PO DAILY 09/13/17 [History] Allergies/Adverse Reactions: 3 Allergy/AdvReac Type Severity Reaction Status Date / Time Sulfa (Sulfonamide Allergy Rash Verified 08/25/17 21:48 Antibiotics) carbidopa AdvReac Gastrointestinal Verified 08/25/17 21:48 Upset clonazepam AdvReac Gastrointestinal Verified 08/25/17 21:48 Upset clotrimazole AdvReac Gastrointestinal Verified 08/25/17 21:48 Upset fexofenadine [From Brandy] AdvReac Gastrointestinal Verified 08/25/17 21:48 Upset guaifenesin [From Robitussin] AdvReac Gastrointestinal Verified 08/25/17 21:48 Upset hydrochlorothiazide AdvReac Rash Verified 08/25/17 21:48 levodopa [From Sinemet] AdvReac Gastrointestinal Verified 08/25/17 21:48 Upset pioglitazone [From Actos] AdvReac Gastrointestinal Verified 08/25/17 21:48 Upset ropinirole [From Requip] AdvReac Gastrointestinal Verified 08/25/17 21:48 Upset sertraline [From Zoloft] AdvReac Drowsy Verified 08/25/17 21:48 tamsulosin [From Flomax] AdvReac Gastrointestinal Verified 08/25/17 21:48 Upset Certification: Further, I certify that my clinical findings support that this patient is homebound (i.e. absences from home require considerable and taxing effort and are for medical reasons or yazidism services or infrequently or short duration when for other reasons) because: Homebound Reason: Patient requires assistance of a person or device to safely leave home Attestation: My signature below is to certify that this patient is under my care and that I, or nurse practitioner, or a physician's fire assistant working with me, has a face-to -face encounter with this patient.
[2017-09-15] MEDS: Finasteride 5 MG TABLET PO SCH (20:38)
[2017-09-16] MEDS: *HR* Heparin 5,000 UNIT/ML VIAL SQ SCH (05:56)
[2017-09-16] MEDS: Insulin LISPRO 300 UNITS/3 ML VIAL SQ SCH (08:32)
[2017-09-16] MEDS: Gabapentin 300 MG CAPSULE PO SCH (08:33)
[2017-09-16] MEDS: amLODIPine 5 MG TABLET PO SCH (08:33)
[2017-09-16] MEDS: Famotidine 20 MG TABLET PO SCH (08:33)
[2017-09-16 11:10] VITALS: BP 129/64
--- NOTE | 2017-09-16 11:58 | Event Note ---
Date of Encounter: 09/16/17 Time of Encounter: 11:57 Seen and evaluated at bedside with spouse No new complains VSS, ambulatory He is stable for discharge home ECHO has been reported and reviewed, no valvular abnormalities, EF 55%, no WMA, evidence of BBB which is chronic
== END 2017-09-16 12:41 | disposition home health service (06) | DRG 312 ==
LOC: EMEROO 17:39 → 3BNU 17:39 → SUATTDRO 09-14 01:01
PROVIDERS: ADMIT Family Medicine; ATTEND Internal Medicine

== ENCOUNTER 2018-01-03 15:02 | Inpatient (IN) ==
[2018-01-03] MEDS ORDERED: Ipratropium/Albuterol Neb 3 ML IH ONE (15:17)
[2018-01-03] MEDS ORDERED: methylPREDNISolone 125 MG/2 ML VIAL IVP ONE (15:17)
[2018-01-03] MEDS ORDERED: Aspirin 81 MG TAB.CHEW PO STA (15:44)
--- NOTE | 2018-01-03 15:50 | Emergency Department Note ---
Disposition Clinical Impression: COPD exacerbation Disposition: Admitted As Inpatient Condition: Fair Time of Disposition: 17:04 General Adult HPI - General Chief complaint: ED Shortness of Breath/Dyspnea Stated complaint: "oxygen low,ANDREY" Time Seen by Provider: 01/03/18 15:17 Source: patient, family Limitations: no limitations Nursing Notes Reviewed: Yes Vital Signs Reviewed: Yes - History of Present Illness HPI Narrative: Patient is an 87-year-old male with a past medical history of valvular heart disease, HLD, HTN, PAD, DM and renal disease presenting to the emergency department for the presentation of difficulty in breathing that has been going on for the past week. According the patient and the patient's the patient was being seen today to have lab tests drawn and his family care physician saw him and recommended they come to the emergency department when she heard the patient's breathing. In triage the patient's oxygen saturation was dropping into the 88% range. Patient denies any fevers, chills, nausea, vomiting, chest pain, abdominal pain, or diarrhea. Pain Scale: 0 - Related Data Home Medications Medication Instructions Recorded Confirmed ALPRAZolam [Xanax 0.25 MG Tablet] 0.5 mg PO HS 02/27/16 01/03/18 Atorvastatin [Lipitor] 10 mg PO HS 02/27/16 01/03/18 Clopidogrel [Plavix] 75 mg PO DAILY 02/27/16 01/03/18 Cyanocobalamin (B-12) [Vitamin B12] 1,000 mcg IM QMONTH 02/27/16 01/03/18 Gabapentin [Neurontin] 600 mg PO BID 02/27/16 01/03/18 Glimepiride [Amaryl] 2 - 4 mg PO QAM 02/27/16 01/03/18 Pramipexole [Mirapex] 0.25 mg PO HS 02/27/16 01/03/18 Ranitidine HCl [Zantac 75] 150 mg PO BID 02/27/16 01/03/18 metFORMIN [Glucophage] 1,000 mg PO BID 02/27/16 01/03/18 Amlodipine Besylate [Amlodipine 10 mg PO DAILY 09/13/17 01/03/18 Besylate] Albuterol Neb [Proventil Neb] 2.5 mg IH TID 01/03/18 01/03/18 Alfuzosin HCl [Uroxatral] 10 mg PO DAILY 01/03/18 01/03/18 Allergies Allergy/AdvReac Type Severity Reaction Status Date / Time Sulfa (Sulfonamide Allergy Rash Verified 01/03/18 15:10 Antibiotics) carbidopa AdvReac Gastrointestinal Verified 01/03/18 15:10 Upset clonazepam AdvReac Gastrointestinal Verified 01/03/18 15:10 Upset clotrimazole AdvReac Gastrointestinal Verified 01/03/18 15:10 Upset fexofenadine [From Brandy] AdvReac Gastrointestinal Verified 01/03/18 15:10 Upset guaifenesin [From Robitussin] AdvReac Gastrointestinal Verified 01/03/18 15:10 Upset hydrochlorothiazide AdvReac Rash Verified 01/03/18 15:10 levodopa [From Sinemet] AdvReac Gastrointestinal Verified 01/03/18 15:10 Upset pioglitazone [From Actos] AdvReac Gastrointestinal Verified 01/03/18 15:10 Upset ropinirole [From Requip] AdvReac Gastrointestinal Verified 01/03/18 15:10 Upset sertraline [From Zoloft] AdvReac Drowsy Verified 01/03/18 15:10 tamsulosin [From Flomax] AdvReac Gastrointestinal Verified 01/03/18 15:10 Upset All systems ED: reviewed and negative except as stated. Review of Systems: As Per HPI Constitutional: Denies: fever ENT ED: Reports: congestion Cardiovascular: Reports: dyspnea on exertion. Denies: chest pain, palpitations , syncope Respiratory: Reports: cough, dyspnea, wheezes, sputum production Gastrointestinal: Denies: abdominal pain, nausea, vomiting Genitourinary: Denies: urgency, dysuria Musculoskeletal: Denies: back pain, neck pain Integumentary: Denies: rash Past Medical History - Past Medical History Attestation: Yes The following information was validated with the patient. Medical history: Reports: arthritis, cardiomyopathy, diabetes, GERD, glaucoma, hyperlipidemia, hypertension, osteoporosis, peripheral artery disease, renal disease, syncope, valvular heart disease Surgical history: Reports: cholecystectomy, prostatectomy (Laser directed TURP.) , other (Colonoscopy.) Psychiatric history: Reports: anxiety - Social History Smoking Status: Never smoker Smokeless Tobacco Status: No Alcohol use: Reports: none Drug use: Reports: none Physical Exam CONSTITUTIONAL: Well-nourished; A&O X 3, in mild respiratory distress. Tachypnea with 95% on 2L NC. HEAD: Normocephalic; atraumatic EYES: PERRL, no scleral icterus NOSE: The nose is normal in appearance without rhinorrhea NECK: No JVD or distended neck veins RESP: Patient has wheezes bilaterally in all lung baca. No rhonchi or rales. He does have increased work of breathing with tachypnea. CARD: Regular rhythm, without murmurs, rub or gallop ABD: Non-distended; non-tender, soft, without rigidity, rebound or guarding,no pulsatile mass CHEST: No pain with palpation SKIN: Normal for age and race; warm and dry without diaphoresis ; no apparent lesions EXTREMITIES: Pulses are 2 plus and equal times 4 extremities, no peripheral edema or calf muscle pain NEURO: Patient is AOx3. GCS of 15. No focal neruo deficits on exam. - General Limitations: no limitations General appearance: alert, in no apparent distress Course Course Narrative: EKG changes, Dr. Block's paged and EKG faxed at 15:40. Patient has wheezing in bilateral lung baca. Plan at this time is to work him up as a COPD exacerbation. We will perform a chest x-ray, troponins, EKG as well as basic labs. Patient will also be treated with IV steroids as well as breathing treatments. - Reevaluation(s) Reevaluation #1: Dr. Block's saw the patient's EKG. States it was not an acute STEMI at this time. Plan is to continue with labs as stated and we will admit the patient for his difficulty in breathing. Time: 15:50 Reevaluation #2: Patient was admitted to hospitalist Dr. Ayers for COPD exacerbation. Vital Signs Temperature 99.6 F 01/03/18 15:07 Pulse Rate 75 01/03/18 15:07 Respiratory Rate 24 01/03/18 15:07 Blood Pressure 178/76 01/03/18 15:07 O2 Sat by Pulse Oximetry 88 01/03/18 15:07 Temperature 99.6 F 01/03/18 15:07 Pulse Rate 88 01/03/18 18:57 Respiratory Rate 20 01/03/18 18:57 Blood Pressure 157/88 01/03/18 18:57 O2 Sat by Pulse Oximetry 93 01/03/18 18:57 Oxygen Delivery Oxygen Delivery Room Air Medical Decision Making - Medical Records Medical records reviewed: Yes I reviewed the patient's medical records. - Lab Data Lab results reviewed: Yes I reviewed the patient's lab results. Result diagrams: 01/03/18 15:33 01/03/18 15:33 Lab Results 01/03/18 01/03/18 01/03/18 Range/Units 15:25 15:33 15:33 WBC 6.4 (4.3-11.1) K/mcL RBC 4.42 (4.19-5.50) M/mcL Hgb 14.2 (12.9-16.9) g/dL Hct 42.6 (37.5-50.1) % MCV 96.4 (83.0-100.0) fL MCH 32.1 (28.0-33.3) pg MCHC 33.3 (31.6-35.5) g/dL RDW 12.7 (11.5-14.5) % Plt Count 204 (140-400) K/mcL MPV 9.3 L (9.4-12.4) fL Immature Gran % 0.3 (0-4) % Seg Neutrophils % 64.9 % Lymphocytes % 18.5 % Monocytes % 6.5 % Eosinophils % 8.9 % Basophils % 0.9 % Neutrophils # 4.2 (1.6-8.9) K/mcL Lymphocytes # 1.2 (0.6-4.6) K/mcL Monocytes # 0.4 (0.0-1.3) K/mcL Eosinophils # 0.6 (0.0-0.6) K/mcL Basophils # 0.1 (0.0-0.2) K/mcL Sodium 139 (136-145) mEq/L Potassium 4.2 (3.5-5.1) mEq/L Chloride 99 (98-107) mEq/L Carbon Dioxide 32 H (23-29) mEq/L BUN 27 H (8-23) mg/dL Creatinine 1.39 H (0.70-1.30) mg/dL Est GFR ( Amer) 58 L (> 60) Est GFR (Non-Af Amer) 48 L (> 60) BUN/Creatinine Ratio 19 (6-26) Glucose 143 H (70-105) mg/dL POC Glucose 134 H (68-89) mg/dL Calculated Osmolality 296 (280-300) Calcium 10.1 (8.6-10.3) mg/dL Troponin I < 0.03 (< 0.04) ng/mL B-Natriuretic Peptide (Less than 100) pg/mL 01/03/18 Range/Units 15:33 WBC (4.3-11.1) K/mcL RBC (4.19-5.50) M/mcL Hgb (12.9-16.9) g/dL Hct (37.5-50.1) % MCV (83.0-100.0) fL MCH (28.0-33.3) pg MCHC (31.6-35.5) g/dL RDW (11.5-14.5) % Plt Count (140-400) K/mcL MPV (9.4-12.4) fL Immature Gran % (0-4) % Seg Neutrophils % % Lymphocytes % % Monocytes % % Eosinophils % % Basophils % % Neutrophils # (1.6-8.9) K/mcL Lymphocytes # (0.6-4.6) K/mcL Monocytes # (0.0-1.3) K/mcL Eosinophils # (0.0-0.6) K/mcL Basophils # (0.0-0.2) K/mcL Sodium (136-145) mEq/L Potassium (3.5-5.1) mEq/L Chloride (98-107) mEq/L Carbon Dioxide (23-29) mEq/L BUN (8-23) mg/dL Creatinine (0.70-1.30) mg/dL Est GFR ( Amer) (> 60) Est GFR (Non-Af Amer) (> 60) BUN/Creatinine Ratio (6-26) Glucose (70-105) mg/dL POC Glucose (68-89) mg/dL Calculated Osmolality (280-300) Calcium (8.6-10.3) mg/dL Troponin I (< 0.04) ng/mL B-Natriuretic Peptide 200 H (Less than 100) pg/mL - Radiology Data Radiology results reviewed: Yes I reviewed the patient's radiology results. Chest X-Ray 01/03/18 15:17 IMPRESSION: Cardiomegaly. Poor inspiration for the exam. No definite radiographic evidence of acute pulmonary disease. D/ / Gonzalo Benito / Gonzalo Benito Interpreting Provider: Gonzalo Benito - EKG Data EKG #1 EKG attestation: Yes I reviewed and interpreted this EKG. EKG results narrative: Patient EKG done at 15:17 does show sinus rhythm at a rate of 75 bpm. First- degree AV block. Patient also has possible concerns for STD elevation in lead III and aVF as well as peaked T waves in the lead V1 through V3 precordial's. The elevations do appear new from old EKG. This EKG was faxed to Dr. Nazario the interventional S and he states that this does not appear to be a STEMI at this time. So the patient's EKG is essentially unchanged from his EKG on September 142016 otherwise.
[2018-01-03 16:01] LABS: Basophils # 0.1 K/mcL (0.0-0.2); Basophils % 0.9 %; Eosinophils # 0.6 K/mcL (0.0-0.6); Eosinophils % 8.9 %; Hematocrit 42.6 % (37.5-50.1); Hemoglobin 14.2 g/dL (12.9-16.9); Immature Granulocytes % 0.3 % (0-4); Lymphocytes # 1.2 K/mcL (0.6-4.6); Lymphocytes % 18.5 %; Mean Corpuscular HGB Conc 33.3 g/dL (31.6-35.5); Mean Corpuscular Hemoglobin 32.1 pg (28.0-33.3); Mean Corpuscular Volume 96.4 fL (83.0-100.0); Mean Platelet Volume 9.3 fL (9.4-12.4); Monocytes # 0.4 K/mcL (0.0-1.3); Monocytes % 6.5 %; Neutrophils # 4.2 K/mcL (1.6-8.9); Platelet Count 204 K/mcL (140-400); Red Blood Count 4.42 M/mcL (4.19-5.50); Red Cell Distribution Width 12.7 % (11.5-14.5); Segmented Neutrophils % 64.9 %
[2018-01-03 16:16] LABS: BUN/Creatinine Ratio 19 (6-26); Blood Urea Nitrogen 27 mg/dL (8-23); Calcium 10.1 mg/dL (8.6-10.3); Carbon Dioxide 32 mEq/L (23-29); Chloride 99 mEq/L (98-107); Glucose 143 mg/dL (70-105); Osmolality,Calculated 296 (280-300); Potassium 4.2 mEq/L (3.5-5.1); Sodium 139 mEq/L (136-145); Troponin I < 0.03 ng/mL (< 0.04); eGFR For African Americans 58 (> 60); eGFR For Non-African Americans 48 (> 60)
--- NOTE | 2018-01-03 16:56 | Emergency Department Note ---
Disposition Clinical Impression: COPD exacerbation Disposition: Admitted As Inpatient Referrals: Erica Bennett MD [Primary Care Provider] - Forms: ED Satisfaction Letter General Adult HPI - General Chief complaint: ED Shortness of Breath/Dyspnea Stated complaint: "oxygen low,ANDREY" Time Seen by Provider: 01/03/18 15:17 Source: patient, family Limitations: no limitations - History of Present Illness Pain Scale: 0 - Related Data Home Medications Medication Instructions Recorded Confirmed ALPRAZolam [Xanax 0.25 MG Tablet] 0.5 mg PO HS 02/27/16 01/03/18 Atorvastatin [Lipitor] 10 mg PO HS 02/27/16 01/03/18 Clopidogrel [Plavix] 75 mg PO DAILY 02/27/16 01/03/18 Cyanocobalamin (B-12) [Vitamin B12] 1,000 mcg IM QMONTH 02/27/16 01/03/18 Gabapentin [Neurontin] 600 mg PO BID 02/27/16 01/03/18 Glimepiride [Amaryl] 2 - 4 mg PO QAM 02/27/16 01/03/18 Pramipexole [Mirapex] 0.25 mg PO HS 02/27/16 01/03/18 Ranitidine HCl [Zantac 75] 150 mg PO BID 02/27/16 01/03/18 metFORMIN [Glucophage] 1,000 mg PO BID 02/27/16 01/03/18 Amlodipine Besylate [Amlodipine 10 mg PO DAILY 09/13/17 01/03/18 Besylate] Albuterol Neb [Proventil Neb] 2.5 mg IH TID 01/03/18 01/03/18 Alfuzosin HCl [Uroxatral] 10 mg PO DAILY 01/03/18 01/03/18 Allergies Allergy/AdvReac Type Severity Reaction Status Date / Time Sulfa (Sulfonamide Allergy Rash Verified 01/03/18 15:10 Antibiotics) carbidopa AdvReac Gastrointestinal Verified 01/03/18 15:10 Upset clonazepam AdvReac Gastrointestinal Verified 01/03/18 15:10 Upset clotrimazole AdvReac Gastrointestinal Verified 01/03/18 15:10 Upset fexofenadine [From Brandy] AdvReac Gastrointestinal Verified 01/03/18 15:10 Upset guaifenesin [From Robitussin] AdvReac Gastrointestinal Verified 01/03/18 15:10 Upset hydrochlorothiazide AdvReac Rash Verified 01/03/18 15:10 levodopa [From Sinemet] AdvReac Gastrointestinal Verified 01/03/18 15:10 Upset pioglitazone [From Actos] AdvReac Gastrointestinal Verified 01/03/18 15:10 Upset ropinirole [From Requip] AdvReac Gastrointestinal Verified 01/03/18 15:10 Upset sertraline [From Zoloft] AdvReac Drowsy Verified 01/03/18 15:10 tamsulosin [From Flomax] AdvReac Gastrointestinal Verified 01/03/18 15:10 Upset Constitutional: Denies: fever ENT ED: Reports: congestion Cardiovascular: Reports: dyspnea on exertion. Denies: chest pain, palpitations , syncope Respiratory: Reports: cough, dyspnea, wheezes, sputum production Gastrointestinal: Denies: abdominal pain, nausea, vomiting Genitourinary: Denies: urgency, dysuria Musculoskeletal: Denies: back pain, neck pain Integumentary: Denies: rash Past Medical History - Past Medical History Medical history: Reports: arthritis, cardiomyopathy, diabetes, GERD, glaucoma, hyperlipidemia, hypertension, osteoporosis, peripheral artery disease, renal disease, syncope, valvular heart disease Surgical history: Reports: cholecystectomy, prostatectomy (Laser directed TURP.) , other (Colonoscopy.) Psychiatric history: Reports: anxiety - Social History Smoking Status: Never smoker Smokeless Tobacco Status: No Alcohol use: Reports: none Drug use: Reports: none Physical Exam - General Limitations: no limitations General appearance: alert, in no apparent distress Course - Reevaluation(s) Reevaluation #1: Attestation note I did independently examine and verified the physical examination findings evaluation workup and disposition of this patient. We had independent face-to- face examination and discussion. The patient was seen with the emergency medicine resident Dr. Brant Candelario I examined this patient and my medical decision-making was reviewed with the Resident Physician/CLINICAL DOCUMENTATION CLERK/PA. I agree with the documented findings, disposition and treatment plan as described except to the extent set forth below. Briefly: A 7-year-old male home O2 dependent using his home nebulizer 3-4-5 times daily went to his PCP or here today got another breathing treatment and was sent here for further evaluation patient desaturates off oxygen tired. Troponin chest x-ray and other lab work otherwise negative. Expiratory wheezes got triple DuoNeb some IV steroids discussed case with the hospitalist patient accepted for admission in stable condition. Provided 45 minutes of critical care service for this patient Time: 16:55 Vital Signs Temperature 99.6 F 01/03/18 15:07 Pulse Rate 75 01/03/18 15:07 Respiratory Rate 24 01/03/18 15:07 Blood Pressure 178/76 01/03/18 15:07 O2 Sat by Pulse Oximetry 88 01/03/18 15:07 Temperature 99.6 F 01/03/18 15:07 Pulse Rate 75 01/03/18 15:07 Respiratory Rate 24 01/03/18 15:07 Blood Pressure 178/76 01/03/18 15:07 O2 Sat by Pulse Oximetry 95 01/03/18 15:20 Oxygen Delivery Oxygen Delivery Room Air Medical Decision Making - Lab Data Result diagrams: 01/03/18 15:33 01/03/18 15:33 Lab Results 01/03/18 01/03/18 01/03/18 Range/Units 15:33 15:33 15:33 WBC 6.4 (4.3-11.1) K/mcL RBC 4.42 (4.19-5.50) M/mcL Hgb 14.2 (12.9-16.9) g/dL Hct 42.6 (37.5-50.1) % MCV 96.4 (83.0-100.0) fL MCH 32.1 (28.0-33.3) pg MCHC 33.3 (31.6-35.5) g/dL RDW 12.7 (11.5-14.5) % Plt Count 204 (140-400) K/mcL MPV 9.3 L (9.4-12.4) fL Immature Gran % 0.3 (0-4) % Seg Neutrophils % 64.9 % Lymphocytes % 18.5 % Monocytes % 6.5 % Eosinophils % 8.9 % Basophils % 0.9 % Neutrophils # 4.2 (1.6-8.9) K/mcL Lymphocytes # 1.2 (0.6-4.6) K/mcL Monocytes # 0.4 (0.0-1.3) K/mcL Eosinophils # 0.6 (0.0-0.6) K/mcL Basophils # 0.1 (0.0-0.2) K/mcL Sodium 139 (136-145) mEq/L Potassium 4.2 (3.5-5.1) mEq/L Chloride 99 (98-107) mEq/L Carbon Dioxide 32 H (23-29) mEq/L BUN 27 H (8-23) mg/dL Creatinine 1.39 H (0.70-1.30) mg/dL Est GFR ( Amer) 58 L (> 60) Est GFR (Non-Af Amer) 48 L (> 60) BUN/Creatinine Ratio 19 (6-26) Glucose 143 H (70-105) mg/dL Calculated Osmolality 296 (280-300) Calcium 10.1 (8.6-10.3) mg/dL Troponin I < 0.03 (< 0.04) ng/mL B-Natriuretic Peptide 200 H (Less than 100) pg/mL
[2018-01-03] MEDS ORDERED: D5% in Water 1,000 ML IVC PRN (19:12)
[2018-01-03] MEDS ORDERED: *HR* Dextrose 50 % in Water (Syg) 50 ML SYRINGE IVP PRN (19:12)
[2018-01-03] MEDS ORDERED: Dextrose Gel 15 GM/37.5 ML TUBE PO PRN ×2 (19:12)
[2018-01-03] MEDS ORDERED: Acetaminophen 325 MG TABLET PO PRN (19:15)
[2018-01-03] MEDS ORDERED: Naloxone 0.4 MG/ML INJ IVP PRN (19:15)
[2018-01-03] MEDS: Ipratropium/Albuterol Neb 3 ML IH SCH ×2 (19:30→21:04)
--- NOTE | 2018-01-03 19:44 | Internal Med History&Physical ---
Date of Encounter: 01/03/18 Time of Encounter: 19:42 Assessment and Plan (1) Acute respiratory failure with hypoxia Current visit: No Status: Acute Admit the patient for COPD exacerbation and mild diastolic CHF exacerbation. We will put the patient on IV Solu-Medrol and nebulizers. Add Zithromax. Give a dose of lasix 40 mg IV now and see how his kidney function does tomorrow. May need more lasix O2 support as needed and wean as tolerated. (2) COPD exacerbation Current visit: Yes Status: Acute Treat as above. (3) Diastolic CHF, acute on chronic Current visit: Yes Status: Acute Has LE edema and bibasilar crackles. BNP mildly elevated. Would benefit from diuresis. Will give 40 mg IV lasix. Last echo in September 2017. Preserved EF with diastolic dysfunction. No need to repeat. (4) Hypertension Current visit: Yes Status: Acute Resume home antihypertensives Qualifiers: Hypertension type: essential hypertension Qualified Code(s): I10 - Essential (primary) hypertension (5) Diabetes mellitus Current visit: No Status: Chronic Insulin sliding scale and Accu-Cheks. Diabetic diet Qualifiers: Diabetes mellitus type: type 2 Diabetes mellitus terminal make up operator insulin use: without long-term use Diabetes mellitus complication status: with hyperglycemia Qualified Code(s): E11.65 - Type 2 diabetes mellitus with hyperglycemia (6) CKD (chronic kidney disease) Current visit: No Status: Chronic Patient's kidney function is up and down. Creatinine is at 1.39 today. will give Lasix 40 mg IV for LE edema. Check labs in am. Qualifiers: Chronic kidney disease stage: stage 3 (moderate) Qualified Code(s): N18.3 - Chronic kidney disease, stage 3 (moderate) (7) DVT prophylaxis Current visit: No Status: Acute Heparin subcutaneous Internal Medicine - H&P: HPI Chief complaint: Shortness of breath Admitted From: Emergency Dept Plans for Post Hospital Care: Home History of present illness: Mr. Crowder is a 87 year old male with past medical history of cardiomyopathy, COPD, diabetes, peripheral vascular disease, renal disease, hyperlipidemia, hypertension, GERD, vertebral artery occlusion and anxiety. The patient presents with shortness of breath that spent going on for about a week. The patient was seen by his primary care physician apparently was significantly wheezing and was sent to the ED where her sats were 88% on room air. The patient describes some upper respiratory symptoms but denies any fever, chills, nausea, vomiting, chest pain, abdominal pain, urinary symptoms, or neurological symptoms. In the ED the patient was wheezing and received breathing treatment was given IV Solu-Medrol. Workup was mostly unremarkable but showed somewhat elevated creatinine however patient has had elevated creatinine in the past. Chest x-ray showed cardiomegaly but no obvious infiltrate. Past Med Surg Social Fam HX - Past Medical History Medical history: arthritis, cardiomyopathy, diabetes, GERD, glaucoma, hyperlipidemia, hypertension, osteoporosis, peripheral artery disease, renal disease, syncope, valvular heart disease Psychiatric history: anxiety - Past Surgical History Surgical History: cholecystectomy, prostatectomy (Laser directed TURP.), other ( Colonoscopy.) - Social History Smoking Status: Never smoker Smokeless Tobacco Status: No Alcohol use: none Drug use: none - Family History Son Hx Family Cancer: Yes Mother Living Status: Father Living Status: Hx Family Neurologic Disorders: Yes (Parkinsons) Internal Medicine - H&P: Meds ALPRAZolam [Xanax 0.25 MG Tablet] 0.5 mg PO HS 02/27/16 [History] Atorvastatin [Lipitor] 10 mg PO HS 02/27/16 [History] Clopidogrel [Plavix] 75 mg PO DAILY 02/27/16 [History] Cyanocobalamin (B-12) [Vitamin B12] 1,000 mcg IM QMONTH 02/27/16 [History] Gabapentin [Neurontin] 600 mg PO BID 02/27/16 [History] Glimepiride [Amaryl] 2 - 4 mg PO QAM 02/27/16 [History] Pramipexole [Mirapex] 0.25 mg PO HS 02/27/16 [History] Ranitidine HCl [Zantac 75] 150 mg PO BID 02/27/16 [History] metFORMIN [Glucophage] 1,000 mg PO BID 02/27/16 [History] Amlodipine Besylate [Amlodipine Besylate] 10 mg PO DAILY 09/13/17 [History] Albuterol Neb [Proventil Neb] 2.5 mg IH TID 01/03/18 [History] Alfuzosin HCl [Uroxatral] 10 mg PO DAILY 01/03/18 [History] Polyethylene Glycol 3350 [MiraLAX] 17 gm PO DAILY PRN 01/03/18 [History] 3 Allergy/AdvReac Type Severity Reaction Status Date / Time Sulfa (Sulfonamide Allergy Rash Verified 01/03/18 15:10 Antibiotics) carbidopa AdvReac Gastrointestinal Verified 01/03/18 15:10 Upset clonazepam AdvReac Gastrointestinal Verified 01/03/18 15:10 Upset clotrimazole AdvReac Gastrointestinal Verified 01/03/18 15:10 Upset fexofenadine [From Brandy] AdvReac Gastrointestinal Verified 01/03/18 15:10 Upset guaifenesin [From Robitussin] AdvReac Gastrointestinal Verified 01/03/18 15:10 Upset hydrochlorothiazide AdvReac Rash Verified 01/03/18 15:10 levodopa [From Sinemet] AdvReac Gastrointestinal Verified 01/03/18 15:10 Upset pioglitazone [From Actos] AdvReac Gastrointestinal Verified 01/03/18 15:10 Upset ropinirole [From Requip] AdvReac Gastrointestinal Verified 01/03/18 15:10 Upset sertraline [From Zoloft] AdvReac Drowsy Verified 01/03/18 15:10 tamsulosin [From Flomax] AdvReac Gastrointestinal Verified 01/03/18 15:10 Upset All Systems PM: A 10-system review of systems was performed and is negative for pertinent findings except as documented above in the HPI. - Constitutional Vitals: Temp Pulse Resp BP Pulse Ox 99.6 F 88 20 157/88 93 01/03/18 15:07 01/03/18 18:57 01/03/18 18:57 01/03/18 18:57 01/03/18 18:57 Exam: GEN: NAD HEENT: AT, NC, No cyanosis, oral mucosa is moist, No JVD Lymphatics: No lymphadenoapthy Eyes: Extrocular muscles intact, anicteric CVS:RRR. S1, S2, No m/r/g RESP: Diminished with posterior expiratory wheezes. Has bibasilar crackles ABD: Soft, NT, ND, +BS EXT: 2+ edema, No rashes, 2+ DP NEURO: Nonfocal, CN II-XII intact, No focal motor or sensory deficits Psych: Cooperative, Not anxious or depressed Internal Med - H&P Results - Labs CBC & Chem 7: 01/03/18 15:33 01/03/18 15:33
[2018-01-03] MEDS ORDERED: 0.9 % Sodium Chloride 1,000 ML IVC SCH (20:00)
[2018-01-03] MEDS ORDERED: Insulin LISPRO 300 UNITS/3 ML VIAL SQ SCH (21:00)
[2018-01-03] MEDS ORDERED: Furosemide 40 MG/4 ML VIAL IVP ONE (21:28)
[2018-01-03] MEDS: Azithromycin 500 MG in D5% in Water 250 ML IVPB SCH (21:30)
[2018-01-03] MEDS: Gabapentin 300 MG CAPSULE PO SCH (21:37)
[2018-01-03] MEDS: ALPRAZolam 0.25 MG TABLET PO SCH (21:38)
[2018-01-03] MEDS: Famotidine 20 MG TABLET PO SCH (21:38)
[2018-01-03] MEDS: *HR* Heparin 5,000 UNIT/ML VIAL SQ SCH (21:42)
[2018-01-03] MEDS: methylPREDNISolone 125 MG/2 ML VIAL IVP SCH (22:47)
[2018-01-04] MEDS: Ipratropium/Albuterol Neb 3 ML IH SCH ×4 (03:34→21:32)
[2018-01-04] MEDS: *HR* Heparin 5,000 UNIT/ML VIAL SQ SCH ×3 (05:36→20:50)
[2018-01-04 05:57] LABS: Basophils % 0.2 %; Hematocrit 39.3 % (37.5-50.1); Hemoglobin 13.4 g/dL (12.9-16.9); Immature Granulocytes % 0.4 % (0-4); Lymphocytes # 0.5 K/mcL (0.6-4.6); Lymphocytes % 8.6 %; Mean Corpuscular HGB Conc 34.1 g/dL (31.6-35.5); Mean Corpuscular Hemoglobin 32.7 pg (28.0-33.3); Mean Corpuscular Volume 95.9 fL (83.0-100.0); Mean Platelet Volume 9.6 fL (9.4-12.4); Monocytes % 0.6 %; Neutrophils # 4.8 K/mcL (1.6-8.9); Nucleated Red Blood Cells 0.4 /100 WBC (0); Platelet Count 207 K/mcL (140-400); Red Cell Distribution Width 12.5 % (11.5-14.5); Segmented Neutrophils % 90.2 %
[2018-01-04 06:16] LABS: BUN/Creatinine Ratio 23 (6-26); Blood Urea Nitrogen 30 mg/dL (8-23); Calcium 9.2 mg/dL (8.6-10.3); Carbon Dioxide 31 mEq/L (23-29); Chloride 97 mEq/L (98-107); Glucose 286 mg/dL (70-105); Magnesium 1.8 mg/dL (1.6-2.6); Osmolality,Calculated 301 (280-300); Potassium 3.8 mEq/L (3.5-5.1); Sodium 137 mEq/L (136-145); eGFR For African Americans > 60 (> 60); eGFR For Non-African Americans 51 (> 60)
[2018-01-04] MEDS: methylPREDNISolone 125 MG/2 ML VIAL IVP SCH ×2 (08:54→17:56)
[2018-01-04] MEDS: Gabapentin 300 MG CAPSULE PO SCH ×2 (08:55→20:49)
[2018-01-04] MEDS: Insulin LISPRO 300 UNITS/3 ML VIAL SQ SCH ×5 (08:56→20:51)
[2018-01-04] MEDS ORDERED: (Alfuzosin Hcl [Uroxatral] 10 MG) PO SCH (09:00)
[2018-01-04] MEDS: amLODIPine 5 MG TABLET PO SCH (12:11)
--- NOTE | 2018-01-04 15:56 | Internal Med Progress Note ---
Date of Encounter: 01/04/18 Time of Encounter: 15:56 - Assessment and plan (1) Acute respiratory failure with hypoxia Current Visit: No Status: Acute Assessment and plan: Multifactorial with COPD exacerbation and mild diastolic CHF exacerbation. Does not wear oxygen at home and now requiring 3 L O2 to maintain adequate oxygen saturations. Continue treating underlying causes. Wean O2 as possible. (2) Diastolic CHF, acute on chronic Current Visit: Yes Status: Acute Assessment and plan: Last echo in September 2017. Preserved EF with diastolic dysfunction. Now with new symptoms of lower extremity edema and acute respiratory failure. BNP mildly elevated, CXR nonacute. Continue IV Lasix, repeat echo. (3) COPD exacerbation Current Visit: Yes Status: Acute Assessment and plan: Suspected. Symptomatic with wheezing and shortness of breath. Continue IV steroids, azithromycin and bronchodilators. (4) Diabetes mellitus Current Visit: No Status: Chronic Assessment and plan: per hx. Blood sugars elevated, likely secondary to steroids. Increase SSI to medium scale. Monitor blood sugar and titrate PRN Qualifiers: Diabetes mellitus type: type 2 Diabetes mellitus superintendent container terminal insulin use: without longterm use Diabetes mellitus complication status: with hyperglycemia Qualified Code(s): E11.65 - Type 2 diabetes mellitus with hyperglycemia (5) CKD (chronic kidney disease) Current Visit: No Status: Chronic Assessment and plan: per hx. Renal function appears at baseline. Avoid nephrotoxic agents as possible. Monitor repeat renal function. Qualifiers: Chronic kidney disease stage: stage 3 (moderate) Qualified Code(s): N18.3 - Chronic kidney disease, stage 3 (moderate) (6) Hypertension Current Visit: Yes Status: Acute Assessment and plan: per hx. BP controlled . Cont home BP medication. Monitor BP and titrate PRN Qualifiers: Hypertension type: essential hypertension Qualified Code(s): I10 - Essential (primary) hypertension (7) DVT prophylaxis Current Visit: No Status: Acute Assessment and plan: heparin - Time Spent With Patient Total time spent is greater than 50% in coordination of care (as documented) at patient's floor/unit and/or counseling patient: - Subjective Interval history: Seen and examined at bedside. Patient is new to me, information obtained from chart review and patient report. Patient still says he short of breath but significantly improved. Lower extremity edema is about the same. No chest pain., No fevers or chills. No cough. - Constitutional Vitals: Temp Pulse Resp BP Pulse Ox 98.8 F 88 18 123/67 93 01/04/18 15:16 01/04/18 15:16 01/04/18 15:16 01/04/18 15:16 01/04/18 15:16 General appearance: Present: A&O X 3, no acute distress - Head Head exam: Present: atraumatic, normocephalic - Eye Eye exam: Present: PERRL, conjuntiva pink, sclera anicteric Pupils: Present: PERRL - Neck Neck exam general surgery: Present: supple, trachea midline. Absent: lymphadenopathy - Respiratory Respiratory exam: Present: CTAB, rhonchi, wheezes. Absent: accessory muscle use , rales - Cardiovascular Cardiovascular exam: Present: RRR, +S1, +S2. Absent: diastolic murmur, gallop, rubs, systolic murmur - GI/Abdominal GI/Abdominal exam: Present: normal bowel sounds, soft, no peritoneal signs. Absent: distended, tenderness - Extremities Exam Extremities exam: Present: pedal edema, warm, radial pulses palpable and symmetrical. Absent: calf tenderness, cyanotic - Neurological Exam Neurological exam: Present: CN II-XII intact, oriented X3, no focal deficits. Absent: pronater drift, facial droop, speech deficit - Skin Skin exam: Present: dry, intact Internal Medicine: Result - Labs CBC & Chem 7: 01/04/18 04:29 01/04/18 04:29 Labs: Short CBC 01/04/18 Range/Units 04:29 WBC 5.3 (4.3-11.1) K/mcL Hgb 13.4 (12.9-16.9) g/dL Hct 39.3 (37.5-50.1) % Plt Count 207 (140-400) K/mcL Neutrophils # 4.8 (1.6-8.9) K/mcL BMP 01/04/18 04:29 Sodium 137 Potassium 3.8 Chloride 97 L Carbon Dioxide 31 H BUN 30 H Creatinine 1.32 H Glucose 286 H Calcium 9.2 Consult Discharge Plan - Plan Referrals: Erica Benentt MD [Primary Care Provider] -
[2018-01-04] MEDS: Furosemide 40 MG/4 ML VIAL IVP SCH (17:56)
--- NOTE | 2018-01-04 19:25 | Electrocardiograph Report ---
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
[2018-01-04] MEDS: ALPRAZolam 0.25 MG TABLET PO SCH (20:49)
[2018-01-04] MEDS: Azithromycin 500 MG in D5% in Water 250 ML IVPB SCH (20:49)
[2018-01-04] MEDS: Famotidine 20 MG TABLET PO SCH (20:50)
[2018-01-05] MEDS: methylPREDNISolone 125 MG/2 ML VIAL IVP SCH ×3 (00:28→16:45)
[2018-01-05] MEDS: Ipratropium/Albuterol Neb 3 ML IH SCH ×4 (04:16→20:54)
[2018-01-05 04:51] LABS: Hematocrit 33.9 % (37.5-50.1); Mean Corpuscular HGB Conc 34.5 g/dL (31.6-35.5); Mean Corpuscular Hemoglobin 33.1 pg (28.0-33.3); Mean Corpuscular Volume 95.8 fL (83.0-100.0); Mean Platelet Volume 9.7 fL (9.4-12.4); Platelet Count 201 K/mcL (140-400); Red Blood Count 3.54 M/mcL (4.19-5.50); Red Cell Distribution Width 12.7 % (11.5-14.5)
[2018-01-05 04:59] LABS: Hemoglobin 11.7 g/dL (12.9-16.9)
[2018-01-05 05:16] LABS: BUN/Creatinine Ratio 30 (6-26); Blood Urea Nitrogen 38 mg/dL (8-23); Calcium 8.7 mg/dL (8.6-10.3); Carbon Dioxide 32 mEq/L (23-29); Chloride 101 mEq/L (98-107); Glucose 277 mg/dL (70-105); Osmolality,Calculated 309 (280-300); Potassium 3.6 mEq/L (3.5-5.1); Sodium 140 mEq/L (136-145); eGFR For African Americans > 60 (> 60); eGFR For Non-African Americans 53 (> 60)
[2018-01-05] MEDS: *HR* Heparin 5,000 UNIT/ML VIAL SQ SCH ×3 (05:43→20:41)
[2018-01-05] MEDS: Insulin LISPRO 300 UNITS/3 ML VIAL SQ SCH ×4 (08:35→21:16)
[2018-01-05] MEDS: Furosemide 40 MG/4 ML VIAL IVP SCH (08:35)
[2018-01-05] MEDS: (Alfuzosin Hcl [Uroxatral] 10 MG) PO SCH (08:36)
[2018-01-05] MEDS: amLODIPine 5 MG TABLET PO SCH (08:36)
[2018-01-05] MEDS: Gabapentin 300 MG CAPSULE PO SCH ×2 (08:36→20:41)
--- NOTE | 2018-01-05 10:42 | Internal Med Progress Note ---
Date of Encounter: 01/05/18 Time of Encounter: 10:41 - Assessment and plan (1) Acute respiratory failure with hypoxia Current Visit: No Status: Acute Assessment and plan: Multifactorial with COPD exacerbation and mild diastolic CHF exacerbation. Does not wear oxygen at home and now requiring 3 L O2 to maintain adequate oxygen saturations. Continue treating underlying causes. Wean O2 as possible. (2) Diastolic CHF, acute on chronic Current Visit: Yes Status: Acute Assessment and plan: Last echo in September 2017. Preserved EF with diastolic dysfunction. Now with new symptoms of lower extremity edema and acute respiratory failure. BNP mildly elevated, CXR nonacute. Continue IV Lasix, repeat echo. (3) COPD exacerbation Current Visit: Yes Status: Acute Assessment and plan: Suspected. Symptomatic with wheezing and shortness of breath. Continue IV steroids, azithromycin and bronchodilators. (4) Diabetes mellitus Current Visit: No Status: Chronic Assessment and plan: per hx. Blood sugars elevated, likely secondary to steroids. Increase SSI to medium scale, add long acting. Monitor blood sugar and titrate PRN Qualifiers: Diabetes mellitus type: type 2 Diabetes mellitus alf insulin use: without elderly companion use Diabetes mellitus complication status: with hyperglycemia Qualified Code(s): E11.65 - Type 2 diabetes mellitus with hyperglycemia (5) CKD (chronic kidney disease) Current Visit: No Status: Chronic Assessment and plan: per hx. Renal function appears at baseline. Avoid nephrotoxic agents as possible. Monitor repeat renal function. Qualifiers: Chronic kidney disease stage: stage 3 (moderate) Qualified Code(s): N18.3 - Chronic kidney disease, stage 3 (moderate) (6) Hypertension Current Visit: Yes Status: Acute Assessment and plan: per hx. BP controlled . Cont home BP medication. Monitor BP and titrate PRN Qualifiers: Hypertension type: essential hypertension Qualified Code(s): I10 - Essential (primary) hypertension (7) DVT prophylaxis Current Visit: No Status: Acute Assessment and plan: heparin - Time Spent With Patient Total time spent is greater than 50% in coordination of care (as documented) at patient's floor/unit and/or counseling patient: - Subjective Interval history: Seen and examined at bedside; says she had an eventful night. Still gets SOB with exertion but overall improved. He feels lower extremity edema is a little better. No CP - Constitutional Vitals: Temp Pulse Resp BP Pulse Ox 97.4 F L 79 16 111/67 97 01/05/18 10:31 01/05/18 10:31 01/05/18 10:31 01/05/18 10:31 01/05/18 10:13 General appearance: Present: A&O X 3, no acute distress - Head Head exam: Present: atraumatic, normocephalic - Eye Eye exam: Present: PERRL, conjuntiva pink, sclera anicteric Pupils: Present: PERRL - Neck Neck exam general surgery: Present: supple, trachea midline. Absent: lymphadenopathy - Respiratory Respiratory exam: Present: CTAB. Absent: accessory muscle use, rales, rhonchi, wheezes - Cardiovascular Cardiovascular exam: Present: RRR, +S1, +S2, systolic murmur. Absent: diastolic murmur, gallop, rubs - GI/Abdominal GI/Abdominal exam: Present: normal bowel sounds, soft, no peritoneal signs. Absent: distended, tenderness - Extremities Exam Extremities exam: Present: warm, radial pulses palpable and symmetrical. Absent : calf tenderness, cyanotic, pedal edema - Neurological Exam Neurological exam: Present: CN II-XII intact, oriented X3, no focal deficits. Absent: pronater drift, facial droop, speech deficit - Skin Skin exam: Present: dry, intact Internal Medicine: Result - Labs CBC & Chem 7: 01/05/18 04:04 01/05/18 04:04 Labs: Short CBC 01/05/18 Range/Units 04:04 WBC 9.7 D (4.3-11.1) K/mcL Hgb 11.7 L D (12.9-16.9) g/dL Hct 33.9 L (37.5-50.1) % Plt Count 201 (140-400) K/mcL [facility] 01/05/18 04:04 Sodium 140 Potassium 3.6 Chloride 101 Carbon Dioxide 32 H BUN 38 H Creatinine 1.27 Glucose 277 H Calcium 8.7 - Impressions Impressions Echocardiogram Limited Views 01/05/18 16:02 Impressions: LVEF 50-55%. Atypical septal motion consistent with bundle branch block. Normal right ventricular structure and function. Normal visualized portions of the proximal ascending thoracic aorta. Left Ventricular Wall Motion: Rest Echo Findings All wall segments showed normal motion. Findings: Study Quality * Technically adequate exam. ECG Findings * Sinus rhythm with BBB. Left Ventricle * LVEF 50-55%. * Atypical septal motion consistent with bundle branch block. * Normal LV chamber size and wall thickness. Right Ventricle * Normal right ventricular structure and function. Aorta * Normally sized aortic root. * Normal visualized portions of the proximal ascending thoracic aorta. Pericardium * There is no pericardial effusion present. Right Atrium * Normal right atrial size. Left Atrium * Moderate-severely dilated left atrium. IVC * Normal IVC dimensions and inspiratory collapse. Tricuspid Valve * Estimated RA pressure is 3 mmHg. Consult Discharge Plan - Plan Referrals: Erica Bennett MD [Primary Care Provider] -
[2018-01-05] MEDS: Insulin DETEMIR 100 UNIT/ML X5UNITS SQ SCH ×2 (11:58→21:17)
[2018-01-05 15:26] LABS: Adenovirus Not Detected (Not Detect); Coronavirus 229E Not Detected (Not Detect); Coronavirus HKU1 Not Detected (Not Detect); Coronavirus NL63 Not Detected (Not Detect); Coronavirus OC43 Not Detected (Not Detect); Human Metapneumovirus Not Detected (Not Detect); Human Rhinovirus/Enterovirus Not Detected (Not Detect)
[2018-01-05 15:27] LABS: Bordetella Pertussis Not Detected (Not Detect); Chlamydophila pneumoniae Not Detected (Not Detect); Influenza A Subtype 2009 H1 Not Detected (Not Detect); Influenza A Untypeable Not Detected (Not Detect); Influenza B Not Detected (Not Detect); Mycoplasma pneumoniae Not Detected (Not Detect); Parainfluenza Virus 1 Not Detected (Not Detect); Parainfluenza Virus 2 Not Detected (Not Detect); Parainfluenza Virus 3 Not Detected (Not Detect); Parainfluenza Virus 4 Not Detected (Not Detect); Respiratory Syncytial Virus Not Detected (Not Detect)
[2018-01-05] MEDS: ALPRAZolam 0.25 MG TABLET PO SCH (20:41)
[2018-01-05] MEDS: Azithromycin 500 MG in D5% in Water 250 ML IVPB SCH (20:41)
[2018-01-05] MEDS: Famotidine 20 MG TABLET PO SCH (20:42)
[2018-01-06] MEDS: methylPREDNISolone 125 MG/2 ML VIAL IVP SCH ×2 (00:24→08:54)
[2018-01-06] MEDS: Ipratropium/Albuterol Neb 3 ML IH SCH ×2 (03:34→10:22)
[2018-01-06] MEDS: *HR* Heparin 5,000 UNIT/ML VIAL SQ SCH (05:57)
[2018-01-06 07:53] LABS: Hemoglobin 12.2 g/dL (12.9-16.9); Mean Corpuscular HGB Conc 33.9 g/dL (31.6-35.5); Mean Corpuscular Hemoglobin 32.5 pg (28.0-33.3); Mean Platelet Volume 9.4 fL (9.4-12.4); Platelet Count 189 K/mcL (140-400); Red Blood Count 3.75 M/mcL (4.19-5.50); Red Cell Distribution Width 13.1 % (11.5-14.5)
[2018-01-06 07:57] LABS: BUN/Creatinine Ratio 33 (6-26); Blood Urea Nitrogen 40 mg/dL (8-23); Carbon Dioxide 32 mEq/L (23-29); Chloride 104 mEq/L (98-107); Glucose 199 mg/dL (70-105); Osmolality,Calculated 309 (280-300); Potassium 3.1 mEq/L (3.5-5.1); Sodium 142 mEq/L (136-145); eGFR For African Americans > 60 (> 60); eGFR For Non-African Americans 57 (> 60)
[2018-01-06] MEDS: amLODIPine 5 MG TABLET PO SCH (08:53)
[2018-01-06] MEDS: Furosemide 40 MG/4 ML VIAL IVP SCH (08:54)
[2018-01-06] MEDS: Gabapentin 300 MG CAPSULE PO SCH (08:54)
[2018-01-06] MEDS: Insulin LISPRO 300 UNITS/3 ML VIAL SQ SCH (08:54)
[2018-01-06] MEDS: (Alfuzosin Hcl [Uroxatral] 10 MG) PO SCH (08:55)
[2018-01-06 10:47] VITALS: BP 155/72
--- NOTE | 2018-01-06 11:17 | Discharge Summary ---
- NOTES TO OUTPATIENT PROVIDER Notes to Outpatient Provider: Recommend repeat CBC and CMP within 1 week Orders not resulted at time of discharge: Pending orders 01/04/18 11:32 Culture,Sputum with Gram Stain [RM] Routine 01/05/18 08:19 Occult Blood,Stool [BF] Stat 01/07/18 04:00 BMP [Basic Metabolic Panel] AM 0400 Complete Blood Count w/o Diff [HEME] AM 04001/08/18 04:00 BMP [Basic Metabolic Panel] AM 0400 Complete Blood Count w/o Diff [HEME] AM 0400 01/09/18 04:00 BMP [Basic Metabolic Panel] AM 0400 Complete Blood Count w/o Diff [HEME] AM 0400 Date of Encounter: 01/06/18 Time of Encounter: 11:15 - Discharge Diagnosis (1) Acute respiratory failure with hypoxia Priority: Primary Status: Resolved Comments: Multifactorial with COPD exacerbation and mild diastolic CHF exacerbation. Does not wear oxygen at home; required 3 L O2 to maintain adequate oxygen saturations. Oxygen weaned with treating COPD and CHF exacerbation as noted below. Adequately oxygenating on room air at time of discharge. (2) Diastolic CHF, acute on chronic Priority: Primary Status: Acute Comments: Has known history of diastolic dysfunction. Not on diuretics at home. Presented with worsening SOB and lower extremity edema. BNP 200, CXR nonacute. TTE with EF 50% (unchanged from 09/2017 echo). Symptoms improved with IV diuresis. Discharge home on low-dose Lasix. Follow-up with cardiology as previously scheduled. Educated on daily weights, fluid restriction, low sodium diet. (3) COPD exacerbation Priority: Primary Status: Acute Comments: Suspected. Symptomatic with wheezing and shortness of breath. CXR non-acute. Sx's improved with IV steroids, azithromycin and bronchodilators. Discharge home on 2 day course steroid (treated for 3 days with IV steroids), azithromycin. Recommend follow-up with PCP within 1-2 weeks (4) Diabetes mellitus Priority: Secondary Status: Chronic Comments: per hx. Blood sugars elevated, likely secondary to steroids. Treated with medium SSI, long acting insulin while inpatient. Resume home diabetes medication regimen at discharge. 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 Renal function appears at baseline. Qualifiers: Chronic kidney disease stage: stage 3 (moderate) Qualified Code(s): N18.3 - Chronic kidney disease, stage 3 (moderate) (6) Hypertension Priority: Secondary Status: Acute Comments: per hx. BP controlled . Cont home BP medication Qualifiers: Hypertension type: essential hypertension Qualified Code(s): I10 - Essential (primary) hypertension (7) Syncope Priority: Secondary Status: Acute Comments: per hx. Has loop recorder. Follows with Dr. Velasquez with Cardiology. Per chart review, loop recorder remote check showed 4 pauses 09/2017. Plan for PPM . Qualifiers: Syncope type: unspecified Qualified Code(s): R55 - Syncope and collapse (8) Vertebral artery disease Priority: Secondary Status: Chronic Comments: per hx. Follows with Dr. Wong. Not candidate for vertebral artery angioplasty per chart reviee. Cont plavix, statin Hospital course: See assessment and plan for hospital course. Discharge discussed with: patient (Seen and examined at bedside. Patient says he feels much better today and would like to go home. No shortness of breath. Still has some lower extremity swelling but he feels this is significantly improved. No chest pain. at bedside and updated.), family - Time Spent with Patient Total time spent providing and/or coordinating discharge services: Less than 30 minutes - Discharge Medications Prescriptions: Azithromycin 250 mg PO DAILY #3 tablet Furosemide [Lasix] 20 mg PO DAILY #30 tablet predniSONE [PredniSONE] 40 mg PO DAILY #4 tablet Home Medications: ALPRAZolam [Xanax 0.25 MG Tablet] 0.5 mg PO HS 02/27/16 [History] Atorvastatin [Lipitor] 10 mg PO HS 02/27/16 [History] Clopidogrel [Plavix] 75 mg PO DAILY 02/27/16 [History] Cyanocobalamin (B-12) [Vitamin B12] 1,000 mcg IM QMONTH 02/27/16 [History] Gabapentin [Neurontin] 600 mg PO BID 02/27/16 [History] Glimepiride [Amaryl] 2 - 4 mg PO QAM 02/27/16 [History] Pramipexole [Mirapex] 0.25 mg PO HS 02/27/16 [History] Ranitidine HCl [Zantac 75] 150 mg PO BID 02/27/16 [History] metFORMIN [Glucophage] 1,000 mg PO BID 02/27/16 [History] Amlodipine Besylate 10 mg PO DAILY 09/13/17 [History] Albuterol Neb [Proventil Neb] 2.5 mg IH TID 01/03/18 [History] Alfuzosin HCl [Uroxatral] 10 mg PO DAILY 01/03/18 [History] Polyethylene Glycol 3350 [MiraLAX] 17 gm PO DAILY PRN 01/03/18 [History] Azithromycin 250 mg PO DAILY #3 tablet 01/06/18 [Rx] Furosemide [Lasix] 20 mg PO DAILY #30 tablet 01/06/18 [Rx] predniSONE [PredniSONE] 40 mg PO DAILY #4 tablet 01/06/18 [Rx] Allergies/Adverse Reactions: 3 Allergy/AdvReac Type Severity Reaction Status Date / Time Sulfa (Sulfonamide Allergy Rash Verified 01/03/18 15:10 Antibiotics) carbidopa AdvReac Gastrointestinal Verified 01/03/18 15:10 Upset clonazepam AdvReac Gastrointestinal Verified 01/03/18 15:10 Upset clotrimazole AdvReac Gastrointestinal Verified 01/03/18 15:10 Upset fexofenadine [From Brandy] AdvReac Gastrointestinal Verified 01/03/18 15:10 Upset guaifenesin [From Robitussin] AdvReac Gastrointestinal Verified 01/03/18 15:10 Upset hydrochlorothiazide AdvReac Rash Verified 01/03/18 15:10 levodopa [From Sinemet] AdvReac Gastrointestinal Verified 01/03/18 15:10 Upset pioglitazone [From Actos] AdvReac Gastrointestinal Verified 01/03/18 15:10 Upset ropinirole [From Requip] AdvReac Gastrointestinal Verified 01/03/18 15:10 Upset sertraline [From Zoloft] AdvReac Drowsy Verified 01/03/18 15:10 tamsulosin [From Flomax] AdvReac Gastrointestinal Verified 01/03/18 15:10 Upset Date of admission: 01/03/18 19:15 Primary care physician: Erica Escoto-[facility] Consults: 01/04/18 02:00 Consult to Machine Clothing Man [CONS] Routine Reason for SW Consult: patient from home with no home oxygen, currently on oxygen @2L via [place] 01/06/18 08:49 Consult to Nurse Navigator [CONS] Routine Comment: Discharging clinician: [place] Russell Anticipated date of discharge: 01/06/18 - Constitutional Vitals: Temp Pulse Resp BP Pulse Ox 98.0 F 79 17 155/72 93 01/06/18 10:46 01/06/18 10:46 01/06/18 10:46 01/06/18 10:46 01/06/18 10:46 General appearance: Present: A&O X 3, no acute distress - Head Head exam: Present: atraumatic, normocephalic - Eye Eye exam: Present: PERRL, conjuntiva pink, sclera anicteric Pupils: Present: PERRL - Neck Neck exam general surgery: Present: supple, trachea midline. Absent: lymphadenopathy - Respiratory Respiratory exam: Present: CTAB. Absent: accessory muscle use, rales, rhonchi, wheezes - Cardiovascular Cardiovascular exam: Present: RRR, +S1, +S2. Absent: diastolic murmur, gallop, rubs, systolic murmur - GI/Abdominal GI/Abdominal exam: Present: normal bowel sounds, soft, no peritoneal signs. Absent: distended, tenderness - Extremities Exam Extremities exam: Present: pedal edema, warm, radial pulses palpable and symmetrical. Absent: calf tenderness, cyanotic - Neurological Exam Neurological exam: Present: CN II-XII intact, oriented X3, no focal deficits. Absent: pronater drift, facial droop, speech deficit - Skin Skin exam: Present: dry, intact - Patient Status Disposition: Home, Self-Care Condition: Good Functional capacity at discharge: independent ambulation Overall status at discharge: patient is progressing back to baseline - Discharge Instructions Instructions: Furosemide (By mouth), Prednisone (By mouth), Azithromycin (By mouth), Heart Failure (DC) Follow Up With: Erica Bennett MD [Primary Care Provider] - (Please call for follow-up appointment within 1 week) Rah Velasquez MD [Partnered Physician] - (Please keep appointment as previously scheduled) - Diet and Activity Activity: increase activity as tolerated Diet: diabetic diet, low fat, low cholesterol, low salt diet
[2018-01-06] MEDS: Insulin DETEMIR 100 UNIT/ML X5UNITS SQ SCH (11:57)
--- NOTE | 2018-01-07 20:03 | Event Note ---
Date of Encounter: 01/07/18 Time of Encounter: 20:01 Infection control report reveals sputum culture growing gram-negative rods. Patient was sent home on a macrolide. Organism not sensitive to macrolide antibiotics. After reviewing allergies and patient information the Patient was contacted and informed that I would be giving him a prescription for cefdinir 300 mg by mouth Q12 hours 5 days. Patient was informed of potential allergic reactions and signs and symptoms. He is instructed to return to the emergency department should signs or symptoms of an allergy develop. Additionally, they were instructed that should his symptoms worsen or persist that he should contact his primary care provider.
== END 2018-01-06 12:40 | disposition home or self-care (01) | DRG 291 ==
LOC: EMEROO 15:02 → 3BNU 15:02
PROVIDERS: ADMIT Hospitalist; ATTEND Registered Nurse